=== PATIENT | female | born 1950 | race Caucasian/White ===

== ENCOUNTER → 2016-10-21 | Outpatient (CLI) | payer OTHER ==
[~2016-10-21] MED LIST: ACET-24 PO; ADAL1KIT SC; ALBUAER2 INH; ASPEC325 PO; CALC-20 PO; CETI10TA10 PO; CHOL100010 PO; FOLI1TAB7 PO; LISI10TA PO; MAGN400C2 PO; MONT1TAB3 PO; MORP-157 PO; MULT-506 PO; PROP60CA PO; RXC5 PO; SIMV20TA5 PO; VENL150T33 PO; [UNRECOGNIZED DRUG - CODE] PO
[2016-10-21 13:10] LABS: BASO % 1.9 %; BASO ABS # 0.12 K/uL (0-0.2); COMPLETE YES; EOS % 6.2 %; HEMATOCRIT 40.4 % (37-47); LYMPH % 23.3 %; LYMPH ABS # 1.47 K/uL (1.2-3.4); MEAN CELL VOLUME 86.3 fL (80-100); MEAN CORPUSCULAR HEMOGLOBIN 29.1 pg (25-34); MEAN CORPUSCULAR HGB CONC 33.7 g/dl (32-36); MEAN PLATELET VOLUME 11.1 fL (7.4-10.4); MONO % 14.9 %; NEUT % 53.7 %; PLATELET COUNT 203 K/uL (130-400); RED BLOOD COUNT 4.68 M/uL (4.2-5.4)
[2016-10-21 13:42] LABS: ALT/SGPT 36 U/L (12-78); AST/SGOT 22 U/L (15-37); BLOOD UREA NITROGEN 17 mg/dl (7-18); BUN/CREATININE RATIO 16.5 (10-20); CALCIUM 9.1 mg/dl (8.5-10.1); CARBON DIOXIDE 28 mmol/L (21-32); CHLORIDE 104 mmol/L (98-107); GLUCOSE 82 mg/dl (70-99); POTASSIUM 3.7 mmol/L (3.5-5.1); SODIUM 141 mmol/L (136-145)
[2016-10-21 13:44] LABS: ALB/GLOB RATIO 1.2 (0.9-2); ALKALINE PHOSPHATASE 85 U/L (45-117)
== END | disposition home or self-care (01) ==
LOC: C.LAB1850 11:48
PROVIDERS: ATTEND Internal Medicine
DX: K50.90 Crohn's disease, unspecified, without complications (principal)

== ENCOUNTER → 2017-03-07 | Outpatient (CLI) | payer OTHER ==
[~2017-03-07] MED LIST changes: -PROP60CA PO
--- NOTE | 2017-03-07 15:19 | MAMMOGRAPHY REPORT ---
BILATERAL DIGITAL SCREENING MAMMOGRAM WITH CAD: 03/07/2017 CLINICAL HISTORY: Routine screening. Patient has no complaints. TECHNIQUE: Bilateral CC and MLO views were obtained. Current study was also evaluated with a Compute r Aided Detection (CAD) system. COMPARISON: Comparison is made to exams dated: 03/04/2016 mammogram, 03/18/2014 mammogram, 02/27/2013 m ammogram, 02/22/2012 mammogram, 01/22/2011 ultrasound, and 01/22/2011 mammogram - [facility]. BREAST COMPOSITION: There are scattered areas of fibroglandular density in both breasts. FINDINGS: There is a stable intramammary lymph node in the right upper outer quadrant. The parenchy mal pattern is similar to prior mammograms. No new suspicious mass, architectural distortion or clus ter of microcalcifications is seen. IMPRESSION: ACR BI-RADS CATEGORY 1: NEGATIVE There is no mammographic evidence of malignancy. A 1 year screening mammogram is recommended. The pa tient will receive written notification of the results. Approximately 10% of breast cancers are not detected with mammography. A negative mammographic report should not delay biopsy if a clinically suggestive mass is present. Nayeli Steele M.D. ay/:03/07/2017 14:58:43 Authorization Manager: Jo Pappas RT(R)(M), [facility] letter sent: Normal 1/2 BI-RADS Code: ACR BI-RADS Category 1: Negative
== END | disposition home or self-care (01) ==
LOC: C.MAMM 13:39
PROVIDERS: ATTEND Nurse Practitioner
DX: Z12.31 Encounter for screening mammogram for malignant neoplasm of breast (principal)

== ENCOUNTER 2017-04-05 05:24 | Inpatient (IN) | payer OTHER ==
[2017-03-04 11:10] VITALS: BMI 31.0
--- NOTE | 2017-03-04 11:42 | PAT Medication Instructions ---
Service Date Mar 04, 2017. Current Home Medication List Adalimumab (Humira), 40 MG SC Q2WK Albuterol (Ventolin), 2 PUFFS INH QID PRN for PRN Calcium Carbonate-Vitamin D (Calcium 600 + D), 1 TAB PO QPM Cetirizine Hcl (Zyrtec), 10 MG PO QAM Cholecalciferol (Vitamin D), 1,000 INTER.UNIT PO QAM Digestive Enzymes (Betaine Hcl), 2 CAP PO TIDM Folic Acid (Folvite), 1 MG PO QAM Lisinopril (Prinivil), 10 MG PO QAM Magnesium Oxide (Magnesium Oxide), 400 MG PO BID Montelukast Sodium (Singulair), 10 MG PO QPM Multivitamin (Multivitamin), 1 TAB PO BID Simvastatin (Zocor), 20 MG PO HS Venlafaxine Hcl (Venlafaxine Hcl Er), 300 MG PO HS Medication Instructions For Your Scheduled Surgery Adalimumab (Humira), 40 MG SC Q2WK (hold 2 weeks prior to surgery per surgeon instructions) - Hold the following medications the morning of surgery: Multivitamin (Multivitamin), 1 TAB PO BID Magnesium Oxide (Magnesium Oxide), 400 MG PO BID Lisinopril (Prinivil), 10 MG PO QAM Folic Acid (Folvite), 1 MG PO QAM Cetirizine Hcl (Zyrtec), 10 MG PO QAM Cholecalciferol (Vitamin D), 1,000 INTER.UNIT PO QAM Digestive Enzymes (Betaine Hcl), 2 CAP PO TIDM - Take the following medications the morning of surgery with a sip of water: Albuterol (Ventolin), 2 PUFFS INH QID PRN for PRN (bring with you to hospital on day of surgery) - Take the following medications as scheduled the night before surgery: Simvastatin (Zocor), 20 MG PO HS Venlafaxine Hcl (Venlafaxine Hcl Er), 300 MG PO HS Multivitamin (Multivitamin), 1 TAB PO BID Montelukast Sodium (Singulair), 10 MG PO QPM Magnesium Oxide (Magnesium Oxide), 400 MG PO BID Digestive Enzymes (Betaine Hcl), 2 CAP PO TID Calcium Carbonate-Vitamin D (Calcium 600 + D), 1 TAB PO QPM Albuterol (Ventolin), 2 PUFFS INH QID PRN for PRN If you have any questions please call us at [phone] or [phone] ( Xin) or [phone]
[2017-03-04 12:22] LABS: BASO % 1.2 %; BASO ABS # 0.08 K/uL (0-0.2); COMPLETE YES; HEMATOCRIT 41.4 % (37-47); IG% 0.1 %; LYMPH ABS # 2.68 K/uL (1.2-3.4); MEAN CELL VOLUME 86.4 fL (80-100); MEAN CORPUSCULAR HEMOGLOBIN 28.6 pg (25-34); MEAN CORPUSCULAR HGB CONC 33.1 g/dl (32-36); MEAN PLATELET VOLUME 10.9 fL (7.4-10.4); MONO % 8.6 %; NEUT % 45.1 %; PLATELET COUNT 215 K/uL (130-400); RED BLOOD COUNT 4.79 M/uL (4.2-5.4); WHITE BLOOD COUNT 6.87 K/uL (4.8-10.8)
[2017-03-04 12:37] LABS: PROTHROMBIN TIME (PATIENT) 10.7 SECONDS (9.0-12.0)
[2017-03-04 12:41] LABS: BLOOD UREA NITROGEN 18 mg/dl (7-18); BUN/CREATININE RATIO 17.8 (10-20); C-REACTIVE PROTEIN < 0.29 mg/dl (0-0.29); CALCIUM 9.8 mg/dl (8.5-10.1); CARBON DIOXIDE 28 mmol/L (21-32); CHLORIDE 106 mmol/L (98-107); GLUCOSE 85 mg/dl (70-99); POTASSIUM 3.7 mmol/L (3.5-5.1); SODIUM 141 mmol/L (136-145)
--- NOTE | 2017-04-01 08:06 | HISTORY & PHYSICAL EXAMINATION ---
DATE OF ADMISSION: 04/05/2017 CHIEF COMPLAINT: Bilateral knee pain, right side greater than left. HISTORY OF PRESENT ILLNESS: A 66-year-old white female status post a right knee arthroscopy done just about 2 years ago who presents for definitive treatment for her right knee pain primarily. She has had very poor response to the knee arthroscopy, really did not help her much at all. Postop she had recurrent effusions treated with aspiration and injection which provided very temporary relief. Over time pain has become more disabling. She has tried anti-inflammatories with minimal relief. She has pain with every step. Pain is more on the medial side of the knee. She has a very limited walking tolerance. Having difficulty maintaining any degree of activity. X-rays show progressive knee arthritis and now she wants to proceed with knee replacement. PAST MEDICAL HISTORY: 1. Hypertension. 2. Elevated cholesterol. 3. Mild asthma. 4. Prediabetes. 5. Migraine headaches. 6. Hiatal hernia. 7. Moderate obesity with a BMI of 31.4. 8. Osteoarthritis. PAST SURGICAL HISTORY: Includes: 1. Appendectomy and T&A. 2. Right knee arthroscopy done 01/01/2015. ALLERGIES: ADVAIR, BACLOFEN, BIAXIN, FIORICET. CURRENT MEDICINES: Include: 1. Betaine hydrochloride 605 mg 2 tablets with each meal. 2. Calcium 2,000 mg. 3. Folic acid 1 mg. 4. Humira 40 mg every other week. 5. Lisinopril 10 mg a day. 6. Magnesium 500 mg a day. 7. Montelukast 10 mg a day. 8. Multivitamin. 9. Simvastatin 20 mg in the evening. 10. Venlafaxine 150 mg tablets 2 in the evening. 11. Vitamin D3 once a day. 12. Zyrtec. SOCIAL HISTORY: A 66-year-old white female. She is . FAMILY HISTORY: Noncontributory. REVIEW OF SYSTEMS: Negative for diabetes, neurologic problems, vascular problems, bleeding disorders. She is on Humira every other week. NECK: No history of DVT or PE. PHYSICAL EXAMINATION: GENERAL: Reveals a healthy pleasant, middle-aged female. She looks to be in good health. HEAD, EYES, EARS, NOSE, AND THROAT EXAMINATION: Benign. NECK: Supple. No lymphadenopathy. LUNGS: Clear to auscultation. HEART: Has a regular rate and rhythm. ABDOMEN: Soft, nontender, nondistended. EXTREMITY EXAMINATION: Grossly neurovascularly intact except as follows: Examination of the right knee reveals patient ambulates with a bit of a limp. She has got slight varus alignment to her knee. Walks with a bit of a stiff knee gait. Moderate-sized knee effusion. Range of motion is 10 degrees short of full extension and 120 degrees of flexion. X-RAYS: X-rays of the right knee reveal advanced right knee DJD. She has complete loss of medial joint space. This has progressed significantly over the past 2 years. She has got some patellofemoral disease as well. ASSESSMENT: A 66-year-old white female 2 years out from right knee arthroscopy, partial meniscectomy, chondroplasty with progressive knee arthritis unresponsive to conservative treatment. PLAN: We are going to take him to the operating room and do a right total knee replacement. The risks and benefits of this procedure were explained to the patient including but not limited to DVT, PE, , infection, neurological injury, vascular injury, bleeding problem, pain, limited range of motion, stiffness, failure to relief symptoms, incomplete relief of symptoms, need for further surgery in the future, fracture, leg length inequality, nerve palsy, need for blood transfusion, etc. The patient understands and desires to proceed. Informed consent was obtained. We did talk about holding her Humira 2 weeks preop and 2 weeks postop. She will hold the lisinopril the morning of surgery and hold the Aleve 10 days preop. As far as discharge plans, she is planning to be discharged home using [facility] home health program.
[~2017-04-05] VITALS: Ht 165.1 cm; Wt 85.5 kg
[2017-04-05] VITALS (9 sets, daily range): BP systolic 134–166; BP diastolic 71–99; PULSE 63–79; TEMP 36.4–37; O2SAT 96–100; Ht 165.1 cm; Wt 85.5 kg
[~2017-04-05 05:24] MED LIST changes: -ACET-24 PO; -ASPEC325 PO; -MORP-157 PO; -RXC5 PO
[2017-04-05] MEDS ORDERED: LACTATED RINGER'S 1000ML 1,000 ML IV SCH (06:00)
[2017-04-05] MEDS ORDERED: CEFAZOLIN 2000 MG/60 ML D5W 60 ML IV SCH (06:00)
[2017-04-05] MEDS ORDERED: LACTATED RINGER'S 1000ML IV SCH (06:00)
[2017-04-05] MEDS ORDERED: METOCLOPRAMIDE HCL 10 MG TAB PO SCH (06:00)
[2017-04-05] MEDS ORDERED: SCOPOLAMINE 1.5 MG TDSY TD SCH (06:00)
[2017-04-05] MEDS ORDERED: ACETAMINOPHEN 500 MG TAB PO SCH (06:00)
[2017-04-05] MEDS ORDERED: LACTATED RINGER'S 1000ML 500 ML IV ONE (06:00)
[2017-04-05] MEDS ORDERED: TRANEXAMIC ACID INJ 1,000 MG in SODIUM CHLORIDE 0.9% 100ML 100 ML IV SCH ×2 (06:00→15:00)
[2017-04-05] MEDS ORDERED: FAMOTIDINE 20 MG TAB PO SCH (06:00)
[2017-04-05] MEDS ORDERED: BUPIVACAINE LIPOSOME 266 MG, BUPIVACAINE/EPINEPHRINE INJ 50 ML, SODIUM CHLORIDE 0.9% PF... INFIL SCH ×3 (06:00)
[2017-04-05] MEDS ORDERED: GABAPENTIN 300 MG CAP PO SCH (06:00)
[2017-04-05] MEDS ORDERED: BUPIVACAINE/EPINEPHRINE 0.25% 10 ML VIAL ONE ×3 (06:17→06:34)
[2017-04-05] MEDS ORDERED: BUPIVACAINE 0.5 % 5 MG/1 ML PF 10ML VIAL ONE (06:17)
[2017-04-05] MEDS ORDERED: DEXAMETHASONE SOD INJ 4 MG/ML VIAL ONE (06:18)
[2017-04-05] MEDS ORDERED: SODIUM CHLORIDE 0.9% PF 50 ML VIAL ONE (06:29)
[2017-04-05] MEDS ORDERED: BUPIVACAINE LIPOSOME 1/3% 266 MG/20 ML VIAL INFIL ONE (06:29)
[2017-04-05] MEDS ORDERED: BACITRACIN 50000 UNIT VIAL ONE (06:29)
[2017-04-05] MEDS ORDERED: MIDAZOLAM HCL 1 MG/ML 2ML VIAL ONE (06:34)
[2017-04-05] MEDS ORDERED: FENTANYL CITRATE INJ 50 MCG/1 ML 2 ML VIAL ONE ×2 (06:34→07:55)
--- NOTE | 2017-04-05 06:46 | History & Physical Bridge Note ---
H&P Re-Evaluation Bridge Note: I have examined the patient, reviewed the History & Physical and in the interval since the performance of the History & Physical I have noted the following changes of clinical significance: No changes noted
[2017-04-05] MEDS ORDERED: ONDANSETRON INJ 2 MG/ML 2 ML VIAL IV PRN ×2 (07:15→09:00)
[2017-04-05] MEDS ORDERED: EpHEDrine SULFATE INJ 50 MG/ML AMP IV PRN (07:15)
[2017-04-05] MEDS ORDERED: FENTANYL CITRATE INJ 50 MCG/1 ML 2 ML VIAL IV PRN (07:15)
[2017-04-05] MEDS ORDERED: ATROPINE SULFATE 0.1 MG/ML 5ML SYR IV PRN (07:15)
[2017-04-05] MEDS ORDERED: PROMETHAZINE HCL INJ 6.25 MG in SODIUM CHLORIDE 0.9% 50ML 50 ML IV PRN (07:15)
[2017-04-05] MEDS ORDERED: VANCOMYCIN HCL 1000MG/20ML VIAL ONE (07:25)
[2017-04-05] MEDS ORDERED: PROPOFOL IV EMULSION 10 MG/ML 20 ML VIAL IV ONE ×2 (07:42)
[2017-04-05] MEDS ORDERED: LIDOCAINE HCL 2% 2 ML VIAL (20MG/ML) ONE (07:42)
--- NOTE | 2017-04-05 08:52 | [facility] Post Operative Brief Note ---
Immediate Operative Summary Operative Date Apr 05, 2017. Pre-Operative Diagnosis Right Knee Degenerative Joint Disease Post-Operative Diagnosis Same as preop Procedure(s) Performed Right Total Knee Arthroplasty Surgeon Dr. Avtar Nguyen Airplane Pilot Supervisor Surgeon(s) Carlos Elizondo PA-C Estimated Blood Loss 50 ml Findings Right Knee DJD Fluids (cc crystalloids) 1500 cc Specimens A. Right Knee Bone and Tissue Drains None Anesthesia Spinal Complication(s) None Disposition Recovery Room / PACU
[2017-04-05] MEDS ORDERED: ALUMINUM/MAGNESIUM/SIMETH (MAALOX MAX) 30 ML UDC PO PRN (09:00)
[2017-04-05] MEDS ORDERED: METOCLOPRAMIDE HCL INJ 5 MG/ML 2 ML VIAL IV PRN (09:00)
[2017-04-05] MEDS ORDERED: HYDROmorphone INJ 0.5 MG/0.5 ML SYR IV PRN (09:00)
[2017-04-05] MEDS ORDERED: SILVER SULFADIAZINE 1% CR 50 GM JAR EXT PRN (09:00)
[2017-04-05] MEDS ORDERED: OXYCODONE HCL IR 5 MG TAB (IMMEDIATE RELEASE) PO PRN (09:00)
[2017-04-05] MEDS ORDERED: BISACODYL 10 MG SUPP PR PRN (09:00)
[2017-04-05] MEDS ORDERED: MULTIVITAMIN TAB PO SCH (09:00)
[2017-04-05] MEDS ORDERED: ZOLPIDEM TARTRATE 5 MG TAB PO PRN (09:00)
[2017-04-05] MEDS ORDERED: ALBUTEROL HFA 8 GM INHALER INH PRN (09:00)
[2017-04-05] MEDS ORDERED: MAGNESIUM HYDROXIDE SUSP 30 ML UDC PO PRN (09:00)
--- NOTE | 2017-04-05 09:25 | DIAGNOSTIC IMAGING REPORT ---
RIGHT KNEE 2 VIEWS History: Right total knee arthroplasty. Degenerative arthritis. Postop. FINDINGS: The patient is status post a right total knee arthroplasty. The hardware is intact. No fracture or dislocation. Skin ankita are in place. IMPRESSION: Right total knee arthroplasty. No evidence for hardware complication. Electronically signed by: Cody Bravo M.D. 04/05/2017 9:23 AM Dictated Date/Time: 04/05/2017 9:23 AM
--- NOTE | 2017-04-05 09:40 | Anesthesiology Progress Note ---
Anesthesia Post Op Note Date & Time Apr 05, 2017 at 09:40 Vital Signs Pain Intensity: 0 Vital Signs Past 12 Hours Date Time Temp Pulse Resp B/P (MAP) Pulse Ox O2 Delivery O2 Flow Rate FiO2 04/05/17 09:25 36.9 76 18 128/65 99 Nasal Cannula 2 04/05/17 09:10 36.9 78 18 130/65 99 Nasal Cannula 2 04/05/17 09:02 79 18 123/69 99 Mask 5 04/05/17 08:53 36.5 79 16 119/62 94 Mask 5 04/05/17 05:43 36.9 75 16 146/99 96 Room Air Notes Mental Status: alert / awake / arousable, participated in evaluation Pt Amnestic to Procedure: Yes Nausea / Vomiting: adequately controlled Pain: adequately controlled Airway Patency, RR, SpO2: stable & adequate BP & HR: stable & adequate Hydration State: stable & adequate Neuraxial Anesthesia: was administered, sensory block is resolving Anesthetic Complications: no major complications apparent
--- NOTE | 2017-04-05 10:38 | OPERATIVE REPORT ---
DATE OF OPERATION: 04/05/2017 PREOPERATIVE DIAGNOSIS: Right knee degenerative joint disease. POSTOPERATIVE DIAGNOSIS: Same. PROCEDURE PERFORMED: Right cemented posterior stabilized total knee arthroplasty. SURGEON: Avtar Nguyen M.D. COFFEE ROASTER: Carlos Elizondo PA-C. COMPLICATIONS: None. ESTIMATED BLOOD LOSS: 50 mL. TOURNIQUET TIME: 61 minutes at 300 mmHg. FLUID REPLACEMENT: 1500 mL crystalloid fluid replacement. ANESTHETIC: Spinal with adductor canal block. DRAINS: None. SPECIMENS: Right knee sent for pathology. OPERATIVE INDICATIONS: The patient is a 66-year-old fairly active female who has had a several year history of right knee pain and discomfort. She underwent a right knee arthroscopy, partial meniscectomy 2 years ago with minimal relief. Over the past 2 years, she developed progressive increasing pain, discomfort and arthritic changes in her knee. X-rays show progressive loss of her medial joint space. The patient would like to proceed with operative treatment. OPERATIVE FINDINGS: Operative findings revealed advanced right knee DJD. She had pretty extensive grade 4 changes of the medial femoral condyle and medial tibial plateau as well as the patellofemoral joint. The lateral compartment was pretty well preserved. Moderate size joint effusion. She had a varus deformity to her knee. OPERATIVE IMPLANTS: Operative implants consisted of: 1. Biomet Vanguard size 62.5 right posterior stabilized femoral component. 2. Biomet size 71 tibial tray. 3. A 10 mm posterior stabilized polyethylene insert. 4. A 31 x 8 all poly patella. OPERATIVE PROCEDURE: The patient taken to the operating room, identified and placed on the operating table in supine position. All contact areas were appropriately padded. IV antibiotics were provided by the anesthesia team. A spinal anesthetic and adductor canal block had been provided in the holding area. Butts catheter was placed in sterile fashion. Right thigh tourniquet was then placed and the right lower extremity was then prepped and draped in the usual sterile fashion. The right leg was elevated and exsanguinated with Esmarch and tourniquet was placed at 300 mmHg. An anterior approach to the right knee was then performed through a longitudinal incision centered over the patella. Sharp dissection was carried out through the subcutaneous tissues down to the level of the extensor mechanism. Medial parapatellar arthrotomy incision was made. Some subperiosteal dissection was carried out medially. The fat pad was resected from beneath the patellar tendon. Lateral patellofemoral ligament was released. The patella was everted and knee was flexed. The osteophytes were taken off the distal femur. The ACL and PCL were then released from the distal femur and the tibia subluxated anteriorly. The external tibial alignment jig was then placed in the anterior face of the tibia and adjusted 14 mm medially. Proximal tibial cut was made to remove about 2 mm of bone from the most deficient aspect of the medial tibial plateau. Some osteophytes were taken off medial and posteromedially. Tibia was sized to a size 71. Attention was then drawn to the femur. The distal femur was entered with a sharp drill. Intramedullary canal was suctioned. A right 5 degree valgus cutting guide was placed. The distal femoral cutting block was pinned in place. Distal femoral cut was made to take an additional 3 mm of bone off the distal femur. The femur was then sized to a size 62.5. We did downsize this almost an entire size. The AP cutting block was pinned parallel to the epicondylar axis, which was 3 degrees of external rotation. The anterior cut, anterior chamfer, posterior cut, posterior chamfer cuts were made. Box cutting guide was placed and adjusted slightly lateral and the box cut was made. The knee was flexed. The remnants of the medial and lateral meniscus were excised. The osteophytes were taken off the posterior aspect of the femur. Trial femoral component was placed. Tibial tray was pinned in maximum external rotation and the drill and stem punch were used to create defect in proximal tibia for the tibial tray. The knee was then trialed and a 10 mm insert fit most appropriately. Attention was then drawn to the patella. The patella was cleaned of all soft tissues. Patella thickness measured 20 mm in thickness and was cut down to 13. It was sized to a size 31 patella. Lateral osteophyte was removed. Patella button was placed. Knee was taken through range of motion and patella tracked nicely with no thumbs test. Attention was then drawn towards placement of permanent components. All trial components were removed. A bone plug was placed in the distal femur to limit blood loss. A double batch of Palacos G cement was mixed. A right size 62.5 posterior stabilized femoral component, size 71 tibial tray, a 10 mm posterior stabilized polyethylene insert, and a 31 x 8 all poly patella were then cemented in place. Knee was brought out into full extension until cement hardened. A final cement check was then performed. Pericapsular tissues were injected with a total of 100 mL of a combination of 20 mL of Exparel, 30 mL of normal saline, 50 mL of 0.25% Marcaine with epinephrine. The patient did receive 1 gram of tranexamic acid. The tourniquet was then let down for final tourniquet time of 61 minutes. Hemostasis was assured with use of electrocautery. The wound was once again irrigated. The extensor mechanism was then closed with a combination of #1 PDS suture and #1 Vicryl suture in a [id number] fashion. Extensor mechanism was checked and found to be intact. The subcutaneous tissues then closed with 2-0 Dexon suture in a buried interrupted fashion. Skin was closed skin ankita. Leg was then cleaned and dried and a sterile dressing of Xeroform, 4 x 4, sterile cast padding and Chacorta bandage were applied. The patient then transferred to the recovery room in stable condition. The patient tolerated the procedure well with no complications. All needle and sponge counts were correct at the end of the operation. Upon first mixing the cement, the cement was mixed for about 30 seconds and then mixing machine broke. We had opened up an additional 2 bags of cement and we mixed the cement which added probably about 10 minutes to the surgical time. I attest to the content of the Intraoperative Record and any orders documented therein. Any exception s are noted below.
[2017-04-05] MEDS ORDERED: D5W AND 1/2NSS + 20MEQ KCL 1,000 ML IV SCH (11:30)
[2017-04-05] MEDS ORDERED: DIGESTIVE ENZYMES PO SCH (12:00)
[2017-04-05] MEDS: PANTOprazole SOD 40 MG TAB PO SCH (12:16)
[2017-04-05] MEDS: LISINOPRIL 10 MG TAB PO SCH (12:17)
[2017-04-05] MEDS: CHOLECALCIFEROL 1000 INTER.UNIT TAB PO SCH (12:17)
[2017-04-05] MEDS: CETIRIZINE HCL 10 MG TAB PO SCH (12:17)
[2017-04-05] MEDS: FERROUS GLUCONATE 324 MG TAB PO SCH ×2 (12:17→17:44)
[2017-04-05] MEDS ORDERED: VANCOMYCIN INJ 1,250 MG in SODIUM CHLORIDE 0.9% 250ML 250 ML IV SCH (14:00)
[2017-04-05] MEDS: ACETAMINOPHEN 500 MG TAB PO SCH ×2 (14:02→21:49)
[2017-04-05] MEDS: KETOROLAC TROMETHAMINE 15 MG/ML VIAL IV. SCH ×2 (14:03→19:30)
--- NOTE | 2017-04-05 14:31 | Progress Note ---
Orthopedic SOAP Note Subjective Date of Service: Apr 05, 2017. Post OP Day: Post-op RIght TKR Reports: feeling well, pain controlled w PO medications Additional Notes: No chest pain or SOB. Objective calves soft nontender, N/V intact, capillary refill less than 2 sec., dressing C /D/I, A&O x3, toes mobile, CMS intact Date Time Temp Pulse Resp B/P (MAP) Pulse Ox O2 Delivery O2 Flow Rate FiO2 04/05/17 13:13 37.0 79 17 134/71 (92) 98 Nasal Cannula 3.0 04/05/17 12:13 36.8 69 19 152/73 (99) 98 Nasal Cannula 2.0 04/05/17 11:05 36.5 63 18 135/81 (99) 100 Nasal Cannula 3.0 04/05/17 10:40 36.4 70 18 153/79 (103) 99 Nasal Cannula 2.0 04/05/17 10:10 99 Nasal Cannula 2.0 04/05/17 10:10 36.5 77 16 139/72 (94) 99 Nasal Cannula 2.5 04/05/17 10:10 99 Nasal Cannula 2.5 04/05/17 09:50 36.9 73 18 125/64 99 Nasal Cannula 2 04/05/17 09:40 36.9 75 18 125/62 99 Nasal Cannula 2 04/05/17 09:25 36.9 76 18 128/65 99 Nasal Cannula 2 04/05/17 09:10 36.9 78 18 130/65 99 Nasal Cannula 2 04/05/17 09:02 79 18 123/69 99 Mask 5 04/05/17 08:53 36.5 79 16 119/62 94 Mask 5 04/05/17 05:43 36.9 75 16 146/99 96 Room Air Additional Notes: X-rays from Recovery room show well-positioned TKR. No problems Assessment Post-op Right TKR doing well. Pain controlled. N/V intact. Plan DVT prophylaxis - TEDS + SCDS + ECASA IV antibiotics X 24 hours Pain Control - doing well on current regimine. PT/OT - Right TKR Protocol Disposition - Plan to go home with home health once recovered.
[2017-04-05] MEDS: CHECK SCOPOLAMINE PATCH PLACEMENT SCH ×2 (15:44→23:43)
[2017-04-05] MEDS: CEFAZOLIN IV 2,000 MG in DEXTROSE 5% 50ML 50 ML IV SCH (17:44)
[2017-04-05] MEDS ORDERED: NURSING VERBAL MED ORDER ONE (20:00)
[2017-04-05] MEDS: SODIUM CHLOR 0.45% + 20MEQ KCL 1,000 ML IV SCH (20:11)
[2017-04-05] MEDS: CALCIUM 600MG + VIT D 400 IU TAB PO SCH (20:56)
[2017-04-05] MEDS: MONTELUKAST SOD 10 MG TAB PO SCH (20:57)
[2017-04-05] MEDS: VENLAFAXINE HCL XR 150 MG CAPXR PO SCH (20:57)
[2017-04-05] MEDS: ASPIRIN 325 MG ECTAB PO SCH (20:57)
[2017-04-05] MEDS: SENNA 8.6 MG TAB PO SCH (20:57)
[2017-04-05] MEDS: MAGNESIUM OXIDE 400 MG TAB PO SCH (20:57)
[2017-04-05] MEDS: DOCUSATE SODIUM 100 MG CAP PO SCH (20:57)
[2017-04-05] MEDS: MULTIVITAMIN TAB PO SCH (20:57)
[2017-04-05] MEDS: SIMVASTATIN 20 MG TAB PO SCH (20:58)
[2017-04-05] MEDS ORDERED: TAPENTADOL ER 50 MG TABCR PO SCH (21:00)
[2017-04-06] MEDS: CEFAZOLIN IV 2,000 MG in DEXTROSE 5% 50ML 50 ML IV SCH (01:28)
[2017-04-06] MEDS: KETOROLAC TROMETHAMINE 15 MG/ML VIAL IV. SCH ×4 (01:30→20:23)
[2017-04-06 03:27] VITALS: BP 156/89; PULSE 75; TEMP 36.9; O2SAT 97
[2017-04-06] MEDS: ACETAMINOPHEN 500 MG TAB PO SCH ×3 (06:07→21:58)
[2017-04-06] MEDS: SODIUM CHLOR 0.45% + 20MEQ KCL 1,000 ML IV SCH (06:08)
[2017-04-06 06:21] LABS: HEMATOCRIT 33.6 % (37-47); MEAN CORPUSCULAR HGB CONC 33.3 g/dl (32-36); MEAN PLATELET VOLUME 10.7 fL (7.4-10.4); PLATELET COUNT 178 K/uL (130-400); RED BLOOD COUNT 3.86 M/uL (4.2-5.4); WHITE BLOOD COUNT 13.46 K/uL (4.8-10.8)
[2017-04-06 07:00] LABS: BUN/CREATININE RATIO 19.9 (10-20); CALCIUM 8.8 mg/dl (8.5-10.1); CREATININE 1.1 mg/dl (0.60-1.20)
[2017-04-06 07:45] VITALS: BP 158/84; PULSE 71; TEMP 37; O2SAT 96
[2017-04-06 07:47] VITALS: O2SAT 96
[2017-04-06] MEDS ORDERED: RXC5 PO (08:36)
[2017-04-06] MEDS ORDERED: ACET-24 PO (08:36)
[2017-04-06] MEDS ORDERED: MORP-157 PO (08:36)
[2017-04-06] MEDS ORDERED: ASPEC325 PO (08:36)
--- NOTE | 2017-04-06 08:38 | Discharge Instructions ---
Discharge Instructions Date of Service Apr 06, 2017. Admission Reason for Admission: Right Knee Degenerative Joint Disease Discharge Discharge Diagnosis / Problem: Right Knee Replacement Discharge Goals Goal(s): Decrease discomfort, Improve function, Increase independence, Improve disease control, Therapeutic intervention Activity Recommendations Activity Limitations: per Instructions/Follow-up section Weightbearing Status: Right weightbearing . Instructions / Follow-Up Instructions / Follow-Up ACTIVITY RECOMMENDATIONS: Physical Therapy: * You will go to physical therapy three times each week for four to six weeks after your surgery in order to regain your knee range of motion and to retrain your knee to work properly. * It is just as important to make sure you are getting your knee perfectly straight as it is to regain your knee bend. * Taking a pain pill an hour before therapy can help you have a more productive and comfortable therapy session. Home Exercise: * You were shown a series of exercises (heel props, heel slides, etc.) in the hospital. Do these exercises three to four times each day including the exercises you were shown in physical therapy. Walking: * Get up and walk several times each day. For the first four weeks, try not to stand or walk for more than one hour at a time. If you do stand or walk for more than one hour, you will not hurt anything, but your knee and leg will likely swell. * As you feel comfortable, you may change from the walker or crutches to a cane and then to independent walking. MEDICATIONS: New Medicine: * You will likely be taking one or more of these medications: 1. MS Contin - A long-acting pain medication. Take 1 tablet twice a day for the first ten days to decrease your baseline level of pain. 2. Oxycodone - A quick and shorter-acting pain medication. Take one to two tablets every four to six hours to lessen your pain. 3. Aspirin - Thins your blood to lessen the chance of forming a blood clot. * The most common side effects of pain medicine and iron are nausea and constipation. If nausea or constipation is too much of a problem or if you have any questions about your new medicines or doses, call [facility] at . We will try to help you manage these issues. VERY IMPORTANT TO READ AND REVIEW" Pain: * The immediate post-operative period after knee replacement surgery is often quite painful. * You are given a prescription for pain medicine. You should take it, as directed, when you need it, especially before physical therapy and before going to bed. Pain that interferes with sleep is very common and can last several months. * You will likely need pain medicine for the first four to six weeks. It will not stop all of the pain. The pain will lessen and as you feel better, you may change to milder pain medicine such as Tylenol. * The most common side effects of pain medicine are nausea and constipation, so don't take more than you need. SPECIAL CARE INSTRUCTIONS: TEDs/Elastic Stockings: * The white elastic stockings help limit swelling and prevent blood clots from forming in your legs. The more you wear them, the more they work. * Wear them for six weeks after knee replacement surgery and four weeks after partial knee replacement. Prevention of Infection: * Take antibiotics one hour before any dental cleaning, dental work, urological procedure, gastrointestinal procedure or any invasive surgery in order to prevent your new joint from getting infected. * You may get the antibiotics from the doctor performing the procedure or you may call our office at before and we will call in a prescription to the pharmacy of your choice. Things to Watch For: * Drainage from the incision site that occurs more than one week after your surgery. * Severely increased knee/leg pain or swelling. * Increased redness at the incision site. * Fever above 102 degrees Fahrenheit. * Unusual chest pain or shortness of breath. * Unusual pain or burning with urination. Call [facility] at with any of the above problems or if you have any questions about your medicines or recovery. FOLLOW UP VISIT: Make an appointment to see your doctor for approximately two weeks after surgery for a progress check and staple removal by calling the office at . Current Hospital Diet Patient's current hospital diet: Regular Diet, Diabetes Type 2 Diet Discharge Diet Recommended Diet: Diabetes Type 2 Diet Procedures Procedures Performed: Right Total Knee Arthroplasty Pending Studies Studies pending at discharge: no Medical Emergencies . Who to Call and When: Medical Emergencies: If at any time you feel your situation is an emergency, please call 211 immediately. . Non-Emergent Contact Non-Emergency issues call your: Surgeon . "Provider Documentation" section prepared by Avtar Nguyen. . VTE Core Measure Inpt VTE Proph given/why not?: Other Anticoagulation, T.E.D. Stockings, SCD's
--- NOTE | 2017-04-06 08:42 | PROGRESS NOTE ---
DATE: 04/06/2017 SUBJECTIVE: A 66-year-old female postop day 1 from a right knee replacement. She is doing well. Really not having any pain. Had a good night. No chest pain or shortness of breath. Not feeling dizzy or lightheaded. OBJECTIVE: VITAL SIGNS: Temperature 37.0. Vital signs stable. Some mild hypertension. PHYSICAL EXAMINATION: GENERAL: Reveals a pleasant middle-aged female. She is sitting up in bed, looks quite comfortable. LUNGS: Clear to auscultation. HEART: Regular rate and rhythm. ABDOMEN: Soft, nontender, nondistended. EXTREMITIES: Grossly neurovascularly intact except as follows: Examination of the right leg reveals the dressing to be clean, dry and intact. Leg is well aligned. She can dorsiflex and plantarflex her foot appropriately. NEUROLOGIC: She is neurologically intact. LABORATORY DATA: Hemoglobin 11.2, hematocrit 33.6, white cell count 13.46. Electrolytes are stable. ASSESSMENT: A 66-year-old female postop day 1 from right knee replacement, doing well. Pain is controlled. She is neurologically intact. Mild hypertension. PLAN: 1. DVT prophylaxis including thigh-high TEDs, SCDs, and aspirin twice a day. 2. PT/OT. Weightbearing as tolerated. Right total knee protocol. 3. Pain control, doing well with current pain regimen. 4. Anemia. Mildly anemic. Continue iron supplementation. 5. Disposition: Plan to discharge to home with some home health once adequately recovered.
[2017-04-06] MEDS: MAGNESIUM OXIDE 400 MG TAB PO SCH ×2 (08:47→20:27)
[2017-04-06] MEDS: MULTIVITAMIN TAB PO SCH ×2 (08:47→20:27)
[2017-04-06] MEDS: CHECK SCOPOLAMINE PATCH PLACEMENT SCH ×2 (08:48→16:23)
[2017-04-06] MEDS: DOCUSATE SODIUM 100 MG CAP PO SCH ×2 (08:48→20:28)
[2017-04-06] MEDS: CETIRIZINE HCL 10 MG TAB PO SCH (08:48)
[2017-04-06] MEDS: PANTOprazole SOD 40 MG TAB PO SCH (08:49)
[2017-04-06] MEDS: LISINOPRIL 10 MG TAB PO SCH (08:49)
[2017-04-06] MEDS: CHOLECALCIFEROL 1000 INTER.UNIT TAB PO SCH (08:49)
[2017-04-06] MEDS: FERROUS GLUCONATE 324 MG TAB PO SCH ×3 (08:49→17:52)
[2017-04-06] MEDS: ASPIRIN 325 MG ECTAB PO SCH ×2 (08:49→20:28)
[2017-04-06] MEDS ORDERED: NURSING VERBAL MED ORDER ONE (09:15)
--- NOTE | 2017-04-06 10:25 | Anesthesiology Progress Note ---
Anesthesia Post Op Note Date & Time Apr 06, 2017 at 10:24 Vital Signs Pain Intensity: 0.0 Vital Signs Past 12 Hours Date Time Temp Pulse Resp B/P (MAP) Pulse Ox O2 Delivery O2 Flow Rate FiO2 04/06/17 07:47 96 Room Air 04/06/17 07:45 37.0 71 14 158/84 (108) 96 Room Air 04/06/17 07:45 Room Air 04/06/17 03:27 36.9 75 16 156/89 (111) 97 Room Air 04/05/17 23:45 Room Air 04/05/17 23:04 36.8 78 16 154/74 (100) 98 Room Air Notes Mental Status: alert / awake / arousable, participated in evaluation Pt Amnestic to Procedure: Yes Nausea / Vomiting: adequately controlled Pain: adequately controlled Airway Patency, RR, SpO2: stable & adequate BP & HR: stable & adequate Hydration State: stable & adequate Neuraxial Anesthesia: sensory block resolved Anesthetic Complications: no major complications apparent
[2017-04-06 11:26] VITALS: BP 167/72; PULSE 65; TEMP 36.7; O2SAT 97
[2017-04-06 15:22] VITALS: BP 185/88; PULSE 81; TEMP 36.8; O2SAT 97
[2017-04-06] MEDS: SENNA 8.6 MG TAB PO SCH (20:27)
[2017-04-06] MEDS: SIMVASTATIN 20 MG TAB PO SCH (20:27)
[2017-04-06] MEDS: MONTELUKAST SOD 10 MG TAB PO SCH (20:27)
[2017-04-06] MEDS: VENLAFAXINE HCL XR 150 MG CAPXR PO SCH (20:27)
[2017-04-06] MEDS: CALCIUM 600MG + VIT D 400 IU TAB PO SCH (20:27)
[2017-04-06 23:25] VITALS: BP 172/75; PULSE 69; TEMP 37; O2SAT 96
[2017-04-07] VITALS (7 sets, daily range): BP systolic 160–181; BP diastolic 74–96; PULSE 64–68; TEMP 36.5–36.9; O2SAT 96–98
[2017-04-07] MEDS: CHECK SCOPOLAMINE PATCH PLACEMENT SCH
[2017-04-07] MEDS: KETOROLAC TROMETHAMINE 15 MG/ML VIAL IV. SCH ×2 (02:09→07:27)
[2017-04-07] MEDS: ACETAMINOPHEN 500 MG TAB PO SCH ×2 (05:53→13:36)
[2017-04-07] MEDS: LISINOPRIL 10 MG TAB PO SCH (07:27)
[2017-04-07] MEDS: CETIRIZINE HCL 10 MG TAB PO SCH (07:27)
[2017-04-07] MEDS: MAGNESIUM OXIDE 400 MG TAB PO SCH (07:27)
[2017-04-07] MEDS: MULTIVITAMIN TAB PO SCH (07:27)
[2017-04-07] MEDS: CHOLECALCIFEROL 1000 INTER.UNIT TAB PO SCH (07:27)
[2017-04-07] MEDS: PANTOprazole SOD 40 MG TAB PO SCH (07:28)
[2017-04-07] MEDS: ASPIRIN 325 MG ECTAB PO SCH (07:28)
[2017-04-07] MEDS: DOCUSATE SODIUM 100 MG CAP PO SCH (07:28)
[2017-04-07] MEDS: FERROUS GLUCONATE 324 MG TAB PO SCH ×2 (07:28→12:02)
--- NOTE | 2017-04-07 07:50 | Progress Note ---
Orthopedic SOAP Note Subjective Date of Service: Apr 07, 2017. Post OP Day: POD # 2 - Right TKR Reports: feeling well, pain controlled w PO medications Objective calves soft nontender, N/V intact, capillary refill less than 2 sec., dressing C /D/I, toes mobile, CMS intact Date Time Temp Pulse Resp B/P (MAP) Pulse Ox O2 Delivery O2 Flow Rate FiO2 04/07/17 06:30 65 171/90 (117) 04/07/17 06:14 36.5 64 18 175/89 (117) 98 Room Air 04/07/17 03:27 163/96 (118) 04/07/17 00:30 181/88 (119) 04/07/17 00:30 Room Air 04/06/17 23:25 37.0 69 18 172/75 (107) 96 Room Air 04/06/17 16:25 Room Air 04/06/17 15:22 36.8 81 18 185/88 (120) 97 Room Air 04/06/17 11:26 36.7 65 18 167/72 (103) 97 Room Air Assessment Post-op Day #2 - Right TKR doing well. Pain controlled. N/V intact. Plan DVT prophylaxis - TEDS + SCDS + ECASA Pain Control - doing well on current regimine. PT/OT - Right TKR Protocol Disposition - Plan to go home with home health once recovered.
--- NOTE | 2017-04-09 11:08 | EDITING REQUIRED CODING QUERY ---
CODING QUERY ANEMIA To promote full compliance with coding requirements relating to patient care, physician participation is requested in all cases of retort pre cooker uncertainty. Please assist us with the question(s) below: Coding Question(s): The record reflects the following clinical documentation: Anemia, not POA There are several coding choices for this diagnosis and more specificity is needed for code selection. Please indicate the type of anemia this patient had: (x ) Acute blood loss anemia ( ) Acute postoperative anemia due to dilutional fluids ( ) Chronic blood loss anemia ( ) Iron deficient anemia due to blood loss ( ) Iron deficiency anemia ( ) Anemia, unspecified or other ( ) Other: (please specify) ( ) Unable to determine Thank you for your time, FRANKLIN Yan, SCOURING TRAIN OPERATOR
--- NOTE | 2017-04-11 09:42 | Discharge Summary ---
Orthopedic Discharge Summary Admission Date/Reason Apr 05, 2017 at 06:35 Right Knee Degenerative Joint Disease. Discharge Date/Disposition Apr 07, 2017 Home with services Diagnosis Principal Diagnosis: ADVANCED DJD OF RIGHT KNEE Secondary Diagnoses/Problems: 1. Hypertension. 2. Elevated cholesterol. 3. Mild asthma. 4. Prediabetes. 5. Migraine headaches. 6. Hiatal hernia. 7. Moderate obesity with a BMI of 31.4. 8. Osteoarthritis. Procedure(s) Performed RIGHT TOTAL KNEE ARTHROPLASTY Admission Physical Exam As per Admitting History & Physical. Hospital Course The patient was admitted on 04/05/2017 and underwent a right total knee arthroplasty. The patient tolerated the procedure well and there were no complications. She was transferred to PACU post operatively and then later to the orthopedic floor for further care. She was given Acef for antibiotic prophylaxis SULEMA stockings and SCD as well as Aspirin for DVT prophylaxis. By post operative day #2 the patient was tolerating PT and pain was well controlled on medications. Printed discharge instructions were given . Prescriptions for pain were also given. She was to be discharged home with home health. Continue the SULEMA stocking as well as the Aspirin for DVT prophylaxis. She is to continue physical therapy. She is to follow up in the office in 10-14 days or sooner if there are any concerns. Discharge Instructions Please refer to the electronic Patient Visit Report (Discharge Instructions) for additional information.
== END 2017-04-07 15:22 | disposition home health service (06) | DRG 470 ==
LOC: C.ACU 05:24 → C.3E 06:35 → ENRESERV 09:40
PROVIDERS: ADMIT Orthopaedic Surgery Sports Medicine; ATTEND Orthopaedic Surgery Sports Medicine
PROC: 0SRC0J9 Replacement of Right Knee Joint with Synthetic Substitute, Cemented, Open Approach (ICD-10-PCS; principal; 2017-04-05 07:00)
DX: M17.11 Unilateral primary osteoarthritis, right knee (principal); K50.90 Crohn's disease, unspecified, without complications; D62 Acute posthemorrhagic anemia; M25.461 Effusion, right knee; M21.161 Varus deformity, not elsewhere classified, right knee; J45.909 Unspecified asthma, uncomplicated; I10 Essential (primary) hypertension; E78.00 Pure hypercholesterolemia, unspecified; K21.9 Gastro-esophageal reflux disease without esophagitis; R73.03 Prediabetes; F41.9 Anxiety disorder, unspecified; F32.9 Major depressive disorder, single episode, unspecified; E66.9 Obesity, unspecified; Z68.31 Body mass index [BMI] 31.0-31.9, adult; Z79.899 Other long term (current) drug therapy

== ENCOUNTER → 2017-04-21 | Outpatient (CLI) | payer OTHER ==
[~2017-04-21] MED LIST changes: +ACET-24 PO; +ASPEC325 PO; +RXC5 PO
[2017-04-21 17:51] LABS: BLOOD UREA NITROGEN 21 mg/dl (7-18); BUN/CREATININE RATIO 21.2 (10-20); CALCIUM 9.8 mg/dl (8.5-10.1); CARBON DIOXIDE 31 mmol/L (21-32); CHLORIDE 104 mmol/L (98-107); CHOLESTEROL 206 mg/dl (0-200); CREATININE 0.99 mg/dl (0.60-1.20); GLUCOSE 98 mg/dl (70-99); POTASSIUM 3.9 mmol/L (3.5-5.1); SODIUM 140 mmol/L (136-145); TRIGLYCERIDES 322 mg/dl (0-150); VERY LOW DENSITY LIPOPROT CALC 64 mg/dl
[2017-04-21 17:54] LABS: HDL CHOLESTEROL 41 mg/dl; LDL CHOLESTEROL CALCULATED 101 mg/dl
[2017-04-22 06:32] LABS: ESTIMATED AVERAGE GLUCOSE 137 mg/dl; HA1C FLAG Normal (Normal)
== END | disposition home or self-care (01) ==
LOC: C.LABPVFM 11:07
PROVIDERS: ATTEND Nurse Practitioner
DX: I10 Essential (primary) hypertension (principal); E55.9 Vitamin D deficiency, unspecified; R73.01 Impaired fasting glucose; E78.5 Hyperlipidemia, unspecified

== ENCOUNTER → 2017-11-07 | Outpatient (CLI) | payer OTHER ==
[~2017-11-07] MED LIST changes: -FOLI1TAB7 PO; +FOLI1TAB8 PO
== END | disposition home or self-care (01) ==
LOC: C.MAMM 15:44
PROVIDERS: ATTEND Registered Nurse
DX: M85.851 Other specified disorders of bone density and structure, right thigh (principal)

== ENCOUNTER → 2017-11-10 | Outpatient (CLI) | payer OTHER ==
--- NOTE | 2017-11-10 14:09 | DIAGNOSTIC IMAGING REPORT ---
CHEST 2 VIEWS ROUTINE CLINICAL HISTORY: ACUTE ASTHMATIC BRONCHITIS dyspnea COMPARISON STUDY: 07/02/2016 FINDINGS: The bones soft tissues and hemidiaphragms are normal. The cardiomediastinal silhouette is normal. The lungs are clear. The pulmonary vasculature is normal. IMPRESSION: Negative chest. The above report was generated using voice recognition software. It may contain grammatical, syntax or spelling errors. Electronically signed by: Santos St M.D. 11/10/2017 2:08 PM Dictated Date/Time: 11/10/2017 2:07 PM
== END | disposition home or self-care (01) ==
LOC: C.LABPVFM 13:54
PROVIDERS: ATTEND Internal Medicine
DX: J45.909 Unspecified asthma, uncomplicated (principal)

== ENCOUNTER → 2017-11-14 | Outpatient (CLI) | payer OTHER ==
--- NOTE | 2017-11-14 09:11 | DIAGNOSTIC IMAGING REPORT ---
CT SCAN OF THE PARANASAL SINUSES CLINICAL HISTORY: Acute sinusitis. COMPARISON STUDY: CT scan of the paranasal sinuses dated 05/23/2009. TECHNIQUE: High-resolution CT scan of the paranasal sinuses is performed. Images are reviewed in the axial, sagittal, and coronal planes. IV contrast was not administered for this examination. A dose lowering technique was utilized adhering to the principles of ALARA. CT DOSE: 698.71 mGy.cm FINDINGS: Postoperative change: There is evidence of bilateral maxillary antrectomy with antrostomy formation and ethmoid sinus resection. Maxillary antra: Trace dependent mucosal thickening is seen on the right. Clear on the left. Ethmoid resection cavity: Clear. Sphenoid sinuses: Clear. Frontal sinuses: Trace mucosal thickening is seen of the left. Clear on the right. Ostiomeatal complexes: The maxillary antrostomies are widely patent bilaterally. Frontoethmoidal and sphenoethmoidal recesses: Patent bilaterally. Carotid arteries: The carotid arteries are covered and without septal attachments. Ethmoid roofs: There is asymmetric elevation of the left ethmoid roof as compared to the right. Nasal turbinates: Normal in appearance. Nasal septum: There is minimal leftward deviation of the bony nasal septum. Optic nerves: Covered. Orbits: The bony orbits are intact. Orbital contents are normal in appearance. Calvarium: The imaged calvarium is normal in appearance Mastoid air cells: Well pneumatized. Brain parenchyma: Partially visualized brain parenchyma is within normal limits. IMPRESSION: Postoperative change as above with no significant paranasal sinus disease. See discussion. Electronically signed by: Néstor Olivo M.D. 11/14/2017 9:10 AM Dictated Date/Time: 11/14/2017 9:05 AM
== END | disposition home or self-care (01) ==
LOC: C.CTS 08:54
PROVIDERS: ATTEND Internal Medicine Pulmonary Disease
DX: J01.90 Acute sinusitis, unspecified (principal)

== ENCOUNTER 2019-03-08 21:33 | Inpatient (IN) ==
[2019-03-08] MEDS ORDERED: SODIUM CHLORIDE 0.9% 1000ML 1,000 ML IV SCH (22:00)
[2019-03-08] MEDS ORDERED: ACETAMINOPHEN 1,000 MG/100 ML VIAL IV STA (22:35)
[2019-03-08 22:47] LABS: Basophils # (auto) 0.01 K/uL (0-0.2); Basophils % (auto) 0.1 %; Hematocrit (blood only) 44.3 % (37-47); Hemoglobin 15.4 g/dL (12.0-16.0); Immature Granulocytes # (auto) 0.04 K/uL (0.00-0.02); Immature Granulocytes % (auto) 0.3 %; Lymphocytes % (auto) 4.8 %; Mean Corpuscular Hgb Conc 34.8 g/dL (32-36); Mean Corpuscular Volume 88.2 fL (80-100); Mean Platelet Volume 11.6 fL (7.4-10.4); Monocytes # (auto) 1.55 K/uL (0.11-0.59); Monocytes % (auto) 10.7 %; Neutrophils # (auto) 12.24 K/uL (1.4-6.5); Neutrophils % (auto) 84.1 %; Platelet Count 160 K/uL (130-400); RDW Coefficient of Variation 14.6 % (11.5-14.5); RDW Standard Deviation 47.3 fL (36.4-46.3); Red Blood Count 5.02 M/uL (4.2-5.4); White Blood Count 14.54 K/uL (4.8-10.8)
--- NOTE | 2019-03-08 22:47 | XRay Report ---
XR chest 1V portable HISTORY: 68 years-old Female Sepsis acute sepsis COMPARISON: Chest radiographs 02/28/2019 TECHNIQUE: Portable AP view of the chest FINDINGS: Cardiomediastinal and hilar silhouettes are within normal limits. Interval development of alveolar op acities of the left upper lobe. No pneumothorax, pleural effusion or overt pulmonary edema. Degenerat esme changes of the shoulders and spine. IMPRESSION: Interval development of left upper lobe pneumonia. Follow-up after treatment course recom mended to document resolution. The above report was generated using voice recognition software. It may contain grammatical, syntax o r spelling errors. Electronically signed by: Dagoberto Lechuga M.D. 03/08/2019 10:46 PM
[2019-03-08] MEDS ORDERED: SODIUM CHLORIDE 0.9% 1000ML 1,000 ML IV ONE (22:54)
[2019-03-08] MEDS ORDERED: VANCOMYCIN CONSULT ACTIVE ONE (22:55)
[2019-03-08] MEDS ORDERED: VANCOMYCIN HCL 1,750 MG in SODIUM CHLORIDE 0.9% 500 ML IV ONE (22:55)
[2019-03-08] MEDS ORDERED: VANCOMYCIN CONSULT ACTIVE PRN (22:55)
[2019-03-08] MEDS ORDERED: LEVOFLOXACIN/D5W 750 MG/150 ML BAG IV STA (22:55)
[2019-03-08 22:56] LABS: Prothrombin Time 10.5 Seconds (9.0-12.0)
[2019-03-08 23:03] LABS: Alanine Aminotransferase 34 U/L (12-78); Albumin Level 3.6 gm/dl (3.4-5.0); Aspartate Aminotransferase 30 U/L (15-37); BUN Creatinine Ratio 15.8 (10-20); Blood Urea Nitrogen 35 mg/dl (7-18); Calcium 9.8 mg/dl (8.5-10.1); Carbon Dioxide 28 mmol/L (21-32); Chloride 94 mmol/L (98-107); Creatinine Clr Calc Pharmacy 26.1 ml/min; Est GFR (African American) 25.9; Est GFR (Non-African American) 22.3; Glucose 117 mg/dl (70-99); Magnesium 2.7 mg/dl (1.8-2.4); Potassium 3.6 mmol/L (3.5-5.1); Sodium 133 mmol/L (136-145)
[2019-03-08] MEDS ORDERED: AZITHROMYCIN 250 MG TAB PO ONE (23:05)
[2019-03-08 23:08] LABS: Albumin Globulin Ratio 0.7 (0.9-2); Alkaline Phosphatase 68 U/L (45-117); Bilirubin,Total 0.7 mg/dl (0.2-1); Globulin 5.2 gm/dl (2.5-4.0); NT Pro B Type Natriuretic Pept 256 pg/ml (0-900); Total Protein 8.8 gm/dl (6.4-8.2); Troponin I < 0.015 ng/ml (0-0.045)
[2019-03-08 23:57] LABS: Appearance Urine Cloudy (Clear); Bacteria Urine Automated Negative (Negative); Bilirubin Urine Negative (Negative); Blood Urine 3+ (Negative); Color Urine Yellow; Epithelial Cell Urine Auto >30 /lpf (0-5); Glucose Urine UA Negative (Negative); Ketones Urine Negative (Negative); Leukocyte Esterase Urine Negative (Negative); Nitrite Urine Negative (Negative); Protein Urine 2+ (Negative); Specific Gravity Urine 1.023 (1.000-1.030); Urobilinogen Urine Negative (Negative)
[2019-03-09] MEDS ORDERED: PROCHLORPERAZINE 5 MG in SYRINGE 4 ML IV PRN (00:08)
[2019-03-09] MEDS ORDERED: SODIUM CHLORIDE 0.9% 1000ML 1,000 ML IV ONE (00:10)
[2019-03-09] MEDS ORDERED: PROCHLORPERAZINE 5 MG/ML 2 ML VIAL ONE (00:13)
--- NOTE | 2019-03-09 01:07 | Emergency Department Note ---
Entered by Brittany Agrawal acting as a scribe for rAianaImanitaisha Trujillo DO History of Present Illness General Chief complaint: Fever Stated complaint: 103 TEMP - COUGH - VOMITING - DIARRHEA Time Seen by Provider: 03/08/19 21:45 Source: patient History of Present Illness Onset (ago): day(s) 1 Pain Consistency: + other (persistent) Maximum Pain Intensity: 6 Quality: + other (fever) Associated symptoms: + confusion, + diaphoresis, + fever/chills, + headaches, + nausea/vomiting and + other (positive body aches; negative blood in vomit; positive loose stools; negative blood in stool) Treatments prior to arrival: other (Tylenol; Ibuprofen) The patient is a 68 year old female who presents to the Emergency Room with complaints of a persistent fever that began yesterday. The patient's sister states that the patient's fever was 103 today. The patient states that she has had chills and sweating during this time. She reports nausea and vomiting during this time, and denies blood in her vomit. The patient states that she has had body aches and a headache during this time. Per the patient's sister, the patient appeared confused today. The patient reports loose stools during this time, and denies blood in her stool. The patient states that she has had intermittent bronchitis for the past 15 years, and states that an episode began several days ago. The patient states that she was put on Tylenol with codeine, a prednisone taper, and 500 mg of cefuroxime. She reports that she is regularly taking Humira for Crohn's disease. The patient denies being around anyone sick and new foods. The patient states that she took Tylenol and Ibuprofen for her symptoms today. Home Medications Home Medications Medication Instructions Recorded Confirmed Type Humira Pen 40 mg SUBCUT DIRECTED 06/14/18 03/08/19 History cetirizine [Zyrtec] 10 mg PO QPM 06/14/18 03/08/19 History cholecalciferol (vitamin D3) 2,000 unit PO QPM 06/14/18 03/08/19 History [Vitamin D3] folic acid 1 mg PO QPM 06/14/18 03/08/19 History lisinopril 20 mg PO QPM 06/14/18 03/08/19 History magnesium oxide 250 mg PO BID 06/14/18 03/08/19 History multivitamin 1 tab PO QPM 06/14/18 03/08/19 History venlafaxine 300 mg PO QPM 06/14/18 03/08/19 History triamterene 37.5 1 cap PO QPM #30 cap 02/14/19 03/08/19 History mg-hydrochlorothiazide 25 mg capsule atorvastatin 20 mg PO QPM 03/08/19 03/08/19 History calcium carbonate [Tums Ultra] 1,000 mg PO BID 03/08/19 03/08/19 History cefuroxime axetil 500 mg PO BID 03/08/19 03/08/19 History montelukast 10 mg PO QPM 03/08/19 03/08/19 History potassium 99 mg PO QPM 03/08/19 03/08/19 History prednisone See Rx Instructions .ROUTE .COMPLEX 03/08/19 03/08/19 History promethazine-codeine 5 - 10 ml PO .Q4-6HRS PRN 03/08/19 03/08/19 History Allergies Allergy/AdvReac Type Severity Reaction Status Date / Time cat dander Allergy Unknown HAY FEVER Verified 03/08/19 22:16 fluticasone Allergy Unknown INFLAMED Verified 03/08/19 22:16 AIRWAYS ragweed pollen Allergy Unknown HAY FEVER Verified 03/08/19 22:16 salmeterol Allergy Unknown INFLAMED Verified 03/08/19 22:16 AIRWAYS baclofen AdvReac Unknown DIZZY, Verified 03/08/19 22:16 NAUSEA, SWEATS AND NIGHTMARES butalbital AdvReac Unknown SWEATS AND Verified 03/08/19 22:16 NIGHTMARES clarithromycin AdvReac Unknown Nausea, Verified 03/08/19 22:16 diarrhea Past Med/Surg History Medical History Vitamin D deficiency (Acute) Right knee DJD (Acute) Migraine headache (Acute) Impaired fasting glucose (Acute) Hypertension (Acute) Hyperlipidemia (Acute) GERD without esophagitis (Acute) Elevated triglycerides with high cholesterol (Acute) Depression (Acute) Acute asthmatic bronchitis (Acute) Asthma inhaler prn Crohns disease GERD (gastroesophageal reflux disease) Hyperlipidemia Hypertension Insomnia Migraine Osteoarthritis Reactive airway disease Surgical History History of appendectomy History of colonoscopy History of endoscopic sinus surgery nasal polyp removed History of esophagogastroduodenoscopy (EGD) History of tonsillectomy and adenoidectomy History of tooth extraction wisdom teeth History of total right knee replacement (TKR) Family History Father Family history of diabetes mellitus Grandmother Family hx of colon cancer maternal Social History Preferred Language: Estonian Communication Ability: Effective Beliefs That Will Affect Care: None Current Living Situation: Spouse Feels Safe at Home: Yes Smoking Status: Never smoker Second Hand Exposure: No Hx Alcohol Use: No Hx Substance Use: No Review of Systems See HPI for pertinent positives & negatives. and A total of 10 systems reviewed and were otherwise negative Physical Exam Vital Signs Vital Signs - 24 hr 03/08/19 21:35 03/08/19 22:20 03/08/19 22:28 Temperature 39.5 C H Temperature Source Oral Sepsis Recent Fever Within 48 Hours No Sepsis New/Unexplained Change in Mental Status No Sepsis Action Taken by Nursing No Action Required Pulse Rate 114 H 100 H 103 H Pulse Rate from SpO2 Sensor Respiratory Rate 18 Blood Pressure 111/70 Blood Pressure Mean 83 Pulse Oximetry 96 97 Oxygen Delivery Method Room Air 03/08/19 22:30 03/08/19 22:34 03/08/19 22:45 Temperature Temperature Source Sepsis Recent Fever Within 48 Hours Sepsis New/Unexplained Change in Mental Status Sepsis Action Taken by Nursing Pulse Rate 104 H 95 H 86 Pulse Rate from SpO2 Sensor 95 H 86 Respiratory Rate 18 Blood Pressure 116/77 127/69 Blood Pressure Mean 90 88 Pulse Oximetry 93 91 Oxygen Delivery Method 03/08/19 23:00 03/08/19 23:01 03/08/19 23:15 Temperature Temperature Source Sepsis Recent Fever Within 48 Hours Sepsis New/Unexplained Change in Mental Status Sepsis Action Taken by Nursing Pulse Rate 87 78 67 Pulse Rate from SpO2 Sensor 87 86 84 Respiratory Rate 18 Blood Pressure 129/71 Blood Pressure Mean 90 Pulse Oximetry 95 96 93 Oxygen Delivery Method 03/08/19 23:16 03/08/19 23:30 03/08/19 23:31 Temperature Temperature Source Sepsis Recent Fever Within 48 Hours Sepsis New/Unexplained Change in Mental Status Sepsis Action Taken by Nursing Pulse Rate 76 81 82 Pulse Rate from SpO2 Sensor 83 81 82 Respiratory Rate 20 19 19 Blood Pressure 131/70 132/71 Blood Pressure Mean 90 91 Pulse Oximetry 93 94 93 Oxygen Delivery Method 03/08/19 23:32 03/08/19 23:45 03/09/19 00:00 Temperature 37.2 C Temperature Source Oral Sepsis Recent Fever Within 48 Hours Sepsis New/Unexplained Change in Mental Status Sepsis Action Taken by Nursing Pulse Rate 83 83 80 Pulse Rate from SpO2 Sensor 83 Respiratory Rate Blood Pressure 129/76 Blood Pressure Mean 93 Pulse Oximetry 93 Oxygen Delivery Method 03/09/19 00:01 03/09/19 00:02 03/09/19 00:15 Temperature Temperature Source Sepsis Recent Fever Within 48 Hours Sepsis New/Unexplained Change in Mental Status Sepsis Action Taken by Nursing Pulse Rate 79 80 79 Pulse Rate from SpO2 Sensor Respiratory Rate 21 21 Blood Pressure 132/76 124/81 Blood Pressure Mean 94 95 Pulse Oximetry Oxygen Delivery Method 03/09/19 00:30 03/09/19 00:45 03/09/19 00:46 Temperature Temperature Source Sepsis Recent Fever Within 48 Hours Sepsis New/Unexplained Change in Mental Status Sepsis Action Taken by Nursing Pulse Rate 82 81 73 Pulse Rate from SpO2 Sensor Respiratory Rate 19 16 17 Blood Pressure 128/77 128/79 Blood Pressure Mean 94 95 Pulse Oximetry Oxygen Delivery Method GENERAL: alert, ill-appearing, well nourished, no distress, non-toxic. Frequent cough during exam. EYE EXAM: normal conjunctiva, PERRL and EOM's grossly intact OROPHARYNX: no exudate, no erythema, lips, buccal mucosa, and tongue normal and mucous membranes are dry NECK: supple, no nuchal rigidity, no adenopathy, non-tender LUNGS: No wheezes, rhonchi, rales. Normal chest wall mechanics HEART: no murmurs, S1 normal and S2 normal ABDOMEN: abdomen soft, non-tender, normo-active bowel sounds, no masses, no rebound or guarding. BACK: Back is symmetrical on inspection and there is no deformity, no midline tenderness, no CVA tenderness. SKIN: no rashes and no bruising, no petechiae, no erythema nodosum UPPER EXTREMITIES: upper extremities are grossly normal. FROM, nml pulses b/l. LOWER EXTREMITIES: No pitting edema. FROM, nml pulses b/l. NEURO EXAM: Normal sensorium, cranial nerves II-XII grossly intact, normal speech, no gross weakness of arms, no gross weakness of legs. Course 2149: Past medical records reviewed. The patient was evaluated in room A12B. A complete history and physical exam was performed. 2256: I updated the patient on all results. 5: [facility] further evaluation. Consultations Consultation #1: I [facility] for further evaluation. Administered Medications Albuterol (Ventolin Hfa) 2 puffs INH Q6H KULDIP Stop: 04/08/19 11:59 Last Admin: 03/09/19 23:32 Dose: 2 puffs Documented by: [id number] Admin: 03/09/19 22:43 Dose: Not Given Documented by: [id number] Admin: 03/09/19 13:13 Dose: 2 puffs Documented by: [id number] Atorvastatin Calcium (Lipitor) 20 mg PO QPM KULDIP Stop: 04/08/19 20:59 Last Admin: 03/09/19 21:14 Dose: 20 mg Documented by: [id number] Benzonatate (Tessalon Perle) 100 mg PO TID KULDIP Stop: 04/08/19 13:59 Last Admin: 03/09/19 21:12 Dose: 100 mg Documented by: [id number] Admin: 03/09/19 13:12 Dose: 100 mg Documented by: [id number] Cetirizine HCl (Zyrtec) 10 mg PO QPM KULDIP Stop: 04/08/19 20:59 Last Admin: 03/09/19 21:13 Dose: 10 mg Documented by: [id number] Enoxaparin Sodium (Lovenox) 30 mg SQ QAM KULDIP Stop: 04/08/19 19:44 Last Admin: 03/09/19 21:10 Dose: 30 mg Documented by: [id number] Folic Acid (Folvite) 1 mg PO QPM KULDIP Stop: 04/08/19 20:59 Last Admin: 03/09/19 21:12 Dose: 1 mg Documented by: [id number] Guaifenesin (Mucinex) 1,200 mg PO Q12 KULDIP Stop: 04/08/19 11:19 Last Admin: 03/09/19 21:12 Dose: 1,200 mg Documented by: [id number] Admin: 03/09/19 13:12 Dose: 1,200 mg Documented by: [id number] Piperacillin Sod/Tazobactam (Sod 3.375 gm/ Dextrose) 115 mls @ 28.75 mls/hr IV Q8H [facility]; Protocol Stop: 03/16/19 07:59 Last Admin: 03/09/19 23:32 Dose: 28.8 mls/hr Documented by: [id number] Infusion: 03/09/19 19:43 Dose: 0 mls/hr Documented by: [id number] Admin: 03/09/19 15:17 Dose: 28.8 mls/hr Documented by: [id number] Infusion: 03/09/19 12:45 Dose: 0 mls/hr Documented by: [id number] Admin: 03/09/19 08:36 Dose: 28.8 mls/hr Documented by: [id number] Azithromycin 250 mg/ Dextrose 252.5 mls @ 125 mls/hr IV Q24H [facility] Stop: 03/15/19 01:02 Last Infusion: 03/10/19 00:50 Dose: 0 mls/hr Documented by: [id number] Admin: 03/09/19 22:46 Dose: 125 mls/hr Documented by: [id number] Lactobacillus Acidophilus (Floranex) 4 tab PO TIDM [facility] Stop: 04/08/19 11:59 Last Admin: 03/09/19 17:15 Dose: 4 tab Documented by: [id number] Admin: 03/09/19 13:12 Dose: 4 tab Documented by: [id number] Magnesium Oxide (Mag-Ox) 400 mg PO BID [facility] Stop: 04/08/19 08:59 Last Admin: 03/09/19 21:14 Dose: 400 mg Documented by: [id number] Admin: 03/09/19 08:37 Dose: 400 mg Documented by: [id number] Montelukast Sodium (Singulair) 10 mg PO QPM [facility] Stop: 04/08/19 20:59 Last Admin: 03/09/19 21:14 Dose: 10 mg Documented by: [id number] Nystatin (Mycostatin) 5 ml PO QID [facility] Stop: 03/19/19 12:59 Last Admin: 03/09/19 21:14 Dose: 5 ml Documented by: [id number] Admin: 03/09/19 17:16 Dose: 5 ml Documented by: [id number] Admin: 03/09/19 13:12 Dose: 5 ml Documented by: [id number] Prednisone (Prednisone) 20 mg PO DAILY KULDIP; Taper Stop: 03/17/19 01:59 Last Admin: 03/09/19 08:37 Dose: 20 mg Documented by: [id number] Venlafaxine HCl (Effexor Extended Release) 300 mg PO QPM KULDIP Stop: 04/08/19 20:59 Last Admin: 03/09/19 21:13 Dose: 300 mg Documented by: [id number] Discontinued Medications Azithromycin (Zithromax) 500 mg PO NOW ONE Stop: 03/08/19 23:06 Last Admin: 03/08/19 23:12 Dose: 500 mg Documented by: [id number] Sodium Chloride (Nss 1000ml) 1,000 mls @ 999 mls/hr IV .Q1H1M KULDIP Stop: 03/08/19 23:00 Last Infusion: 03/08/19 23:48 Dose: 0 mls/hr Documented by: [id number] Admin: 03/08/19 22:41 Dose: 999 mls/hr Documented by: [id number] Acetaminophen (Ofirmev) 1,000 mg in 100 mls @ 400 mls/hr IV NOW STA Stop: 03/08/19 22:49 Last Infusion: 03/08/19 23:01 Dose: 0 mls/hr Documented by: [id number] Admin: 03/08/19 22:41 Dose: 400 mls/hr Documented by: [id number] Sodium Chloride (Nss 1000ml) 1,000 mls @ 999 mls/hr IV .Q1H1M ONE Stop: 03/08/19 23:54 Last Infusion: 03/09/19 00:08 Dose: 0 mls/hr Documented by: [id number] Admin: 03/08/19 23:08 Dose: 999 mls/hr Documented by: [id number] Vancomycin HCl 1,750 mg/ (Sodium Chloride) 535 mls @ 200 mls/hr IV NOW ONE; Protocol Stop: 03/09/19 01:35 Last Infusion: 03/09/19 02:23 Dose: 0 mls/hr Documented by: [id number] Admin: 03/08/19 23:42 Dose: 200 mls/hr Documented by: [id number] Levofloxacin/Dextrose (Levaquin/D5w) 750 mg in 150 mls @ 100 mls/hr IV NOW STA Stop: 03/09/19 00:24 Last Infusion: 03/09/19 00:43 Dose: 0 mls/hr Documented by: [id number] Admin: 03/08/19 23:08 Dose: 100 mls/hr Documented by: [id number] Prochlorperazine 5 mg/ Syringe 5 mls @ 5 mls/min IV UD PRN PRN Reason: Nausea And Vomiting Stop: 04/08/19 00:07 Last Admin: 03/09/19 00:16 Dose: 5 mls/min Documented by: [id number] Sodium Chloride (Nss 1000ml) 1,000 mls @ 999 mls/hr IV .Q1H1M ONE Stop: 03/09/19 01:10 Last Infusion: 03/09/19 01:24 Dose: 0 mls/hr Documented by: [id number] Admin: 03/09/19 00:16 Dose: 999 mls/hr Documented by: [id number] Sodium Chloride (Nss 1000ml) 1,000 mls @ 80 mls/hr IV .[id number] KULDIP Stop: 03/09/19 14:52 Last Infusion: 03/09/19 15:19 Dose: 0 mls/hr Documented by: [id number] Admin: 03/09/19 02:45 Dose: 80 mls/hr Documented by: [id number] Piperacillin Sod/Tazobactam (Sod 3.375 gm/ Dextrose) 115 mls @ 230 mls/hr IV ONE ONE; Protocol Stop: 03/09/19 03:14 Last Infusion: 03/09/19 03:24 Dose: 0 mls/hr Documented by: [id number] Admin: 03/09/19 02:54 Dose: 230 mls/hr Documented by: [id number] Prochlorperazine (Compazine) Confirm Administered Dose 10 mg .ROUTE .STK-MED ONE Stop: 03/09/19 00:14 Last Admin: 03/09/19 00:16 Dose: Not Given Documented by: [id number] Medical Decision Making Differential Diagnosis Differential diagnosis: Etiologies such as gastroenteritis, food borne illness, infections, appendicitis, diverticulitis, inflammatory bowel disease, obstruction, GI bleed, biliary pathology, as well as others were entertained. Medical Records Attestation: I reviewed the patient's medical records. Home Medications Current Medication List: was personally reviewed by me Laboratory Data Attestation: I reviewed the patient's lab results. Result diagrams: 03/08/19 22:27 03/09/19 05:43 Lab Results 03/08/19 03/08/19 03/08/19 Range/Units 22:27 22:27 22:27 WBC 14.54 H (4.8-10.8) K/uL RBC 5.02 (4.2-5.4) M/uL Hgb 15.4 (12.0-16.0) g/dL Hct 44.3 (37-47) % MCV 88.2 (80-100) fL MCH 30.7 (25-34) pg MCHC 34.8 (32-36) g/dL RDW Std Deviation 47.3 H (36.4-46.3) fL RDW Coeff of Sherwin 14.6 H (11.5-14.5) % Plt Count 160 (130-400) K/uL MPV 11.6 H (7.4-10.4) fL Immature Gran % (Auto) 0.3 % Neut % (Auto) 84.1 % Lymph % (Auto) 4.8 % Sioux % (Auto) 10.7 % Eos % (Auto) 0.0 % Baso % (Auto) 0.1 % Immature Gran # (Auto) 0.04 H (0.00-0.02) K/uL Neut # (Auto) 12.24 H (1.4-6.5) K/uL Lymph # (Auto) 0.70 L (1.2-3.4) K/uL Sioux # (Auto) 1.55 H (0.11-0.59) K/uL Eos # (Auto) 0.00 (0-0.5) K/uL Baso # (Auto) 0.01 (0-0.2) K/uL PT 10.5 (9.0-12.0) Seconds INR 1.0 (0.9-1.1) Sodium 133 L (136-145) mmol/L Potassium 3.6 (3.5-5.1) mmol/L Chloride 94 L (98-107) mmol/L Carbon Dioxide 28 (21-32) mmol/L Anion Gap 11.0 (3-11) BUN 35 H (7-18) mg/dl Creatinine 2.21 H (0.6-1.2) mg/dl Est Cr Clr Drug Dosing 26.1 ml/min Est GFR ( Amer) 25.9 Est GFR (Non-Af Amer) 22.3 BUN/Creatinine Ratio 15.8 (10-20) Glucose 117 H (70-99) mg/dl POC Lactic Acid Arnoldo (0.90-1.70) mmol/L Calcium 9.8 (8.5-10.1) mg/dl Magnesium 2.7 H (1.8-2.4) mg/dl Total Bilirubin 0.7 (0.2-1) mg/dl AST 30 (15-37) U/L ALT 34 (12-78) U/L Alkaline Phosphatase 68 (45-117) U/L Troponin I < 0.015 (0-0.045) ng/ml NT-Pro-B Natriuret Pep 256 (0-900) pg/ml Total Protein 8.8 H (6.4-8.2) gm/dl Albumin 3.6 (3.4-5.0) gm/dl Globulin 5.2 H (2.5-4.0) gm/dl Albumin/Globulin Ratio 0.7 L (0.9-2) Procalcitonin (0-0.5) ng/ml Urine Color Urine Appearance (Clear) Urine pH (4.5-7.5) Ur Specific [place] (1.000-1.030) Urine Protein (Negative) Urine Glucose (UA) (Negative) Urine Ketones (Negative) Urine Blood (Negative) Urine Nitrite (Negative) Urine Bilirubin (Negative) Urine Urobilinogen (Negative) Ur Leukocyte Esterase (Negative) Urine WBC (Auto) (0-5) /hpf Urine RBC (Auto) (0-4) /hpf U Hyaline Cast (Auto) (0-5) /lpf U Epithel Cells (Auto) (0-5) /lpf Urine Bacteria (Auto) (Negative) Granular Casts (0) /lpf Urine Yeast 03/08/19 03/08/19 03/08/19 Range/Units 22:27 22:40 23:39 WBC (4.8-10.8) K/uL RBC (4.2-5.4) M/uL Hgb (12.0-16.0) g/dL Hct (37-47) % MCV (80-100) fL MCH (25-34) pg MCHC (32-36) g/dL RDW Std Deviation (36.4-46.3) fL RDW Coeff of Sherwin (11.5-14.5) % Plt Count (130-400) K/uL MPV (7.4-10.4) fL Immature Gran % (Auto) % Neut % (Auto) % Lymph % (Auto) % [place]oux % (Auto) % Eos % (Auto) % Baso % (Auto) % Immature Gran # (Auto) (0.00-0.02) K/uL Neut # (Auto) (1.4-6.5) K/uL Lymph # (Auto) (1.2-3.4) K/uL Sioux # (Auto) (0.11-0.59) K/uL Eos # (Auto) (0-0.5) K/uL Baso # (Auto) (0-0.2) K/uL PT (9.0-12.0) Seconds INR (0.9-1.1) Sodium (136-145) mmol/L Potassium (3.5-5.1) mmol/L Chloride (98-107) mmol/L Carbon Dioxide (21-32) mmol/L Anion Gap (3-11) BUN (7-18) mg/dl Creatinine (0.6-1.2) mg/dl Est Cr Clr Drug Dosing ml/min Est GFR ( Amer) Est GFR (Non-Af Amer) BUN/Creatinine Ratio (10-20) Glucose (70-99) mg/dl POC Lactic Acid Arnoldo 2.35 H (0.90-1.70) mmol/L Calcium (8.5-10.1) mg/dl Magnesium (1.8-2.4) mg/dl Total Bilirubin (0.2-1) mg/dl AST (15-37) U/L ALT (12-78) U/L Alkaline Phosphatase (45-117) U/L Troponin I (0-0.045) ng/ml NT-Pro-B Natriuret Pep (0-900) pg/ml Total Protein (6.4-8.2) gm/dl Albumin (3.4-5.0) gm/dl Globulin (2.5-4.0) gm/dl Albumin/Globulin Ratio (0.9-2) Procalcitonin 0.60 H (0-0.5) ng/ml Urine Color Yellow Urine Appearance Cloudy A (Clear) Urine pH 5.0 (4.5-7.5) Ur Specific [place] 1.023 (1.000-1.030) Urine Protein 2+ H (Negative) Urine Glucose (UA) Negative (Negative) Urine Ketones Negative (Negative) Urine Blood 3+ H (Negative) Urine Nitrite Negative (Negative) Urine Bilirubin Negative (Negative) Urine Urobilinogen Negative (Negative) Ur Leukocyte Esterase Negative (Negative) Urine WBC (Auto) 5-10 H (0-5) /hpf Urine RBC (Auto) 10-30 H (0-4) /hpf U Hyaline Cast (Auto) 1-5 (0-5) /lpf U Epithel Cells (Auto) >30 H (0-5) /lpf Urine Bacteria (Auto) Negative (Negative) Granular Casts 1-5 H (0) /lpf Urine Yeast Not Reportable Imaging Data Radiologist's Impression: Radiology results as stated below per my review and the radiologist's interpretation: XR chest 1V portable HISTORY: 68 years-old Female Sepsis acute sepsis COMPARISON: Chest radiographs 02/28/2019 TECHNIQUE: Portable AP view of the chest FINDINGS: Cardiomediastinal and hilar silhouettes are within normal limits. Interval development of alveolar opacities of the left upper lobe. No pneumothorax, pleural effusion or overt pulmonary edema. Degenerative changes of the shoulders and spine. IMPRESSION: Interval development of left upper lobe pneumonia. Follow-up after treatment course recommended to document resolution. The above report was generated using voice recognition software. It may contain grammatical, syntax or spelling errors. Electronically signed by: Dagoberto Lechuga M.D. 03/08/2019 10:46 PM ECG Data Attestation: I personally reviewed and interpreted this ECG as follows: Indication: vomiting Rate (beats per minute): 97 Rhythm: sinus rhythm Findings: + other (normal axis; normal intervals ); no acute ischemic change and no ectopy Blood Pressure Blood Pressure Findings: Normal blood pressure MDM Narrative Patient with concerning story for possible evolving sepsis were failed outpatient treatment of her recent bronchitis with antibiotics and steroids. Increased concern due to patient's mild immunocompromise status due to use of Humira for her Crohn's disease as well as recent steroids. No recent travel or sick contacts. Patient with a long-standing history of recurrent episodes of bronchitis that she does follow with pulmonology for. Patient not overtly hypoxic here, however has been febrile with poor p.o. intake, and does appear dehydrated. IV started, labs drawn and sent including cultures. Patient's [id number] lactic and procalcitonin were very slightly elevated. No evidence of septic shock. Patient hemodynamically stable throughout. Patient's chest x- ray revealed what now looks like a new pneumonia. Given recent outpatient treatment and possible immune compromise status, patient started on IV antibiotics. Patient made aware of all results. Despite nausea vomiting and looser stools, I do not suspect occult GI infection. Likely her GI symptoms were secondary to use of the antibiotics to treat her respiratory infection. All results were discussed with the patient at bedside. She did appear markedly improved with IV fluids. Case discussed with hospitalist for additional management and evaluation. Impression & Plan Pneumonia, Failure of outpatient treatment, Dehydration, Vomiting, Acute kidney injury Discharge Plan Visit Data *Final* Discharge Date/Time: 03/09/19 02:00 Chief Complaint: Fever Stated Complaint: 103 TEMP - COUGH - VOMITING - DIARRHEA ED Provider: Imani Lane Discharge Problem: Pneumonia, Failure of outpatient treatment, Dehydration, Vomiting, Acute kidney injury Patient Disposition: Admitted As Inpatient Condition: Good Discharge Instructions Interventions: ED Discharge Assessment Last Done: 03/09/19 02:00 The scribe's documentation has been prepared under my direction and personally reviewed by me in its entirety. I confirm that the note above accurately reflects all work, treatment, procedures, and medical decision making performed by me.
--- NOTE | 2019-03-09 01:42 | History & Physical Report ---
Date of Service March 09, 2019 Assessment & Plan (1) Pneumonia: SOUMYA PNA in immunocompromised host. Failed outpatient treatment for bronchitis. Patient febrile and tachycardic on arrival, elevated WBC in setting of steroid use as well. New SOUMYA infiltrate identified on CXR. Patient appears much improved since arrival to the ER. No respiratory distress, adequate saturation on room air, hemodynamically stable -Admit to medical floor -Follow blood culture results -Sputum culture -Will cover broadly with Vancomycin/Zosyn and Azithromycin for now -Albuterol PRN -Continue codeine cough suppressant Will continue patient's steroid taper to completion. Started on 02/28. Taper written as Prednisone 10mg - start 4 pills daily x 2 days and decrease by 1/2 pill every 2 days until finished. She should be on day one of 2 tablets. Present on Admission?: Yes (2) Failure of outpatient treatment: As above. Broaden coverage. Follow cultures. Present on Admission?: Yes (3) Dehydration: Patient appears clinically dry on physical exam, received 3L NSS in ER. Hemodynamically stable, adequate UOP -Encourage PO intake -NSS at 80mL/hr x 1 liter -Repeat chemistry in AM Present on Admission?: Yes (4) Vomiting: No vomiting since arrival. Nausea well controlled at present -Zofran PRN Present on Admission?: Yes (5) Acute kidney injury: Patient with elevated BUN and Cr, 35 and 2.21 respectively. Increased from 17 and 1.09 in September 2018. Adequate UOP, low Na and Cl on chemistry otherwise within normal limits. Administered 3L NSS in ER. MARKOS most likely secondary to prerenal azotemia in setting of acute illness, GI losses -Continue IVF -Renal dosing where needed -Avoid nephrotoxic agents -Hold Lisinopril and Triamterene/HCTZ for now -Monitor BUN, Cr, electroltyes and UOP Present on Admission?: Yes (6) Hypertension: Blood pressure stable at present -Holding Lisinopril and Triamterene/HCTZ in setting of MARKOS -Monitor BP Present on Admission?: Yes (7) Hyperlipidemia: Chronic. Stable -Continue Atorvastatin Present on Admission?: Yes (8) GERD without esophagitis: Chronic. Stable and asymptomatic -Continue Tums Present on Admission?: Yes (9) Depression: Chronic. Stable -Continue Venlafaxine Present on Admission?: Yes (10) Crohn's disease: Chronic. Stable -Continue Humira as directed -Continue Folic Acid (11) Asthma: Chronic. No wheezing at present. No respiratory distress. -Albuterol PRN -Continue Zyrtec and Singulair History of Present Illness Chief Complaint: PNA Primary Care Provider: MATTY Bowen Amanda Stanley is a pleasant 68yo C female with history of Crohn's disease on Humira, Asthma, frequent bronchitis. She follows with Dr. Luis and was seen recently on 28 February with complaint of persistent cough, headache and ear pain. She was prescribed prednisone taper x 16 days and Cefuroxime 500mg po BID x 10 days. She was taking her medications as prescribed. Overall not improving. Yesterday she developed worsening headache, fever to 102.7, chills, nausea with 5-6 episodes of NB/NB vomiting as well as 5-6 episodes of loose stool. She feels that her cough has been improving. Patient denies chest pain, palpitaitons, abdominal pain, dysuria, rash. She denies sick contacts or recent travel. Patient states she feels much improved. No additional complaints at this time On arrival to the ER she was found to be febrile at 39.3, tachycardic at 114bpm, blood pressure stable, RR of 21 saturating 93% on room air. CXR with new SOUMYA infiltrate suggestive of PNA. ER course: NSS x 3 ltiers, Vancomycin 1750mg IV, Phenergan, Levofloxacin 750mg, Azithromycin, Acetaminophen Allergies Allergy/AdvReac Type Severity Reaction Status Date / Time cat dander Allergy Unknown HAY FEVER Verified 03/08/19 22:16 fluticasone Allergy Unknown INFLAMED Verified 03/08/19 22:16 AIRWAYS ragweed pollen Allergy Unknown HAY FEVER Verified 03/08/19 22:16 salmeterol Allergy Unknown INFLAMED Verified 03/08/19 22:16 AIRWAYS baclofen AdvReac Unknown DIZZY, Verified 03/08/19 22:16 NAUSEA, SWEATS AND NIGHTMARES butalbital AdvReac Unknown SWEATS AND Verified 03/08/19 22:16 NIGHTMARES clarithromycin AdvReac Unknown Nausea, Verified 03/08/19 22:16 diarrhea Home Medications Home Medications Medication Instructions Recorded Confirmed Type Humira Pen 40 mg SUBCUT DIRECTED 06/14/18 03/08/19 History cetirizine [Zyrtec] 10 mg PO QPM 06/14/18 03/08/19 History cholecalciferol (vitamin D3) 2,000 unit PO QPM 06/14/18 03/08/19 History [Vitamin D3] folic acid 1 mg PO QPM 06/14/18 03/08/19 History lisinopril 20 mg PO QPM 06/14/18 03/08/19 History magnesium oxide 250 mg PO BID 06/14/18 03/08/19 History multivitamin 1 tab PO QPM 06/14/18 03/08/19 History venlafaxine 300 mg PO QPM 06/14/18 03/08/19 History triamterene 37.5 1 cap PO QPM #30 cap 02/14/19 03/08/19 History mg-hydrochlorothiazide 25 mg capsule atorvastatin 20 mg PO QPM 03/08/19 03/08/19 History calcium carbonate [Tums Ultra] 1,000 mg PO BID 03/08/19 03/08/19 History cefuroxime axetil 500 mg PO BID 03/08/19 03/08/19 History montelukast 10 mg PO QPM 03/08/19 03/08/19 History potassium 99 mg PO QPM 03/08/19 03/08/19 History prednisone See Rx Instructions .ROUTE .COMPLEX 03/08/19 03/08/19 History promethazine-codeine 5 - 10 ml PO .Q4-6HRS PRN 03/08/19 03/08/19 History Past Med/Surg History Medical History Vitamin D deficiency (Acute) Right knee DJD (Acute) Migraine headache (Acute) Impaired fasting glucose (Acute) Hypertension (Acute) Hyperlipidemia (Acute) GERD without esophagitis (Acute) Elevated triglycerides with high cholesterol (Acute) Depression (Acute) Acute asthmatic bronchitis (Acute) Asthma inhaler prn Crohns disease GERD (gastroesophageal reflux disease) Hyperlipidemia Hypertension Insomnia Migraine Osteoarthritis Reactive airway disease Surgical History History of appendectomy History of colonoscopy History of endoscopic sinus surgery nasal polyp removed History of esophagogastroduodenoscopy (EGD) History of tonsillectomy and adenoidectomy History of tooth extraction wisdom teeth History of total right knee replacement (TKR) Family History Father Family history of diabetes mellitus Grandmother Family hx of colon cancer maternal Social History Preferred Language: Cambodian Communication Ability: Effective Beliefs That Will Affect Care: None Current Living Situation: Spouse Feels Safe at Home: Yes Smoking Status: Never smoker Second Hand Exposure: Yes (parents smoked) Hx Alcohol Use: No Hx Substance Use: No Review of Systems Review of Systems: All systems reviewed & are unremarkable except as noted in HPI & below Physical Exam Physical Exam: General: patient resting comfortably, NAD, non-toxic in appearance, AA&O x 4 Skin: warm, dry, intact, no rashes or lesions HEENT: NC/AT, PERRL, EOMI, anicteric sclera, conjunctiva without injection, external ear normal to inspection and nontender, nares patent, Dry mucus membranes, dentition intact, no oropharyngeal lesions, neck supple, trachea midline, no LAD, no thyromegaly, no JVD Heart: +S1/S2, regular, no m/r/g Lungs: equal air entry bilaterally, no rales/rhonchi/wheezes, +dry cough Abd: +BS, soft, NT/ND, no masses/organomegaly/ascites Ext: warm, 2+ pulses in UE/LE bilaterally, no clubbing/cyanosis or edema Neuro: nonfocal, patient AA&O x 4, speech intact, no facial droop, moving all extremities on command with equal strength 5/5 Results & Data Vital Signs (Past 12 Hours) Vital Signs Temp Pulse Resp BP Pulse Ox 03/09/19 00:46 73 17 128/79 03/09/19 00:45 81 16 03/09/19 00:30 82 19 128/77 03/09/19 00:15 79 21 124/81 03/09/19 00:02 80 21 03/09/19 00:01 79 132/76 03/09/19 00:00 80 03/08/19 23:45 37.2 C 83 129/76 03/08/19 23:32 83 93 03/08/19 23:31 82 19 132/71 93 03/08/19 23:30 81 19 94 03/08/19 23:16 76 20 131/70 93 03/08/19 23:15 67 18 93 03/08/19 23:01 78 129/71 96 03/08/19 23:00 87 95 03/08/19 22:45 86 18 127/69 91 03/08/19 22:34 95 H 116/77 93 03/08/19 22:30 104 H 03/08/19 22:28 103 H 97 03/08/19 22:20 100 H 03/08/19 21:35 39.5 C H 114 H 18 111/70 96 Laboratory Results Lab Results 03/08/19 03/08/19 03/08/19 Range/Units 22:27 22:27 22:27 WBC 14.54 H (4.8-10.8) K/uL RBC 5.02 (4.2-5.4) M/uL Hgb 15.4 (12.0-16.0) g/dL Hct 44.3 (37-47) % MCV 88.2 (80-100) fL MCH 30.7 (25-34) pg MCHC 34.8 (32-36) g/dL RDW Std Deviation 47.3 H (36.4-46.3) fL RDW Coeff of Sherwin 14.6 H (11.5-14.5) % Plt Count 160 (130-400) K/uL MPV 11.6 H (7.4-10.4) fL Immature Gran % (Auto) 0.3 % Neut % (Auto) 84.1 % Lymph % (Auto) 4.8 % [place] % (Auto) 10.7 % Eos % (Auto) 0.0 % Baso % (Auto) 0.1 % Immature Gran # (Auto) 0.04 H (0.00-0.02) K/uL Neut # (Auto) 12.24 H (1.4-6.5) K/uL Lymph # (Auto) 0.70 L (1.2-3.4) K/uL [place] # (Auto) 1.55 H (0.11-0.59) K/uL Eos # (Auto) 0.00 (0-0.5) K/uL Baso # (Auto) 0.01 (0-0.2) K/uL PT 10.5 (9.0-12.0) Seconds INR 1.0 (0.9-1.1) Sodium 133 L (136-145) mmol/L Potassium 3.6 (3.5-5.1) mmol/L Chloride 94 L (98-107) mmol/L Carbon Dioxide 28 (21-32) mmol/L Anion Gap 11.0 (3-11) BUN 35 H (7-18) mg/dl Creatinine 2.21 H (0.6-1.2) mg/dl Est Cr Clr Drug Dosing 26.1 ml/min Est GFR ( Amer) 25.9 Est GFR (Non-Af Amer) 22.3 BUN/Creatinine Ratio 15.8 (10-20) Glucose 117 H (70-99) mg/dl POC Lactic Acid Arnoldo (0.90-1.70) mmol/L Calcium 9.8 (8.5-10.1) mg/dl Magnesium 2.7 H (1.8-2.4) mg/dl Total Bilirubin 0.7 (0.2-1) mg/dl AST 30 (15-37) U/L ALT 34 (12-78) U/L Alkaline Phosphatase 68 (45-117) U/L Troponin I < 0.015 (0-0.045) ng/ml NT-Pro-B Natriuret Pep 256 (0-900) pg/ml Total Protein 8.8 H (6.4-8.2) gm/dl Albumin 3.6 (3.4-5.0) gm/dl Globulin 5.2 H (2.5-4.0) gm/dl Albumin/Globulin Ratio 0.7 L (0.9-2) Procalcitonin (0-0.5) ng/ml Urine Color Urine Appearance (Clear) Urine pH (4.5-7.5) Ur Specific [place] (1.000-1.030) Urine Protein (Negative) Urine Glucose (UA) (Negative) Urine Ketones (Negative) Urine Blood (Negative) Urine Nitrite (Negative) Urine Bilirubin (Negative) Urine Urobilinogen (Negative) Ur Leukocyte Esterase (Negative) Urine WBC (Auto) (0-5) /hpf Urine RBC (Auto) (0-4) /hpf U Hyaline Cast (Auto) (0-5) /lpf U Epithel Cells (Auto) (0-5) /lpf Urine Bacteria (Auto) (Negative) Granular Casts (0) /lpf Urine Yeast 03/08/19 03/08/19 03/08/19 Range/Units 22:27 22:40 23:39 WBC (4.8-10.8) K/uL RBC (4.2-5.4) M/uL Hgb (12.0-16.0) g/dL Hct (37-47) % MCV (80-100) fL MCH (25-34) pg MCHC (32-36) g/dL RDW Std Deviation (36.4-46.3) fL RDW Coeff of Sherwin (11.5-14.5) % Plt Count (130-400) K/uL MPV (7.4-10.4) fL Immature Gran % (Auto) % Neut % (Auto) % Lymph % (Auto) % [place] % (Auto) % Eos % (Auto) % Baso % (Auto) % Immature Gran # (Auto) (0.00-0.02) K/uL Neut # (Auto) (1.4-6.5) K/uL Lymph # (Auto) (1.2-3.4) K/uL [place] # (Auto) (0.11-0.59) K/uL Eos # (Auto) (0-0.5) K/uL Baso # (Auto) (0-0.2) K/uL PT (9.0-12.0) Seconds INR (0.9-1.1) Sodium (136-145) mmol/L Potassium (3.5-5.1) mmol/L Chloride (98-107) mmol/L Carbon Dioxide (21-32) mmol/L Anion Gap (3-11) BUN (7-18) mg/dl Creatinine (0.6-1.2) mg/dl Est Cr Clr Drug Dosing ml/min Est GFR ( Amer) Est GFR (Non-Af Amer) BUN/Creatinine Ratio (10-20) Glucose (70-99) mg/dl POC Lactic Acid Arnoldo 2.35 H (0.90-1.70) mmol/L Calcium (8.5-10.1) mg/dl Magnesium (1.8-2.4) mg/dl Total Bilirubin (0.2-1) mg/dl AST (15-37) U/L ALT (12-78) U/L Alkaline Phosphatase (45-117) U/L Troponin I (0-0.045) ng/ml NT-Pro-B Natriuret Pep (0-900) pg/ml Total Protein (6.4-8.2) gm/dl Albumin (3.4-5.0) gm/dl Globulin (2.5-4.0) gm/dl Albumin/Globulin Ratio (0.9-2) Procalcitonin 0.60 H (0-0.5) ng/ml Urine Color Yellow Urine Appearance Cloudy A (Clear) Urine pH 5.0 (4.5-7.5) Ur Specific [place] 1.023 (1.000-1.030) Urine Protein 2+ H (Negative) Urine Glucose (UA) Negative (Negative) Urine Ketones Negative (Negative) Urine Blood 3+ H (Negative) Urine Nitrite Negative (Negative) Urine Bilirubin Negative (Negative) Urine Urobilinogen Negative (Negative) Ur Leukocyte Esterase Negative (Negative) Urine WBC (Auto) 5-10 H (0-5) /hpf Urine RBC (Auto) 10-30 H (0-4) /hpf U Hyaline Cast (Auto) 1-5 (0-5) /lpf U Epithel Cells (Auto) >30 H (0-5) /lpf Urine Bacteria (Auto) Negative (Negative) Granular Casts 1-5 H (0) /lpf Urine Yeast Not Reportable Diagnostic Findings XR chest 1V portable HISTORY: 68 years-old Female Sepsis acute sepsis COMPARISON: Chest radiographs 02/28/2019 TECHNIQUE: Portable AP view of the chest FINDINGS: Cardiomediastinal and hilar silhouettes are within normal limits. Interval development of alveolar opacities of the left upper lobe. No pneumothorax, pleural effusion or overt pulmonary edema. Degenerative changes of the shoulders and spine. IMPRESSION: Interval development of left upper lobe pneumonia. Follow-up after treatment course recommended to document resolution. The above report was generated using voice recognition software. It may contain grammatical, syntax or spelling errors. Electronically signed by: Dagoberto Lechuga M.D. 03/08/2019 10:46 PM Dictated: 03/08/192244 Transcribed: 03/08/192244 ECG Additional Comments: Study with NSR at 97, normal axis and intervals, poor R wave progression Code Status & VTE Plan Code Status FULL VTE Prophylaxis Plan VTE Prophylaxis will be ordered: Yes PG Care Time/CCT Total # of Minutes Spent Total Time Spent with Patient: Total time spent is greater than 50% in behavioral therapy coordinator rdination of care (as documented) at patient's floor/unit and/or counseling patient: (1) Pneumonia Laterality: left Lung location: upper lobe of lung Pneumonia type: due to unspecified organism Qualified Code(s): J18.1 - Lobar pneumonia, unspecified organism (2) Vomiting Nausea presence: with nausea Vomiting Intractability: non-intractable Vomiting type: unspecified Qualified Code(s): R11.2 - Nausea with vomiting, unspecified (3) Hypertension Hypertension type: essential hypertension Qualified Code(s): I10 - Essential (primary) hypertension (4) Hyperlipidemia Hyperlipidemia type: unspecified Qualified Code(s): E78.5 - Hyperlipidemia, unspecified (5) Depression Depression Type: unspecified Qualified Code(s): F32.9 - Major depressive disorder, single episode, unspecified
[2019-03-09] MEDS ORDERED: ONDANSETRON INJ 2 MG/ML 2 ML VIAL IV PRN (02:23)
[2019-03-09] MEDS ORDERED: ACETAMINOPHEN 325 MG TAB PO PRN (02:23)
[2019-03-09] MEDS ORDERED: SODIUM CHLORIDE 0.9% 1000ML 1,000 ML IV SCH (02:23)
[2019-03-09] MEDS ORDERED: CODEINE PO PRN (02:23)
[2019-03-09] MEDS ORDERED: ALBUTEROL 0.5% NEB SOLN 2.5 MG/0.5 ML VIAL NEB PRN (02:23)
[2019-03-09] MEDS ORDERED: PIPERACILL/TAZOBAC CONSULT ACTIVE PRN (02:23)
[2019-03-09] MEDS ORDERED: VANCOMYCIN CONSULT ACTIVE PRN (02:23)
[2019-03-09] MEDS ORDERED: PROMETHAZINE PO PRN (02:23)
[2019-03-09] MEDS ORDERED: VANCOMYCIN HCL 1,000 MG in SODIUM CHLORIDE 0.9% 250 ML IV SCH (02:23)
[2019-03-09] MEDS ORDERED: PIPERACILLIN/TAZOBACTAM 3.375 GM in DEXTROSE 5% 100 ML IV ONE (02:45)
[2019-03-09] MEDS ORDERED: HYDROCODONE/HOMATROPINE SYRUP 5MG/1.5MG 5ML UDP PO PRN (02:48)
[2019-03-09 06:21] LABS: Creatinine Clr Calc Pharmacy 37.3 ml/min; Est GFR (African American) 38.8; Est GFR (Non-African American) 33.5
[2019-03-09] MEDS: PIPERACILLIN/TAZOBACTAM 3.375 GM in DEXTROSE 5% 100 ML IV SCH ×3 (08:36→23:32)
[2019-03-09] MEDS: MAGNESIUM OXIDE 400 MG TAB PO SCH ×2 (08:37→21:14)
[2019-03-09] MEDS: predniSONE 5 MG TAB PO SCH (08:37)
[2019-03-09 12:27] LABS: Influenza A virus by PCR Neg for Influ A (Neg); Influenza B virus by PCR Neg for Influ B (Neg)
[2019-03-09] MEDS: BENZONATATE 100 MG CAPSULE PO SCH ×2 (13:12→21:12)
[2019-03-09] MEDS: LACTOBACILLUS ACIDOPHILUS (FLORANEX) TAB PO SCH ×2 (13:12→17:15)
[2019-03-09] MEDS: NYSTATIN SUSP 500,000 U/5 ML UDC PO SCH ×3 (13:12→21:14)
[2019-03-09] MEDS: guaiFENesin 600 MG TABCR PO SCH ×2 (13:12→21:12)
[2019-03-09] MEDS: ALBUTEROL HFA 8 GM INHALER INH SCH ×3 (13:13→23:32)
--- NOTE | 2019-03-09 19:25 | Hospitalist Progress Note ---
Date of Service March 09, 2019 Assessment & Plan (1) Pneumonia: SOUMYA. This is despite recent 10-day course of 3rd generation cephalosporin. MRSA NITROGLYCERIN DISTRIBUTOR swab negative. Suspect gram negative etiology. Cannot rule out atypical infection but less likely. Cont zosyn. Cont zithromax. Supportive care. Follow blood cx's. Check rapid flu PCR to be complete. Present on Admission?: Yes (2) Asthma: Exacerbation improving. Is on prednisone taper - continue such. Schedule ventolin inhaler 2 puffs qid. Schedule mucinex, tessalon. Incentive spirometry. Present on Admission?: Yes (3) Acute kidney injury: Improving. Cont fluids, repeat BMP am. Present on Admission?: Yes (4) Crohn's disease: Controlled on humira. (5) DVT prophylaxis: add lovenox 30mg daily Subjective patient feels a little better since yesterday. still with cough; largely nonproductive. no dyspnea or orthopnea at rest. has had myalgias, headache, chills. Physical Exam Constitutional: no acute distress, not ill appearing and no altered mental status ENMT: external ear and nose normal, oropharynx normal Respiratory: no respiratory distress Auscultation: + diminished lung sounds (left anterior chest (SOUMYA)); no rales and no wheezes Cardiovascular: Rate/Rhythm: regular rate and regular rhythm Heart Sounds: normal S1 and normal S2; no murmur Vessels: posterior tibial pulses present and dorsalis pedis pulses present; no JVD Gastrointestinal (Abdomen): normal bowel sounds, soft, nontender, no hepatosplenomegaly Psychiatric: A+Ox3, euthymic affect Results & Data Vital Signs (Past 12 Hours) Vital Signs Temp Pulse Resp BP Pulse Ox 03/09/19 15:09 36.9 C 83 18 145/76 H 98 Laboratory Results Laboratory Results - last 24 hr 03/08/19 03/08/19 03/08/19 22:27 22:27 22:27 WBC 14.54 H RBC 5.02 Hgb 15.4 Hct 44.3 MCV 88.2 MCH 30.7 MCHC 34.8 RDW Std Deviation 47.3 H RDW Coeff of Sherwin 14.6 H Plt Count 160 MPV 11.6 H Immature Gran % (Auto) 0.3 Neut % (Auto) 84.1 Lymph % (Auto) 4.8 [place] % (Auto) 10.7 Eos % (Auto) 0.0 Baso % (Auto) 0.1 Immature Gran # (Auto) 0.04 H Neut # (Auto) 12.24 H Lymph # (Auto) 0.[address] [place] # (Auto) 1.55 H Eos # (Auto) 0.00 Baso # (Auto) 0.01 PT 10.5 INR 1.0 Sodium 133 L Potassium 3.6 Chloride 94 L Carbon Dioxide 28 Anion Gap 11.0 BUN 35 H Creatinine 2.21 H Est Cr Clr Drug Dosing 26.1 Est GFR ( Amer) 25.9 Est GFR (Non-Af Amer) 22.3 BUN/Creatinine Ratio 15.8 Glucose 117 H POC Lactic Acid Arnoldo Lactate Calcium 9.8 Magnesium 2.7 H Total Bilirubin 0.7 AST 30 ALT 34 Alkaline Phosphatase 68 Troponin I < 0.015 NT-Pro-B Natriuret Pep 256 Total Protein 8.8 H Albumin 3.6 Globulin 5.2 H Albumin/Globulin Ratio 0.7 L Procalcitonin Urine Color Urine Appearance Urine pH Ur Specific [place] Urine Protein Urine Glucose (UA) Urine Ketones Urine Blood Urine Nitrite Urine Bilirubin Urine Urobilinogen Ur Leukocyte Esterase Urine WBC (Auto) Urine RBC (Auto) U Hyaline Cast (Auto) U Epithel Cells (Auto) Urine Bacteria (Auto) Granular Casts Urine Yeast Nasal Screen MRSA (PCR) Random Vancomycin Hepatitis C Ab Screen Influenza Type A (PCR) Influenza Type B (PCR) 03/08/19 03/08/19 03/08/19 22:27 22:40 23:39 WBC RBC Hgb Hct MCV MCH MCHC RDW Std Deviation RDW Coeff of Sherwin Plt Count MPV Immature Gran % (Auto) Neut % (Auto) Lymph % (Auto) [place] % (Auto) Eos % (Auto) Baso % (Auto) Immature Gran # (Auto) Neut # (Auto) Lymph # (Auto) [place] # (Auto) Eos # (Auto) Baso # (Auto) PT INR Sodium Potassium Chloride Carbon Dioxide Anion Gap BUN Creatinine Est Cr Clr Drug Dosing Est GFR ( Amer) Est GFR (Non-Af Amer) BUN/Creatinine Ratio Glucose POC Lactic Acid Arnoldo 2.35 H Lactate Calcium Magnesium Total Bilirubin AST ALT Alkaline Phosphatase Troponin I NT-Pro-B Natriuret Pep Total Protein Albumin Globulin Albumin/Globulin Ratio Procalcitonin 0.60 H Urine Color Yellow Urine Appearance Cloudy A Urine pH 5.0 Ur Specific [place] 1.023 Urine Protein 2+ H Urine Glucose (UA) Negative Urine Ketones Negative Urine Blood 3+ H Urine Nitrite Negative Urine Bilirubin Negative Urine Urobilinogen Negative Ur Leukocyte Esterase Negative Urine WBC (Auto) 5-10 H Urine RBC (Auto) 10-30 H U Hyaline Cast (Auto) 1-5 U Epithel Cells (Auto) >30 H Urine Bacteria (Auto) Negative Granular Casts 1-5 H Urine Yeast Not Reportable Nasal Screen MRSA (PCR) Random Vancomycin Hepatitis C Ab Screen Influenza Type A (PCR) Influenza Type B (PCR) 03/09/19 03/09/19 03/09/19 03:30 05:43 05:43 WBC RBC Hgb Hct MCV MCH MCHC RDW Std Deviation RDW Coeff of Sherwin Plt Count MPV Immature Gran % (Auto) Neut % (Auto) Lymph % (Auto) [place] % (Auto) Eos % (Auto) Baso % (Auto) Immature Gran # (Auto) Neut # (Auto) Lymph # (Auto) [place] # (Auto) Eos # (Auto) Baso # (Auto) PT INR Sodium Potassium Chloride Carbon Dioxide Anion Gap BUN Creatinine 1.58 H D Est Cr Clr Drug Dosing 37.3 Est GFR ( Amer) 38.8 Est GFR (Non-Af Amer) 33.5 BUN/Creatinine Ratio Glucose POC Lactic Acid Arnoldo Lactate 1.2 Calcium Magnesium Total Bilirubin AST ALT Alkaline Phosphatase Troponin I NT-Pro-B Natriuret Pep Total Protein Albumin Globulin Albumin/Globulin Ratio Procalcitonin Urine Color Urine Appearance Urine pH Ur Specific [place] Urine Protein Urine Glucose (UA) Urine Ketones Urine Blood Urine Nitrite Urine Bilirubin Urine Urobilinogen Ur Leukocyte Esterase Urine WBC (Auto) Urine RBC (Auto) U Hyaline Cast (Auto) U Epithel Cells (Auto) Urine Bacteria (Auto) Granular Casts Urine Yeast Nasal Screen MRSA (PCR) Negative Random Vancomycin Hepatitis C Ab Screen Influenza Type A (PCR) Influenza Type B (PCR) 03/09/19 03/09/19 03/09/19 05:43 05:44 11:35 WBC RBC Hgb Hct MCV MCH MCHC RDW Std Deviation RDW Coeff of Sherwin Plt Count MPV Immature Gran % (Auto) Neut % (Auto) Lymph % (Auto) [place] % (Auto) Eos % (Auto) Baso % (Auto) Immature Gran # (Auto) Neut # (Auto) Lymph # (Auto) [place] # (Auto) Eos # (Auto) Baso # (Auto) PT INR Sodium Potassium Chloride Carbon Dioxide Anion Gap BUN Creatinine Est Cr Clr Drug Dosing Est GFR ( Amer) Est GFR (Non-Af Amer) BUN/Creatinine Ratio Glucose POC Lactic Acid Arnoldo Lactate Calcium Magnesium Total Bilirubin AST ALT Alkaline Phosphatase Troponin I NT-Pro-B Natriuret Pep Total Protein Albumin Globulin Albumin/Globulin Ratio Procalcitonin Urine Color Urine Appearance Urine pH Ur Specific [place] Urine Protein Urine Glucose (UA) Urine Ketones Urine Blood Urine Nitrite Urine Bilirubin Urine Urobilinogen Ur Leukocyte Esterase Urine WBC (Auto) Urine RBC (Auto) U Hyaline Cast (Auto) U Epithel Cells (Auto) Urine Bacteria (Auto) Granular Casts Urine Yeast Nasal Screen MRSA (PCR) Random Vancomycin 19.8 Hepatitis C Ab Screen Neg Influenza Type A (PCR) Neg for Influ A Influenza Type B (PCR) Neg for Influ B PG Care Time/CCT Total # of Minutes Spent Total Time Spent with Patient: Total time spent is greater than 50% in coordination of care (as documented) at patient's floor/unit and/or counseling patient: (1) Pneumonia Laterality: left Lung location: upper lobe of lung Pneumonia type: due to unspecified organism Qualified Code(s): J18.1 - Lobar pneumonia, unspecified organism (2) Asthma Asthma severity: mild Asthma persistence: intermittent Asthma complication type: with acute exacerbation Qualified Code(s): J45.21 - Mild intermittent asthma with (acute) exacerbation (3) Crohn's disease Gastrointestinal tract location: unspecified location Digestive disease complication type: without complication Qualified Code(s): K50.90 - Crohn's disease, unspecified, without complications
[2019-03-09] MEDS: ENOXAPARIN INJ 30 MG/0.3 ML SYR SQ SCH (21:10)
[2019-03-09] MEDS: FOLIC ACID 1 MG TAB PO SCH (21:12)
[2019-03-09] MEDS: VENLAFAXINE HCL XR 150 MG CAPXR PO SCH (21:13)
[2019-03-09] MEDS: CETIRIZINE HCL 10 MG TABLET PO SCH (21:13)
[2019-03-09] MEDS: MONTELUKAST SODIUM 10 MG TABLET PO SCH (21:14)
[2019-03-09] MEDS: ATORVASTATIN 20 MG TAB PO SCH (21:14)
[2019-03-09] MEDS: AZITHROMYCIN 250 MG in DEXTROSE 5% 250 ML IV SCH (22:46)
[2019-03-10] MEDS: ALBUTEROL HFA 8 GM INHALER INH SCH ×4 (05:47→23:35)
[2019-03-10 06:22] LABS: Basophils # (auto) 0.02 K/uL (0-0.2); Basophils % (auto) 0.3 %; Eosinophils # (auto) 0.01 K/uL (0-0.5); Eosinophils % (auto) 0.1 %; Hematocrit (blood only) 35.4 % (37-47); Hemoglobin 11.7 g/dL (12.0-16.0); Immature Granulocytes # (auto) 0.01 K/uL (0.00-0.02); Immature Granulocytes % (auto) 0.1 %; Lymphocytes # (auto) 2.35 K/uL (1.2-3.4); Lymphocytes % (auto) 30.1 %; Mean Corpuscular Hgb Conc 33.1 g/dL (32-36); Mean Corpuscular Volume 89.8 fL (80-100); Mean Platelet Volume 11.3 fL (7.4-10.4); Monocytes # (auto) 1.36 K/uL (0.11-0.59); Monocytes % (auto) 17.4 %; Neutrophils # (auto) 4.07 K/uL (1.4-6.5); Platelet Count 141 K/uL (130-400); RDW Coefficient of Variation 14.9 % (11.5-14.5); RDW Standard Deviation 48.9 fL (36.4-46.3); Red Blood Count 3.94 M/uL (4.2-5.4); White Blood Count 7.82 K/uL (4.8-10.8)
[2019-03-10 06:34] LABS: BUN Creatinine Ratio 19.7 (10-20); Calcium 8.5 mg/dl (8.5-10.1); Creatinine Clr Calc Pharmacy 53.1 ml/min; Est GFR (African American) 59.5; Est GFR (Non-African American) 51.3; Potassium 3.9 mmol/L (3.5-5.1)
[2019-03-10] MEDS: LACTOBACILLUS ACIDOPHILUS (FLORANEX) TAB PO SCH ×3 (07:55→16:11)
[2019-03-10] MEDS: PIPERACILLIN/TAZOBACTAM 3.375 GM in DEXTROSE 5% 100 ML IV SCH ×3 (07:55→23:27)
[2019-03-10] MEDS: ENOXAPARIN INJ 30 MG/0.3 ML SYR SQ SCH (08:37)
[2019-03-10] MEDS: guaiFENesin 600 MG TABCR PO SCH ×2 (08:38→20:38)
[2019-03-10] MEDS: BENZONATATE 100 MG CAPSULE PO SCH ×3 (08:38→20:38)
[2019-03-10] MEDS: predniSONE 5 MG TAB PO SCH (08:38)
[2019-03-10] MEDS: NYSTATIN SUSP 500,000 U/5 ML UDC PO SCH ×4 (08:39→20:38)
[2019-03-10] MEDS: MAGNESIUM OXIDE 400 MG TAB PO SCH ×2 (09:47→20:38)
--- NOTE | 2019-03-10 18:44 | Hospitalist Progress Note ---
Date of Service March 10, 2019 Assessment & Plan (1) Pneumonia: SOUMYA IMPROVING NICELY This occurred despite recent 10-day course of 3rd generation cephalosporin. 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 Suspect gram negative etiology. Cannot rule out atypical infection but less likely. Cont zosyn. Cont zithromax. d/c both in AM and change to PO levaquin. Finish levaquin course at home. Supportive care. Blood cx's cont to be negative. Flu PCR was negative. (2) Asthma: Exacerbation resolved.. Is on prednisone taper - continue such. cont ventolin inhaler 2 puffs qid. cont mucinex, tessalon. Incentive spirometry. (3) Acute kidney injury: resolved fluids stopped 2nd to pneumonia/dehydration (4) Crohn's disease: Controlled on humira. (5) Hypertension: Now that MARKOS and dehydration are resolved- resume lisinopril in am; resume HCTZ in am (6) Hyponatremia: 2nd to dehydration - resolved BMP wnl today (7) DVT prophylaxis: lovenox 30mg daily anticipate d/c in am tomorrow on Tuesday Subjective Feels very good today. Energy is back. Appetite is excellent. Cough resolving; no sputum. No dyspnea. Review of Systems Constitutional: no fever, no chills, no body aches, no fatigue and no anorexia Respiratory: no dyspnea on exertion, no hemoptysis and no wheezing Cardiovascular: no chest pain Gastrointestinal: no abdominal pain, no nausea, no vomiting and no diarrhea/loose stools Physical Exam Constitutional: no acute distress, not ill appearing and no altered mental status ENMT: external ear and nose normal, oropharynx normal Respiratory: no respiratory distress Auscultation: + diminished lung sounds (left anterior chest (SOUMYA)) and + wheezes (focal, SOUMYA, very scant -- posterior chest); no rales Cardiovascular: Rate/Rhythm: regular rate and regular rhythm Heart Sounds: normal S1 and normal S2; no murmur Vessels: posterior tibial pulses present and dorsalis pedis pulses present; no JVD Gastrointestinal (Abdomen): normal bowel sounds, soft, nontender, no hepatosplenomegaly Psychiatric: A+Ox3, euthymic affect Results & Data Vital Signs (Past 12 Hours) Vital Signs Temp Pulse Resp BP Pulse Ox 03/10/19 15:00 37.2 C 72 16 165/84 H 98 03/10/19 09:56 166/92 H 03/10/19 07:42 36.9 C 97 H 16 185/68 H 97 Laboratory Results Laboratory Results - last 24 hr 03/10/19 03/10/19 05:42 05:42 WBC 7.82 RBC 3.94 L Hgb 11.7 L D Hct 35.4 L MCV 89.8 MCH 29.7 MCHC 33.1 RDW Std Deviation 48.9 H RDW Coeff of Sherwin 14.9 H Plt Count 141 MPV 11.3 H Immature Gran % (Auto) 0.1 Neut % (Auto) 52.0 Lymph % (Auto) 30.1 Cuming % (Auto) 17.4 Eos % (Auto) 0.1 Baso % (Auto) 0.3 Immature Gran # (Auto) 0.01 Neut # (Auto) 4.07 Lymph # (Auto) 2.35 Cuming # (Auto) 1.36 H Eos # (Auto) 0.01 Baso # (Auto) 0.02 Sodium 143 D Potassium 3.9 Chloride 107 Carbon Dioxide 29 Anion Gap 7.0 BUN 22 H Creatinine 1.11 D Est Cr Clr Drug Dosing 53.1 Est GFR ( Amer) 59.5 Est GFR (Non-Af Amer) 51.3 BUN/Creatinine Ratio 19.7 Glucose 101 H Calcium 8.5 PG Care Time/CCT Total # of Minutes Spent Total Time Spent with Patient: Total time spent is greater than 50% in coordination of care (as documented) at patient's floor/unit and/or counseling patient: (1) Crohn's disease Digestive disease complication type: without complication Gastrointestinal tract location: unspecified location Qualified Code(s): K50.90 - Crohn's disease, unspecified, without complications (2) Pneumonia Laterality: left Lung location: upper lobe of lung Pneumonia type: due to unspecified organism Qualified Code(s): J18.1 - Lobar pneumonia, unspecified organism (3) Asthma Asthma complication type: with acute exacerbation Asthma persistence: intermittent Asthma severity: mild Qualified Code(s): J45.21 - Mild intermittent asthma with (acute) exacerbation (4) Hypertension Hypertension type: essential hypertension Qualified Code(s): I10 - Essential (primary) hypertension
[2019-03-10] MEDS: VENLAFAXINE HCL XR 150 MG CAPXR PO SCH (20:37)
[2019-03-10] MEDS: ATORVASTATIN 20 MG TAB PO SCH (20:38)
[2019-03-10] MEDS: MONTELUKAST SODIUM 10 MG TABLET PO SCH (20:38)
[2019-03-10] MEDS: FOLIC ACID 1 MG TAB PO SCH (20:38)
[2019-03-10] MEDS: CETIRIZINE HCL 10 MG TABLET PO SCH (20:39)
[2019-03-10] MEDS: AZITHROMYCIN 250 MG in DEXTROSE 5% 250 ML IV SCH (23:27)
[2019-03-11] MEDS: ALBUTEROL HFA 8 GM INHALER INH SCH ×2 (05:20→11:52)
[2019-03-11] MEDS ORDERED: LISINOPRIL 20 MG TAB PO STA (06:07)
[2019-03-11] MEDS: predniSONE 5 MG TAB PO SCH (08:00)
[2019-03-11] MEDS: LACTOBACILLUS ACIDOPHILUS (FLORANEX) TAB PO SCH ×2 (08:00→11:52)
[2019-03-11] MEDS: MAGNESIUM OXIDE 400 MG TAB PO SCH (08:01)
[2019-03-11] MEDS: guaiFENesin 600 MG TABCR PO SCH (08:01)
[2019-03-11] MEDS: ENOXAPARIN INJ 30 MG/0.3 ML SYR SQ SCH (08:01)
[2019-03-11] MEDS: BENZONATATE 100 MG CAPSULE PO SCH (08:01)
[2019-03-11] MEDS: NYSTATIN SUSP 500,000 U/5 ML UDC PO SCH ×2 (08:02→11:53)
[2019-03-11] MEDS ORDERED: TRIAMTERENE/HCTZ 37.5/25MG CAP PO SCH (09:00)
[2019-03-11] MEDS ORDERED: levoFLOXacin 750 MG TAB PO SCH (11:00)
--- NOTE | 2019-03-12 07:49 | Discharge Summary ---
Date of Service date of admission - March 09, 2019 date of discharge - March 11, 2019 Admission HPI Per Admitting Provider Amanda Stanley is a pleasant 68yo female with history of Crohn's disease on Humira, Asthma, frequent bronchitis. She follows with Dr. Luis and was seen recently on 28 February with complaint of persistent cough, headache and ear pain. She was prescribed prednisone taper x 16 days and Cefuroxime 500mg po BID x 10 days. She was taking her medications as prescribed. Overall not improving. Yesterday she developed worsening headache, fever to 102.7, chills, nausea with 5-6 episodes of NB/NB vomiting as well as 5-6 episodes of loose stool. She feels that her cough has been improving. Patient denies chest pain, palpitaitons, abdominal pain, dysuria, rash. She denies sick contacts or recent travel. Patient states she feels much improved. No additional complaints at this time On arrival to the ER she was found to be febrile at 39.3, tachycardic at 114bpm, blood pressure stable, RR of 21 saturating 93% on room air. CXR with new SOUMYA infiltrate suggestive of PNA. ER course: NSS x 3 ltiers, Vancomycin 1750mg IV, Phenergan, Levofloxacin 750mg, Azithromycin, Acetaminophen Principal Diagnosis SOUMYA pneumonia Discharge Exam Constitutional no acute distress, not ill appearing and no altered mental status ENMT external ear and nose normal, oropharynx normal Respiratory normal respiratory effort, lungs clear to auscultation no respiratory distress Cardiovascular Rate/Rhythm: regular rate and regular rhythm Heart Sounds: normal S1 and normal S2; no murmur Vessels: posterior tibial pulses present and dorsalis pedis pulses present; no JVD Gastrointestinal (Abdomen) normal bowel sounds, soft, nontender, no hepatosplenomegaly chaperoned by staff - external rectal exam only -- no external hemorrhoids seen Psychiatric A+Ox3, euthymic affect Discharge Data Allergies Allergy/AdvReac Type Severity Reaction Status Date / Time cat dander Allergy Unknown HAY FEVER Verified 03/08/19 22:16 fluticasone Allergy Unknown INFLAMED Verified 03/08/19 22:16 AIRWAYS ragweed pollen Allergy Unknown HAY FEVER Verified 03/08/19 22:16 salmeterol Allergy Unknown INFLAMED Verified 03/08/19 22:16 AIRWAYS baclofen AdvReac Unknown DIZZY, Verified 03/08/19 22:16 NAUSEA, SWEATS AND NIGHTMARES butalbital AdvReac Unknown SWEATS AND Verified 03/08/19 22:16 NIGHTMARES clarithromycin AdvReac Unknown Nausea, Verified 03/08/19 22:16 diarrhea Hospital Course (1) Pneumonia: SOUMYA. IMPROVED NICELY during the stay with broad-spectrum IV antibiotics. She also received atypical coverage. This pneumonia developed despite recent 10-day course of 3rd generation cephalosporin. Suspect gram negative etiology. Cannot rule out atypical infection but less likely. On day of discharge she was transitioned from IV zosyn/zithromax to PO levaquin. She will complete 4 more doses of levaquin at home. Blood cultures were negative. Flu PCR was negative. 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 Recommended repeat cxr in 1 month to ensure radiographic resolution. She never had an O2 requirement while hospitalized. (2) Asthma: Exacerbation resolved. Was on prednisone taper at time of admission. She was continued on ventolin inhaler 2 puffs qid. She needs just a few more days of prednisone post-discharge. (3) Acute kidney injury: resolved fluids stopped 2nd to pneumonia/dehydration Peak Cr was 2.2, improving to 1.1 (4) Crohn's disease: Controlled on humira. (5) Hypertension: After resolution of MARKOS and dehydration her lisinopril and HCTZ were resumed. (6) Hyponatremia: 2nd to dehydration - resolved. BMP normal prior to discharge home. (7) Candidiasis of mouth and esophagus: Thrush resolving prior to discharge. Complete several more days of nystatin swish. (8) BRBPR (bright red blood per rectum): Developed this on AM of discharge. Mainly with wiping. Last colonoscopy in 2018 showed internal hemorrhoids. Statistically the blood was likely from the hemorrhoids. She did not have symptoms of active Crohn's or c diff infection while here. Anusol suppository prescription given to patient. If symptoms worsen or persist she would need to see her primary GI physician [facility]. Total Time Total Time Spent Total Time Spent (In Minutes): 35 Total Time Includes: Examination of the Patient, Discharge Planning and Medication Reconciliation Discharge Plan Discharge Items Patient Disposition: Home - Self-Care Reason For Visit: pneumonia Discharge Diagnosis: Left Upper Lobe Pneumonia - improved Recent asthma exacerbation - resolved Condition: Good Discharge Goals: Diagnostic testing Activity: As commented below Activity Comment: light activities for 3-4 days then gradually increase activity as tolerated Exercise/Sports: Gradually increase as tolerated Driving/Machine Use: No limitations Non-emergency contact: Primary Care Provider and Linen Aide Call non-emergency contact if: you have any medication questions, your symptoms worsen and your temperature is above 100.5 Follow-up/Referrals: Leeann Azul CRNP [Primary Care Provider] - (see Ms Latha within 1 week) Nilson Luis DO [Family Provider] - (see Dr Luis or his physician training assistant within 5 days for recheck of lungs) Diet: Heart Healthy Addtl Provider Instructions: From Alejandro Page, hospitalist - You were treated for left upper lobe pneumonia with IV antibiotics. We continued your prednisone taper for your asthma flare-up. You improved with the above measures. You had evidence of dehydration - this resolved with IV fluids. All of your labs normalized during the stay. You also mentioned seeing some blood with wiping your bottom. Your 2018 colonoscopy indeed showed internal hemorrhoids. The blood is likely from the hemorrhoids but if it persists you would need to see Dr Price to ensure the blood is not from your Crohn's. Recommendations - 1. levofloxacin 750mg once daily for 4 more days starting 03/12/19. This is for your pneumonia. Stop any prior antibiotic given to you by your lung doctor or family doctor. 2. nystatin solution - this is for yeast (thrush) in the mouth - 5ml by mouth swish and swallow 4 times a day for 5 more days. 3. probiotics once daily for 1 additional week. Plenty of yogurt, too, while on the levofloxacin with the hopes of preventing diarrhea. 4. hydrocodone-homatropine -- 5ml by mouth every 4 hours as needed for cough. DO NOT DRIVE OR DRINK ALCOHOL IF TAKING THIS MEDICATION IT CONTAINS NARCOTIC. NARCOTICS CAN IMPAIR YOUR THINKING AND DRIVING. 5. for possible hemorrhoids -- if you continue to see blood with wiping may use an anusol suppository every 6 hours, per rectum. You can do these for 5-7 days. If the blood persists or worsens please see Dr Price right away to ensure this is NOT your Crohn's. 6. finish your prednisone taper as follows -- * 15mg x 1 on Tuesday, 03/12 * 10mg x 2 days (03/13 and 03/14) * 5mg x 2 days (03/15 and 03/16) * take with food 7. follow-up -- see separate section. 8. ask Dr Luis for a repeat chest x-ray in about 1 month to ensure all the pneumonia has cleared from your lungs. Return to [facility] if -- * you have fevers over 100.5 degrees * you have worsening cough or shortness of breath despite taking all of your prescribed medications * you develop severe diarrhea -- this can be a sign of c.diff infection which causes the colon to be sick * any other concerns Prescriptions: New nystatin 100,000 unit/mL Suspension 5 ml PO QID 5 Days Qty: 100 RF: 0 hydrocodone-homatropine [Hydromet] 5-1.5 mg/5 mL Syrup 5 ml PO Q4H PRN (Reason: cough) Qty: 100 RF: 0 levofloxacin 750 mg Tablet 750 mg PO DAILY 4 Days Qty: 4 RF: 0 Saccharomyces boulardii 250 mg capsule 250 mg PO DAILY 7 Days Qty: 7 RF: 0 hydrocortisone acetate [Anusol-HC] 25 mg suppository 25 mg MT Q6H PRN (Reason: hemorrhoid) Qty: 24 RF: 0 Continued triamterene-hydrochlorothiazid 37.5-25 mg capsule 1 cap PO QPM Qty: 30 RF: 0 multivitamin Tablet 1 tab PO QPM RF: 0 cetirizine [Zyrtec] 10 mg Tablet 10 mg PO QPM RF: 0 lisinopril 20 mg Tablet 20 mg PO QPM RF: 0 venlafaxine 150 mg Capsule,Extended Release 24hr 300 mg PO QPM RF: 0 folic acid 1 mg Tablet 1 mg PO QPM RF: 0 magnesium oxide 250 mg Tablet 250 mg PO BID RF: 0 Humira Pen 40 mg/0.8 mL Pen Injector Kit 40 mg SUBCUT DIRECTED RF: 0 cholecalciferol (vitamin D3) [Vitamin D3] 2,000 unit Tablet 2,000 unit PO QPM RF: 0 atorvastatin 20 mg tablet 20 mg PO QPM RF: 0 prednisone 5 mg tablet See Rx Instructions .ROUTE .COMPLEX RF: 0 promethazine-codeine 6.25-10 mg/5 mL syrup 5 - 10 ml PO .Q4-6HRS PRN (Reason: Cough/Sore Throat) RF: 0 calcium carbonate [Tums Ultra] 400 mg calcium (1,000 mg) Tablet,Chewable 1,000 mg PO BID RF: 0 potassium 99 mg Tablet 99 mg PO QPM RF: 0 montelukast 10 mg Tablet 10 mg PO QPM RF: 0 Discontinued cefuroxime axetil 500 mg tablet 500 mg PO BID RF: 0 Stand-Alone Forms: Pending Sale To [facility] Discharge Orders: Discharge Order (Routine); Ordered 03/11/19 Ordered By: Alejandro Page Admission Data Admit Date/Time: 03/09/19 01:11 Attending Provider: Alejandro Pgae Admit Provider: Malina Nguyen Primary Care Provider: Leeann Azul. Other Providers: Malina Nguyen Service: Medical Other Interventions: Discharge Summary Assessment (RN) Last Done: 03/11/19 11:11 DC Date/Time DO NOT enter until pt leaves facility: 03/11/19 12:45
== END 2019-03-11 12:45 | disposition home or self-care (01) | DRG 194 ==
LOC: ED 21:33 → 4E 03-09 01:11 → SUATTDRO 03-09 01:11 → 4E 03-09 02:00

== ENCOUNTER 2024-02-28 15:16 | Observation (INO) ==
--- NOTE | 2024-02-28 15:32 | ED Triage Note ---
Date of Service February 28, 2024 Provider in Triage Author: Cosme Engel History of Present Illness This patient was briefly evaluated while in triage. An abbreviated physical exam was performed. This patient is a 73-year-old Female who presents to the ED for evaluation of At PCP today in [facility]. Notes labs were performed and told "severely dehdrated". Notes diarrhea for the past 3 months. Hx crohns disease. Lost 11lbs in past month. Had CBC and CMP performed just earlier today. Physical Exam GENERAL: 73 year old female. In no acute distress. SKIN: No lesions or rashes. HEART: Regular rate and rhythm. LUNGS: Clear to auscultation. ABDOMEN: Bowel sounds normoactive. NEURO: Alert and oriented. No deficits. MUSCULOSKELETAL: No deformities to inspection of the extremities. PSYCH: Patient is pleasant and answers all questions appropriately. Initial orders for labs and / or imaging were placed and patient was placed in the waiting area until a bed is available. Please see further documentation for the full ED course.
[2024-02-28 16:23] LABS: Appearance Urine Clear (Clear); Bacteria Urine Automated None Seen (None Seen); Bilirubin Urine Negative (Negative); Blood Urine Negative (Negative); Color Urine Dark Yellow; Epithelial Cell Urine Auto 0-2 /hpf (0-2); Glucose Urine UA Negative (Negative); Ketones Urine Trace (Negative); Leukocyte Esterase Urine Trace (Negative); Nitrite Urine Negative (Negative); Protein Urine Trace (Negative); RBC Urine Automated 0-2 /hpf (0-2); Specific Gravity Urine 1.026 (1.000-1.030); Urobilinogen Urine Negative (Negative); WBC Urine Automated 0-5 /hpf (0-5); pH Urine 5.5 (4.5-7.5)
[2024-02-28] MEDS: SODIUM CHLORIDE 0.9% 1,000 ML IV ONE (16:59)
--- NOTE | 2024-02-28 17:13 | CT Scan Report ---
CT abd pelvis wo con CLINICAL HISTORY: olegario nvd TECHNIQUE: Helical axial images of the abdomen and pelvis were obtained. Automated dose lowering tech niques and/or adjustment according to patient size were utilized for this exam. This exam was perfor med without intravenous contrast. CT DOSE: 1092.05 mGy.cm COMPARISON: Comparison is made to CT abdomen pelvis 04/21/2019 FINDINGS: Lower chest: No acute abnormality. Liver: Unremarkable. No focal lesions are seen. Gallbladder and biliary tree: No calcified gallstones. Normal caliber wall. No intra- or extrahepatic biliary ductal dilation. Pancreas: Unremarkable, no focal lesions. Spleen: Unremarkable. Adrenals: Unremarkable. Kidneys and ureters: Nonobstructive nephrolithiasis is seen. Bladder: Limited evaluation due to underdistention. Reproductive organs: Incidental note is made of calcified fibroid. Bowel: A hiatal hernia is seen. Diverticulosis is seen without diverticulitis. Lymph nodes Retroperitoneal: Unremarkable. Pelvic: Unremarkable. Mesenteric: Unremarkable. Peritoneum: Normal. Vessels: Atherosclerotic calcifications are seen. Abdominal wall: Unremarkable. Bones: Degenerative changes in the visualized spine. 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 IMPRESSION: No acute abnormalities and in particular no evidence of bowel obstruction. ACT 112: Negative or not required by law. Electronically signed by: Reji Vicente M.D. 02/28/2024 5:11 PM
[2024-02-28 17:50] LABS: Basophils # (auto) 0.09 K/uL (0.00-0.20); Basophils % (auto) 1.2 %; Eosinophils # (auto) 0.23 K/uL (0.00-0.50); Eosinophils % (auto) 3.2 %; Hematocrit (blood only) 40.4 % (37.0-47.0); Hemoglobin 13.6 g/dl (12.0-16.0); Lymphocytes # (auto) 2.86 K/uL (1.20-3.40); Lymphocytes % (auto) 39.4 %; Mean Corpuscular Hemoglobin 28.7 pg (25.0-34.0); Mean Corpuscular Hgb Conc 33.7 g/dL (32.0-36.0); Mean Corpuscular Volume 85.2 fL (80.0-100.0); Mean Platelet Volume 11.2 fL (9.4-12.4); Monocytes # (auto) 0.88 K/uL (0.11-0.59); Monocytes % (auto) 12.1 %; Neutrophils # (auto) 3.19 K/uL (1.40-6.50); Neutrophils % (auto) 44.1 %; Platelet Count 243 K/uL (130-400); RDW Coefficient of Variation 13.4 % (11.5-14.5); RDW Standard Deviation 41.9 fL (36.4-46.3); Red Blood Count 4.74 M/uL (4.20-5.40); White Blood Count 7.25 K/ul (4.8-10.8)
[2024-02-28 17:55] LABS: Albumin Level 4.9 gm/dl (3.4-5.0); BUN Creatinine Ratio 22.4 (10-20); Bilirubin Direct 0.1 mg/dl (0-0.2); Bilirubin,Total 0.4 mg/dl (0.2-1.0); Calcium 10.3 mg/dl (8.6-10.3); Creatinine Clr Calc Pharmacy 23.5 ml/min; Est GFR (African American) 25.3 ml/min; Est GFR (Non-African American) 21.8 ml/min; Potassium 3.3 mmol/L (3.5-5.1)
[2024-02-28] MEDS: SODIUM CHLORIDE 0.9% 1,000 ML IV SCH (18:14)
--- NOTE | 2024-02-28 20:06 | History & Physical Report ---
Date of Service February 28, 2024 Assessment & Plan (1) MARKOS (acute kidney injury): (2) Hypokalemia: (3) Fatigue: (4) Toe pain, right: (5) Anxiety: (6) Depression: (7) Hypertension: (8) Diabetes mellitus: Plan Acute kidney injury/hypokalemia- Creatinine 2.19 on admission, with base around 1.3 Potassium 3.3, with magnesium pending Hold lisinopril and triamterene/HCTZ Status post 1 L normal saline in the ED Continue NSS at 125 MLS per hour Recheck laboratories in a.m. Diarrhea/history of Crohn's ileitis- She reports that she has not had a flareup of Crohn's disease for several years She does follow with Dr. Price, and has a colonoscopy scheduled for end may, which got rescheduled from earlier this summer Patient did have some improvement with cessation of metformin on 01/22, and worsening with this addition of Jardiance on 02/07 She will continue with Adalimumab per GI in the outpatient setting CT scan of abdomen pelvis without acute findings Consult gastroenterology Diabetes mellitus- Hold glipizide Placed on Accu-Cheks with NovoLog SSI History of Present Illness Chief Complaint: The patient was referred to the emergency department PCP office, after having laboratories that showed significant dehydration thought secondary to diarrhea over the past few months Primary Care Provider: MATTY Bowen The patient is a 73-year-old female with a past medical history including bilateral carpal tunnel syndrome, chronic diarrhea, anxiety, depression, hyperlipidemia, hypertension, Crohn's ileitis, migraine, and diabetes mellitus. She has had on and off diarrhea over the past 3 months, and was seen on 01/22, at which time metformin was discontinued. She reports that her diarrhea did proved somewhat, but was still persistent. On 02/07 she was started on Jardiance, and notes that her diarrhea had worsened. She has been working in the yard recently, and thinks that she may have been dehydrated due to yard work in the summer heat, developed significant fatigue, and presented to the outpatient office today for evaluation and laboratories. She was told that her outpatient laboratories showed significant dehydration, and she was told to come into the emergency department for assessment. Allergies Allergy/AdvReac Type Severity Reaction Status Date / Time cat dander Allergy Unknown HAY FEVER Verified 02/28/24 09:53 fluticasone Allergy Unknown INFLAMED Verified 02/28/24 09:53 AIRWAYS ragweed pollen Allergy Unknown HAY FEVER Verified 02/28/24 09:53 salmeterol Allergy Unknown INFLAMED Verified 02/28/24 09:53 AIRWAYS metformin AdvReac Mild Diarrhea Verified 02/28/24 09:53 baclofen AdvReac Unknown DIZZY, Verified 02/28/24 09:53 NAUSEA, SWEATS AND NIGHTMARES butalbital AdvReac Unknown SWEATS AND Verified 02/28/24 09:53 NIGHTMARES clarithromycin AdvReac Unknown Nausea, Verified 02/28/24 09:53 diarrhea Home Medications Medication Instructions Recorded Confirmed Type cholecalciferol (vitamin D3) 50 2,000 unit PO QAM 06/14/18 02/28/24 History mcg (2,000 unit) tablet (Vitamin D3) folic acid 1 mg tablet 1 mg PO QAM 06/14/18 02/28/24 History magnesium oxide 250 mg PO BID 06/14/18 02/28/24 History multivitamin 1 tab PO QPM 06/14/18 02/28/24 History potassium 99 mg tablet 99 mg PO QPM 04/19/19 02/28/24 History Bifidobacterium infantis 4 mg 12 mg PO QAM 05/04/19 02/28/24 History capsule (Align) albuterol sulfate 90 mcg/actuation 2 puffs inhalation Q4H PRN 11/27/19 02/28/24 Rx aerosol inhaler (Ventolin HFA) shortness of breath or wheezing #18 grams ascorbic acid (vitamin C) 500 mg 500 mg PO QAM 04/20/21 02/28/24 History tablet (Vitamin C) calcium lactate 84 mg (648 mg) 84 mg PO BID 04/20/21 02/28/24 History tablet cetirizine 10 mg tablet 10 mg PO QAM 04/20/21 02/28/24 History omeprazole 20 mg tablet,delayed 20 mg PO QAM 04/20/21 02/28/24 History release triamterene 37.5 1 cap PO QAM #90 caps 04/05/23 02/28/24 Rx mg-hydrochlorothiazide 25 mg capsule venlafaxine 150 mg 300 mg (2 x 150 mg) PO QAM #180 05/16/23 02/28/24 Rx capsule,extended release 24 hr caps adalimumab 40 mg/0.4 mL 40 mg (0.4 mL) subcut Q14D 90 days 09/29/23 02/28/24 Rx subcutaneous pen kit (Humalexys(CF) #6 ea Pen) atogepant 60 mg tablet (Qulipta) 60 mg PO DAILY #30 tabs 10/31/23 02/28/24 Rx buspirone 10 mg tablet 10 mg PO BID PRN anxiety #180 tabs 11/16/23 02/28/24 Rx atorvastatin 80 mg tablet 80 mg PO DAILY #90 tabs 01/20/24 02/28/24 Rx glipizide 5 mg tablet, extended 5 mg PO DAILY #30 tabs 02/10/24 02/28/24 Rx release 24 hr lisinopril 20 mg tablet 20 mg PO QPM #90 tabs 02/14/24 02/28/24 Rx Past Med/Surg History Problem List (Updated 02/29/24 @ 01:38 by Jayden Gordon MD) Hypokalemia MARKOS (acute kidney injury) (Acute) Carpal tunnel syndrome on both sides Fatigue Weight loss Toe pain, right Diarrhea Anxiety RSV (respiratory syncytial virus infection) Paroxysmal cough Depression (Chronic) Hyperlipidemia (Chronic) Hypertension (Chronic) Right knee DJD (Chronic) Mild renal insufficiency (Chronic) Crohn's ileitis (Chronic) Pain in metatarsus Migraine Diabetes mellitus Arthritis of knee, left Medical History History of colon polyps History of COVID-19 08/2020; sob, cough, fever, body aches, chills, loss of taste/smell; resolved Osteopenia Crohn's disease Depression Prediabetes HLD (hyperlipidemia) HTN (hypertension) Osteoarthritis GERD (gastroesophageal reflux disease) Migraine Asthma rare use of PRN inh Surgical History History of total right knee replacement History of total right knee replacement (TKR) History of colonoscopy History of esophagogastroduodenoscopy (EGD) History of appendectomy History of tooth extraction wisdom teeth History of tonsillectomy and adenoidectomy History of endoscopic sinus surgery nasal polyp removed Family History Father , age 92 Family history of diabetes mellitus COPD (chronic obstructive pulmonary disease) Grandmother Family hx of colon cancer maternal Colorectal cancer Aunt Breast cancer Mother , age 92 Ovarian cancer Lung cancer COPD (chronic obstructive pulmonary disease) Other No family history of adverse response to anesthesia Denies family history of Prostate cancer Myocardial infarction Social History Smoking Status: Never smoker Second Hand Exposure: No; Do You Dip or Chew Tobacco: No; Hx Alcohol Use: No Hx Substance Use: No Preferred Language: Faroese Communication Ability: Effective Visual Impairment: Limited Hearing Ability: Use of Hearing Aid Senior Program Analyst Required: No Beliefs That Will Affect Care: None marital status: Current Living Situation: Spouse current occupational status: retired 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 How many Children do You have: 1 Other Information That Helps Us Care for You: No Feels Safe at Home: Yes Safety Concerns: Feels Safe At This Time Childhood Exposure to Second-Hand Smoke: Yes Diet: regular caffeine: Yes (soda) during the past year weight has: remained stable Dental Care, Regularly: Yes Physical Activity Frequency: Daily Seatbelt Use: always Sunscreen Use: Yes Assistive Devices: None Assistive Devices Comment: pt will use readers Review of Systems Review of Systems: The patient denies chest pain, palpitations, shortness of breath, dyspnea on exertion, cough,sore throat, fevers, chills, sweats, nausea, vomiting, diarrhea , constipation, abdominal pain, pelvic pain, blood in urine or stool, dysuria, urinary frequency or urgency, lightheadedness, dizziness, headache, memory loss, loss of consciousness, rash, abnormal bruising or bleeding, imbalance, focal weakness, numbness or tingling in arms or legs, generalized arthralgias or myalgias, back or neck pain, or night sweats. The review of systems is otherwise negative other than for that already noted above, and at least 10 systems have been reviewed. Physical Exam Physical Exam: The patient is awake, alert and oriented 3, well developed and well nourished, normocephalic and atraumatic, lying in bed and in no acute distress. HEENT--PERRL, EOMI, mucous membranes and oropharynx mildly dry. Neck--supple. No JVD. No bruits. Thyroid normal, trachea midline, no adenopathy. Heart--normal S1 and S2. No murmurs, rubs or gallops. Lungs--clear bilaterally, no respiratory distress, no accessory muscle use. Abdomen--normal bowel sounds and soft. Nontender. Nondistended, no hernias or masses, no organomegaly. Extremities--No edema. Dermatologic--normal skin turgor, normal color, no abnormal lymph nodes, no rash. Neurologic--cranial nerves II through XII grossly intact. Rheumatologic--normal range of motion. Mild reproducible pain over dorsum of right foot around second, third and fourth MTPs Psychiatric--normal affect. Results & Data Results & Data Vital Signs (Past 12 Hours) Vital Signs Temp Pulse Pulse Resp BP BP Pulse Ox 02/28/24 18:10 81 18 133/89 97 02/28/24 17:23 77 02/28/24 15:32 36.7 C 100 H 18 121/75 98 O2 Del Method 02/28/24 18:10 Room Air 02/28/24 17:23 02/28/24 15:32 Room Air Laboratory Results Laboratory Results WBC 7.25 K/ul (4.8-10.8) 02/28/24 15:47 RBC 4.74 M/uL (4.20-5.40) 02/28/24 15:47 Hgb 13.6 g/dl (12.0-16.0) 02/28/24 15:47 Hct 40.4 % (37.0-47.0) 02/28/24 15:47 MCV 85.2 fL (80.0-100.0) 02/28/24 15:47 MCH 28.7 pg (25.0-34.0) 02/28/24 15:47 MCHC 33.7 g/dL (32.0-36.0) 02/28/24 15:47 RDW Std Deviation 41.9 fL (36.4-46.3) 02/28/24 15:47 RDW Coeff of Sherwin 13.4 % (11.5-14.5) 02/28/24 15:47 Plt Count 243 K/uL (130-400) 02/28/24 15:47 MPV 11.2 fL (9.4-12.4) 02/28/24 15:47 Immature Gran % (Auto) 0.0 % 02/28/24 15:47 Neut % (Auto) 44.1 % 02/28/24 15:47 Lymph % (Auto) 39.4 % 02/28/24 15:47 [place] % (Auto) 12.1 % 02/28/24 15:47 Eos % (Auto) 3.2 % 02/28/24 15:47 Baso % (Auto) 1.2 % 02/28/24 15:47 Neut # (Auto) 3.19 K/uL (1.40-6.50) 02/28/24 15:47 Lymph # (Auto) 2.86 K/uL (1.20-3.40) 02/28/24 15:47 [place] # (Auto) 0.88 K/uL (0.11-0.59) H 02/28/24 15:47 Eos # (Auto) 0.23 K/uL (0.00-0.50) 02/28/24 15:47 Baso # (Auto) 0.09 K/uL (0.00-0.20) 02/28/24 15:47 Immature Gran # (Auto) 0.00 K/uL (0.01-0.20) L 02/28/24 15:47 Sodium 139 mmol/L (136-145) 02/28/24 15:47 Potassium 3.3 mmol/L (3.5-5.1) L 02/28/24 15:47 Chloride 101 mmol/L (98-107) 02/28/24 15:47 Carbon Dioxide 28 mmol/L (21-32) 02/28/24 15:47 Anion Gap 10 (3-11) 02/28/24 15:47 BUN 49 mg/dl (6-23) H 02/28/24 15:47 Creatinine 2.19 mg/dl (0.6-1.2) H 02/28/24 15:47 Est Cr Clr Drug Dosing 23.5 ml/min 02/28/24 15:47 Est GFR ( Amer) 25.3 ml/min 02/28/24 15:47 Est GFR (Non-Af Amer) 21.8 ml/min 02/28/24 15:47 BUN/Creatinine Ratio 22.4 (10-20) H 02/28/24 15:47 Glucose 105 mg/dl (70-99(Fasting)) H 02/28/24 15:47 POC Glucose 104 mg/dl (70-99) H 02/28/24 22:32 Calcium 10.3 mg/dl (8.6-10.3) 02/28/24 15:47 Total Bilirubin 0.4 mg/dl (0.2-1.0) 02/28/24 15:47 Direct Bilirubin 0.1 mg/dl (0-0.2) 02/28/24 15:47 AST 21 U/L (13-39) 02/28/24 15:47 ALT 18 U/L (7-52) 02/28/24 15:47 Alkaline Phosphatase 112 U/L (34-104) H 02/28/24 15:47 Total Protein 8.0 gm/dl (6.0-8.3) 02/28/24 15:47 Albumin 4.9 gm/dl (3.4-5.0) 02/28/24 15:47 Lipase 138 U/L (11-82) H 02/28/24 15:47 Urine Color Dark Yellow 02/28/24 15:50 Urine Appearance Clear (Clear) 02/28/24 15:50 Urine pH 5.5 (4.5-7.5) 02/28/24 15:50 Ur Specific [place] 1.026 (1.000-1.030) 02/28/24 15:50 Urine Protein Trace (Negative) H 02/28/24 15:50 Urine Glucose (UA) Negative (Negative) 02/28/24 15:50 Urine Ketones Trace (Negative) H 02/28/24 15:50 Urine Blood Negative (Negative) 02/28/24 15:50 Urine Nitrite Negative (Negative) 02/28/24 15:50 Urine Bilirubin Negative (Negative) 02/28/24 15:50 Urine Urobilinogen Negative (Negative) 02/28/24 15:50 Ur Leukocyte Esterase Trace (Negative) H 02/28/24 15:50 Urine WBC (Auto) 0-5 /hpf (0-5) 02/28/24 15:50 Urine RBC (Auto) 0-2 /hpf (0-2) 02/28/24 15:50 U Hyaline Cast (Auto) 11-20 /lpf (0-2) H 02/28/24 15:50 U Epithel Cells (Auto) 0-2 /hpf (0-2) 02/28/24 15:50 Urine Bacteria (Auto) None Seen (None Seen) 02/28/24 15:50 Impressions Abdomen/Pelvis CT 02/28/24 16:30 CT abd pelvis wo con CLINICAL HISTORY: markos nvd TECHNIQUE: Helical axial images of the abdomen and pelvis were obtained. Automated dose lowering techniques and/or adjustment according to patient size were utilized for this exam. This exam was performed without intravenous contrast. CT DOSE: 1092.05 mGy.cm COMPARISON: Comparison is made to CT abdomen pelvis 04/21/2019 FINDINGS: Lower chest: No acute abnormality. Liver: Unremarkable. No focal lesions are seen. Gallbladder and biliary tree: No calcified gallstones. Normal caliber wall. No intra- or extrahepatic biliary ductal dilation. Pancreas: Unremarkable, no focal lesions. Spleen: Unremarkable. Adrenals: Unremarkable. Kidneys and ureters: Nonobstructive nephrolithiasis is seen. Bladder: Limited evaluation due to underdistention. Reproductive organs: Incidental note is made of calcified fibroid. Bowel: A hiatal hernia is seen. Diverticulosis is seen without diverticulitis. Lymph nodes Retroperitoneal: Unremarkable. Pelvic: Unremarkable. Mesenteric: Unremarkable. Peritoneum: Normal. Vessels: Atherosclerotic calcifications are seen. Abdominal wall: Unremarkable. Bones: Degenerative changes in the visualized spine. 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 IMPRESSION: No acute abnormalities and in particular no evidence of bowel obstruction. ACT 112: Negative or not required by law. Electronically signed by: Reji Vicente M.D. 02/28/2024 5:11 PM Code Status & VTE Plan Code Status Full code VTE Prophylaxis Plan VTE Prophylaxis will be ordered: Yes PG Care Time/CCT Total # of Minutes Spent Total Time Spent with Patient: Total time spent is greater than 50% in coordination of care (as documented) at patient's floor/unit and/or counseling patient: Coding Level of Care Code 16722 INT INP/OBS CARE 3/75MIN Diagnoses MARKOS (acute kidney injury) N17.9 Hypokalemia E87.6 Fatigue, unspecified type R53.83 Fatigue type: unspecified Toe pain, right M79.674 Anxiety F41.9 Depression, unspecified depression type F32.9 Depression Type: unspecified Essential hypertension I10 Hypertension type: essential hypertension Type 2 diabetes mellitus without complication, without long-term current use of insulin E11.9 Diabetes mellitus type: type 2 Diabetes mellitus jail insulin use: without rat exterminator use Diabetes mellitus complication status: without complication (3) Fatigue Fatigue type: unspecified Qualified Code(s): R53.83 - Other fatigue (6) Depression Depression Type: unspecified Qualified Code(s): F32.9 - Major depressive disorder, single episode, unspecified (7) Hypertension Hypertension type: essential hypertension Qualified Code(s): I10 - Essential (primary) hypertension (8) Diabetes mellitus Diabetes mellitus type: type 2 Diabetes mellitus rat exterminator insulin use: without jail use Diabetes mellitus complication status: without complicat ion Qualified Code(s): E11.9 - Type 2 diabetes mellitus without complications
[2024-02-28] MEDS ORDERED: ONDANSETRON INJ 2 MG/ML 2 ML VIAL IV PRN (22:24)
[2024-02-28] MEDS ORDERED: DEXTROSE 50% 50 ML SYRINGE IV PRN (22:24)
[2024-02-28] MEDS ORDERED: GLUCOSE 40% GEL 15 GM TUBE PO PRN (22:24)
[2024-02-28] MEDS ORDERED: GLUCAGON FOR INJ 1 MG VIAL SQ PRN (22:24)
[2024-02-28] MEDS ORDERED: CALCIUM LACTATE PO SCH (22:24)
[2024-02-28] MEDS ORDERED: ALBUTEROL HFA 8 GM INHALER INH PRN (22:24)
[2024-02-28] MEDS ORDERED: CARBOHYDRATES FOR HYPOGLYCEMIA PO PRN (22:24)
[2024-02-28] MEDS ORDERED: ACETAMINOPHEN 325 MG TAB PO PRN (22:24)
[2024-02-28] MEDS ORDERED: GLUCOSE 10 TAB/TUBE PO PRN (22:24)
--- NOTE | 2024-02-28 23:31 | Emergency Department Note ---
History of Present Illness General Chief Complaint: Abnormal Labs/Diagnostic Testing Stated Complaint: ABNORMAL LABS Time Seen by Provider: 02/28/24 16:31 History of Present Illness Provider Complaint: + abnormal lab Returns today for: + called because of abnormal lab/test Description of abnormal result: Elevated creatinine Associated symptoms: + nausea, + abdominal pain and + other (Diarrhea); no fever, no chills, no chest pain or no shortness of breath Home Medications Medication Instructions Recorded Confirmed Type cholecalciferol (vitamin D3) 50 2,000 unit PO QAM 06/14/18 02/28/24 History mcg (2,000 unit) tablet (Vitamin D3) folic acid 1 mg tablet 1 mg PO QAM 06/14/18 02/28/24 History magnesium oxide 250 mg PO BID 06/14/18 02/28/24 History multivitamin 1 tab PO QPM 06/14/18 02/28/24 History potassium 99 mg tablet 99 mg PO QPM 04/19/19 02/28/24 History Bifidobacterium infantis 4 mg 12 mg PO QAM 05/04/19 02/28/24 History capsule (Align) albuterol sulfate 90 mcg/actuation 2 puffs inhalation Q4H PRN 11/27/19 02/28/24 Rx aerosol inhaler (Ventolin HFA) shortness of breath or wheezing #18 grams ascorbic acid (vitamin C) 500 mg 500 mg PO QAM 04/20/21 02/28/24 History tablet (Vitamin C) calcium lactate 84 mg (648 mg) 84 mg PO BID 04/20/21 02/28/24 History tablet cetirizine 10 mg tablet 10 mg PO QAM 04/20/21 02/28/24 History omeprazole 20 mg tablet,delayed 20 mg PO QAM 04/20/21 02/28/24 History release triamterene 37.5 1 cap PO QAM #90 caps 04/05/23 02/28/24 Rx mg-hydrochlorothiazide 25 mg capsule venlafaxine 150 mg 300 mg (2 x 150 mg) PO QAM #180 05/16/23 02/28/24 Rx capsule,extended release 24 hr caps adalimumab 40 mg/0.4 mL 40 mg (0.4 mL) subcut Q14D 90 days 09/29/23 02/28/24 Rx subcutaneous pen kit (Aylin(CF) #6 ea Pen) atogepant 60 mg tablet (Qulipta) 60 mg PO DAILY #30 tabs 10/31/23 02/28/24 Rx buspirone 10 mg tablet 10 mg PO BID PRN anxiety #180 tabs 11/16/23 02/28/24 Rx atorvastatin 80 mg tablet 80 mg PO DAILY #90 tabs 01/20/24 02/28/24 Rx glipizide 5 mg tablet, extended 5 mg PO DAILY #30 tabs 02/10/24 02/28/24 Rx release 24 hr lisinopril 20 mg tablet 20 mg PO QPM #90 tabs 02/14/24 02/28/24 Rx Allergies Allergy/AdvReac Type Severity Reaction Status Date / Time cat dander Allergy Unknown HAY FEVER Verified 02/28/24 09:53 fluticasone Allergy Unknown INFLAMED Verified 02/28/24 09:53 AIRWAYS ragweed pollen Allergy Unknown HAY FEVER Verified 02/28/24 09:53 salmeterol Allergy Unknown INFLAMED Verified 02/28/24 09:53 AIRWAYS metformin AdvReac Mild Diarrhea Verified 02/28/24 09:53 baclofen AdvReac Unknown DIZZY, Verified 02/28/24 09:53 NAUSEA, SWEATS AND NIGHTMARES butalbital AdvReac Unknown SWEATS AND Verified 02/28/24 09:53 NIGHTMARES clarithromycin AdvReac Unknown Nausea, Verified 02/28/24 09:53 diarrhea Past Med/Surg History Problem List (Updated 02/28/24 @ 23:[address] MD) MARKOS (acute kidney injury) (Acute) Carpal tunnel syndrome on both sides Fatigue Weight loss Toe pain, right Diarrhea Anxiety RSV (respiratory syncytial virus infection) Paroxysmal cough Depression (Chronic) Hyperlipidemia (Chronic) Hypertension (Chronic) Right knee DJD (Chronic) Mild renal insufficiency (Chronic) Crohn's ileitis (Chronic) Pain in metatarsus Migraine Diabetes mellitus Arthritis of knee, left Medical History History of colon polyps History of COVID-19 08/2020; sob, cough, fever, body aches, chills, loss of taste/smell; resolved Osteopenia Crohn's disease Depression Prediabetes HLD (hyperlipidemia) HTN (hypertension) Osteoarthritis GERD (gastroesophageal reflux disease) Migraine Asthma rare use of PRN inh Surgical History History of total right knee replacement History of total right knee replacement (TKR) History of colonoscopy History of esophagogastroduodenoscopy (EGD) History of appendectomy History of tooth extraction wisdom teeth History of tonsillectomy and adenoidectomy History of endoscopic sinus surgery nasal polyp removed Family History Father , age 92 Family history of diabetes mellitus COPD (chronic obstructive pulmonary disease) Grandmother Family hx of colon cancer maternal Colorectal cancer Aunt Breast cancer Mother , age 92 Ovarian cancer Lung cancer COPD (chronic obstructive pulmonary disease) Other No family history of adverse response to anesthesia Denies family history of Prostate cancer Myocardial infarction Social History Smoking Status: Never smoker Second Hand Exposure: No; Do You Dip or Chew Tobacco: No; Hx Alcohol Use: No Hx Substance Use: No Preferred Language: Salvadorean Communication Ability: Effective Visual Impairment: Limited Hearing Ability: Use of Hearing Aid Paper Inspector Required: No Beliefs That Will Affect Care: None marital status: Current Living Situation: Spouse current occupational status: retired 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 How many Children do You have: 1 Feels Safe at Home: Yes Childhood Exposure to Second-Hand Smoke: Yes Diet: regular caffeine: Yes (soda) during the past year weight has: remained stable Dental Care, Regularly: Yes Physical Activity Frequency: Daily Seatbelt Use: always Sunscreen Use: Yes Assistive Devices: Glasses and Hearing Aid - Bilateral Physical Exam 2 Vital Signs: Vital Signs - 24 hr 02/28/24 15:32 02/28/24 17:23 02/28/24 18:10 Temperature 36.7 C Temperature Source Skin Pulse Rate 100 H 77 Pulse Rate [Apical ] 81 Respiratory Rate 18 18 Respiratory Effort / Characteristics Non-Labored Sponta neous Respiratory Depth Normal Blood Pressure 121/75 Blood Pressure [Ri ght Arm] 133/89 Blood Pressure Jamila n 90 Blood Pressure Jamila n [Right Arm] 103 Blood Pressure Pos ition [Right Arm] Lying Pulse Oximetry 98 97 Oxygen Delivery Me thod Room Air Room Air Sepsis Recent Feve r Within 48 Hours No Sepsis New/Unexpla ined Change in Men kobe Status No Sepsis Action Take n by Nursing No Action Required Physical Exam: Physical Exam GENERAL: She is oriented to person, place, and time. She appears well-developed and well-nourished. She does not appear distressed. HENT: Exam performed. -Head: Normocephalic and atraumatic. -Right Ear: External ear normal. No mastoid erythema -Left Ear: External ear normal. No mastoid erythema -Mouth/Throat: The oropharynx is clear and moist. No trismus in the jaw. No dental abscesses or uvula swelling. No oropharyngeal exudate or tonsillar abscesses. EYES: Conjunctivae and EOM are normal.Right eye exhibits no discharge. Left eye exhibits no discharge. No scleral icterus. NECK: Normal range of motion. Neck supple. No JVD present. No tracheal deviation and normal range of motion present. CV: Normal rate, regular rhythm, normal heart sounds and intact distal pulses. There is no peripheral edema. Palpable radial pulses bue. PULM/CHEST: Effort normal and breath sounds normal. No respiratory distress. No stridor. She has no wheezes. She has no rales. -Chest Wall: She exhibits no tenderness. ABD: The abdomen is soft. Bowel sounds are normal. She has no distension. No mass is present. There is no tenderness. There is no rebound, no guarding, no Thompson's sign and no tenderness at McBurney's point. Rovsig negative MUSC/SKEL: Normal range of motion. There is no peripheral edema, tenderness or deformity. NEURO: Motor and sensation grossly intact. SKIN: Skin is warm and dry. She is not diaphoretic. PSYCH: She has a normal mood and affect. Behavior is normal. Judgment and thought content normal. Course Course 1631: The patient was evaluated in room D1A. A complete history and physical exam was performed Cardiac monitoring: An order was placed for continuous cardiac monitoring. The monitor shows a rate of 80 with sinus rhythm interpreted by me 1800: Vital signs stable. Labs are unremarkable with exception of BUN of 49 and creatinine of 2.19. Last month the patient's creatinine was 1.33. CT of the abdomen pelvis without contrast unremarkable. Patient will be admitted for her MARKOS. Administered Medications Sodium Chloride (Nss) 1,000 mls @ 125 mls/hr IV .Q8H KULDIP Stop: 03/29/24 18:14 Last Admin: 02/28/24 18:14 Dose: 125 mls/hr Documented By: BRIDGETTE Discontinued Medications Sodium Chloride (Nss) 1,000 mls @ 999 mls/hr IV .Q1H1M ONE Stop: 02/28/24 17:29 Last Infusion: 02/28/24 18:14 Dose: Infused Documented By: Admin: 02/28/24 16:59 Dose: 999 mls/hr Documented By: ROSALIE Medical Decision Making Medical Records Attestation: I reviewed the patient's medical records. External medical records reviewed. Patient was seen by her PCP today for diarrhea and had labs to rule out dehydration. They wanted the patient to have a CT scan of her abdomen and be evaluated by GI. Outpatient labs showed a white blood cell count 6.83 hemoglobin of 13.2 creatinine of 2.31 with a BUN of 49. Laboratory Data Attestation: I reviewed the patient's lab results. 02/28/24 15:47 02/28/24 15:47 Lab Results 02/28/24 02/28/24 Range/Units 15:47 15:50 WBC 7.25 (4.8-10.8) K/ul RBC 4.74 (4.20-5.40) M/uL Hgb 13.6 (12.0-16.0) g/dl Hct 40.4 (37.0-47.0) % MCV 85.2 (80.0-100.0) fL MCH 28.7 (25.0-34.0) pg MCHC 33.7 (32.0-36.0) g/dL RDW Std Deviation 41.9 (36.4-46.3) fL RDW Coeff of Sherwin 13.4 (11.5-14.5) % Plt Count 243 (130-400) K/uL MPV 11.2 (9.4-12.4) fL Immature Gran % (Auto) 0.0 % Neut % (Auto) 44.1 % Lymph % (Auto) 39.4 % [place] % (Auto) 12.1 % Eos % (Auto) 3.2 % Baso % (Auto) 1.2 % Neut # (Auto) 3.19 (1.40-6.50) K/uL Lymph # (Auto) 2.86 (1.20-3.40) K/uL Republic # (Auto) 0.88 H (0.11-0.59) K/uL Eos # (Auto) 0.23 (0.00-0.50) K/uL Baso # (Auto) 0.09 (0.00-0.20) K/uL Immature Gran # (Auto) 0.00 L (0.01-0.20) K/uL Sodium 139 (136-145) mmol/L Potassium 3.3 L (3.5-5.1) mmol/L Chloride 101 (98-107) mmol/L Carbon Dioxide 28 (21-32) mmol/L Anion Gap 10 (3-11) BUN 49 H (6-23) mg/dl Creatinine 2.19 H (0.6-1.2) mg/dl Est Cr Clr Drug Dosing 23.5 ml/min Est GFR ( Amer) 25.3 ml/min Est GFR (Non-Af Amer) 21.8 ml/min BUN/Creatinine Ratio 22.4 H (10-20) Glucose 105 H (70-99(Fasting)) mg/dl Calcium 10.3 (8.6-10.3) mg/dl Total Bilirubin 0.4 (0.2-1.0) mg/dl Direct Bilirubin 0.1 (0-0.2) mg/dl AST 21 (13-39) U/L ALT 18 (7-52) U/L Alkaline Phosphatase 112 H (34-104) U/L Total Protein 8.0 (6.0-8.3) gm/dl Albumin 4.9 (3.4-5.0) gm/dl Lipase 138 H (11-82) U/L Urine Color Dark Yellow Urine Appearance Clear (Clear) Urine pH 5.5 (4.5-7.5) Ur Specific [place] 1.026 (1.000-1.030) Urine Protein Trace H (Negative) Urine Glucose (UA) Negative (Negative) Urine Ketones Trace H (Negative) Urine Blood Negative (Negative) Urine Nitrite Negative (Negative) Urine Bilirubin Negative (Negative) Urine Urobilinogen Negative (Negative) Ur Leukocyte Esterase Trace H (Negative) Urine WBC (Auto) 0-5 (0-5) /hpf Urine RBC (Auto) 0-2 (0-2) /hpf U Hyaline Cast (Auto) 11-20 H (0-2) /lpf U Epithel Cells (Auto) 0-2 (0-2) /hpf Urine Bacteria (Auto) None Seen (None Seen) Imaging Data Radiologist's Impression: Abdomen/Pelvis CT 02/28/24 16:30 CT abd pelvis wo con CLINICAL HISTORY: markos nvd TECHNIQUE: Helical axial images of the abdomen and pelvis were obtained. Automated dose lowering techniques and/or adjustment according to patient size were utilized for this exam. This exam was performed without intravenous contrast. CT DOSE: 1092.05 mGy.cm COMPARISON: Comparison is made to CT abdomen pelvis 04/21/2019 FINDINGS: Lower chest: No acute abnormality. Liver: Unremarkable. No focal lesions are seen. Gallbladder and biliary tree: No calcified gallstones. Normal caliber wall. No intra- or extrahepatic biliary ductal dilation. Pancreas: Unremarkable, no focal lesions. Spleen: Unremarkable. Adrenals: Unremarkable. Kidneys and ureters: Nonobstructive nephrolithiasis is seen. Bladder: Limited evaluation due to underdistention. Reproductive organs: Incidental note is made of calcified fibroid. Bowel: A hiatal hernia is seen. Diverticulosis is seen without diverticulitis. Lymph nodes Retroperitoneal: Unremarkable. Pelvic: Unremarkable. Mesenteric: Unremarkable. Peritoneum: Normal. Vessels: Atherosclerotic calcifications are seen. Abdominal wall: Unremarkable. Bones: Degenerative changes in the visualized spine. 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 IMPRESSION: No acute abnormalities and in particular no evidence of bowel obstruction. ACT 112: Negative or not required by law. Electronically signed by: Reji Vicente M.D. 02/28/2024 5:11 PM [facility] Narrative 1631: The patient was evaluated in room D1A. A complete history and physical exam was performed Cardiac monitoring: An order was placed for continuous cardiac monitoring. The monitor shows a rate of 80 with sinus rhythm interpreted by vt 1800: Vital signs stable. Labs are unremarkable with exception of BUN of 49 and creatinine of 2.19. Last month the patient's creatinine was 1.33. CT of the abdomen pelvis without contrast unremarkable. Patient will be admitted for her MARKOS. Impression & Plan MARKOS (acute kidney injury) Discharge Plan Visit Data Chief Complaint: Abnormal Labs/Diagnostic Testing Stated Complaint: ABNORMAL LABS ED Provider: Baldo Street Discharge Problem: MARKOS (acute kidney injury) Patient Disposition: Admitted As Inpatient Discharge Instructions Interventions: ED Discharge Assessment Last Done: 02/28/24 21:53
[2024-02-28] MEDS: MAGNESIUM OXIDE 400 MG TAB PO SCH (23:34)
[2024-02-28] MEDS: INSULIN ASPART PER UNIT CHARGE SC SCH (23:34)
[2024-02-28] MEDS: MULTIVITAMIN TAB PO SCH (23:34)
[2024-02-29 02:06] LABS: Magnesium 2.5 mg/dl (1.7-2.4)
[2024-02-29 06:32] LABS: Basophils # (auto) 0.06 K/uL (0.00-0.20); Basophils % (auto) 0.9 %; Eosinophils # (auto) 0.31 K/uL (0.00-0.50); Eosinophils % (auto) 4.5 %; Hematocrit (blood only) 33.3 % (37.0-47.0); Hemoglobin 11.4 g/dl (12.0-16.0); Lymphocytes # (auto) 2.71 K/uL (1.20-3.40); Lymphocytes % (auto) 39.5 %; Mean Corpuscular Hgb Conc 34.2 g/dL (32.0-36.0); Mean Corpuscular Volume 84.7 fL (80.0-100.0); Mean Platelet Volume 10.6 fL (9.4-12.4); Monocytes # (auto) 0.87 K/uL (0.11-0.59); Monocytes % (auto) 12.7 %; Neutrophils # (auto) 2.91 K/uL (1.40-6.50); Neutrophils % (auto) 42.4 %; Platelet Count 172 K/uL (130-400); RDW Coefficient of Variation 13.2 % (11.5-14.5); Red Blood Count 3.93 M/uL (4.20-5.40); White Blood Count 6.86 K/ul (4.8-10.8)
[2024-02-29 06:47] LABS: Anion Gap 7 (3-11); BUN Creatinine Ratio 25.2 (10-20); Blood Urea Nitrogen 37 mg/dl (6-23); Calcium 9.2 mg/dl (8.6-10.3); Carbon Dioxide 27 mmol/L (21-32); Chloride 108 mmol/L (98-107); Creatinine Clr Calc Pharmacy 35.6 ml/min; Est GFR (African American) 40.9 ml/min; Est GFR (Non-African American) 35.3 ml/min; Glucose 124 mg/dl (70-99(Fasting)); Magnesium 2.1 mg/dl (1.7-2.4); Phosphorus 3.4 mg/dl (2.5-4.9); Potassium 3.6 mmol/L (3.5-5.1); Sodium 142 mmol/L (136-145)
[2024-02-29 07:29] LABS: Estimated Average Glucose 146 mg/dl; Hemoglobin A1C 6.7 % (4.5-5.6)
--- NOTE | 2024-02-29 07:44 | Hospitalist Progress Note ---
Date of Service February 29, 2024 Assessment & Plan (1) MARKOS (acute kidney injury): Plan: Acute kidney injury/hypokalemia- also worsened diarrhea w/ increase in PO magnesium recently, multiple medications changes to DM meds as well Creatinine 2.19 on admission, with base around 1.3 Potassium 3.3, with magnesium pending Hold lisinopril and triamterene/HCTZ Status post 1 L normal saline in the ED Continue NSS at 125 MLS per hour Recheck laboratories in a.m. 02/28 On NSS @ 125cc/hr for now, can decrease to 75cc/hr and monitor diarrhea (2BM this morning) Cr improved, 2.19--> 1.47 . K stable 3.6, mag 2.1 Home lisinopril, triamterene/HCTZ remains on hold for now Monitor BMP/electrolyte replacement as needed See below regarding diarrhea (2) Diarrhea: Plan: Diarrhea/history of Crohn's ileitis- She reports that she has not had a flareup of Crohn's disease for several years She does follow with Dr. Price, and has a colonoscopy scheduled for end may, which got rescheduled from earlier this summer Patient did have some improvement with cessation of metformin on 01/22, and worsening with this addition of Jardiance on 02/07 She will continue with Adalimumab per GI in the outpatient setting CT scan of abdomen pelvis without acute findings STOPPING MAG OXIDE, can order once daily SLOW MAG. Did report increased diarrhea w/ increasing mag supplementation (tolerating 500gm dose but 1000 causing diarrhea) -->Discussed w/ patient if needing ongoing mag at dc should utilize SLOW MAG, further mag oxide DISCONTINUED (also takes for hx migraines) GI consulted for below Stool PCR ordered, giardia +ESR/CRP to AM labs (GI changed to today) Follow up stool studies Questran added by GI, monitor for improvement (3) Hypertension: Plan: Lisinopril, HCTZ-triamterene on HOLD given MARKOS as above, improving on IVF Per patient, no hx CHF but takes for BP management- discussed likely not best to continue HCTZ/triameterne if needing for BP to prevent dehydration (4) Diabetes mellitus: Plan: Diabetes mellitus- Hold glipizide Placed on Accu-Cheks with NovoLog SSI Monitor (5) Hypokalemia: Plan: improved on repeat, continue to monitor w/ diarrheal losses. (6) Fatigue: Plan: improving w/ above. continue to monitor (7) Phalanx fracture, foot: Plan: denied any trauma but having some pain to RIGHT foot, 3rd toe. does do a lot of work outside Xray on admission noting "age-indeterminate fracture at the base of the third digit proximal phalanx. Correlation with point tenderness is recommended." Reports improvement since not putting weight on, WBAT/pain control/elevation. Can consider jose antonio taping if needed but appearing stable at this time (8) Anxiety: Plan: stable continue home venlafaxine, buspar (9) Depression: Plan: stable, continue home meds Plan continued inpatient stay Admission and Anticipated Discharge Date Admission Date: February 28, 2024 Supervising Physician Co-Signing Physician Notes The patient was not seen by me. The chart was reviewed. Case discussed with DENIZ Del Rosario. Agree with assessment and plan Subjective Evaluated this morning, sitting up in bed, no acute distress, reports feeling much better than admission. Two bowel movements this morning, diarrhea, prior to stool studies ordered but discussed to collect w/ next movement. GI added ESR/CRP, continues on IVF for dehydration and reports not having taken much antidiarrheals except occassional imodium but then reports causes her constipation. Will monitor stool studies, supportive care. Has been stable w/ regards to her Crohn's for quite a while, no blood in stool reported or heavy NSAID use, on Humira at baseline. Does have some tenderness to dorsum of her right foot, minimal swelling noted however but denied trauma. Xray obtained and appears with age-indeterminate fr acture at the base of the third digit proximal phalax, right in region of tenderness. Pain control available, does report improvement in discomfort since not walking on this. Physical Exam Physical Exam: General: 73yo female sitting up in the bed, NAD Head atraumatic, normocephalic, mm slightly dry, trachea midline Resp: even/unlabored, no w/c/r, on room air CV: RRR, no significant m/r/g, no pitting edema/calf tenderness GI: +BS, slight distension but soft/nontender no rivera MSK/Neuro: nonfocal, answering questions appropriately slight tenderness/edema to dorsum RIGHT foot around 3rd digit at the base of phalanx, no significant ecchymosis/bruising, no lesions/openings/redness Psych: AOx3, cooperative with exam Results & Data Results & Data Vital Signs (Past 12 Hours) Vital Signs Temp Pulse Pulse Resp BP BP Pulse Ox 02/29/24 02:11 36.6 C 81 16 151/72 H 98 02/28/24 22:47 73 02/28/24 22:30 36.5 C 80 17 155/88 H 99 02/28/24 22:10 36.5 C 80 16 151/88 H 99 02/28/24 21:03 81 O2 Del Method 02/29/24 02:11 Room Air 02/28/24 22:47 02/28/24 22:30 Room Air 02/28/24 22:10 Room Air 02/28/24 21:03 Laboratory Results 02/29/24 02/29/24 02/29/24 Range/Units 12:30 11:23 07:15 WBC (4.8-10.8) K/ul RBC (4.20-5.40) M/uL Hgb (12.0-16.0) g/dl Hct (37.0-47.0) % MCV (80.0-100.0) fL MCH (25.0-34.0) pg MCHC (32.0-36.0) g/dL RDW Std Deviation (36.4-46.3) fL RDW Coeff of Sherwin (11.5-14.5) % Plt Count (130-400) K/uL MPV (9.4-12.4) fL Immature Gran % (Auto) % Neut % (Auto) % Lymph % (Auto) % Edmonson % (Auto) % Eos % (Auto) % Baso % (Auto) % Neut # (Auto) (1.40-6.50) K/uL Lymph # (Auto) (1.20-3.40) K/uL Edmonson # (Auto) (0.11-0.59) K/uL Eos # (Auto) (0.00-0.50) K/uL Baso # (Auto) (0.00-0.20) K/uL Immature Gran # (Auto) (0.01-0.20) K/uL ESR (0-30) mm/hr Sodium (136-145) mmol/L Potassium (3.5-5.1) mmol/L Chloride (98-107) mmol/L Carbon Dioxide (21-32) mmol/L Anion Gap (3-11) BUN (6-23) mg/dl Creatinine (0.6-1.2) mg/dl Est Cr Clr Drug Dosing ml/min Est GFR ( Amer) ml/min Est GFR (Non-Af Amer) ml/min BUN/Creatinine Ratio (10-20) Glucose (70-99(Fasting)) mg/dl POC Glucose 119 H 126 H (70-99) mg/dl Estimat Average Glucose mg/dl Hemoglobin A1c (4.5-5.6) % Calcium (8.6-10.3) mg/dl Phosphorus (2.5-4.9) mg/dl Magnesium (1.7-2.4) mg/dl Iron (35-150) mcg/dl TIBC (250-450) mcg/dl Unsaturated IBC (155-355) mcg/dl Transferrin % Sat (15-50) % Ferritin (8-388) ng/ml Total Bilirubin (0.2-1.0) mg/dl Direct Bilirubin (0-0.2) mg/dl AST (13-39) U/L ALT (7-52) U/L Alkaline Phosphatase (34-104) U/L C-Reactive Protein (0-0.5) mg/dl Total Protein (6.0-8.3) gm/dl Albumin (3.4-5.0) gm/dl Lipase (11-82) U/L Urine Color Urine Appearance (Clear) Urine pH (4.5-7.5) Ur Specific T[place] (1.000-1.030) Urine Protein (Negative) Urine Glucose (UA) (Negative) Urine Ketones (Negative) Urine Blood (Negative) Urine Nitrite (Negative) Urine Bilirubin (Negative) Urine Urobilinogen (Negative) Ur Leukocyte Esterase (Negative) Urine WBC (Auto) (0-5) /hpf Urine RBC (Auto) (0-2) /hpf U Hyaline Cast (Auto) (0-2) /lpf U Epithel Cells (Auto) (0-2) /hpf Urine Bacteria (Auto) (None Seen) Stl C. cayetanensis PCR Pending Stool Rotavirus A PCR Pending Stl Adenov F 40/41 PCR Pending Stool Astrovirus (PCR) Pending Stool Campylobacter PCR Pending Stool Cryptosporidium PCR Pending Stl E.coli Shiga Tox PCR Pending Stl Enterotoxigenic E PCR Pending Stool EAEC (PCR) Pending Stl E. histolytica PCR Pending Stool Giardia Lamblia PCR Pending Stool Salmonella PCR Pending Stool Sapovirus (PCR) Pending Stl P. shigelloides PCR Pending Stl Shigella/EIEC PCR Pending St Y.enterocolitica PCR Pending Stool Vibrio (PCR) Pending Stl Vibrio cholerae PCR Pending Stl Norovirus GI/GII PCR Pending Giardia Antigen Pending 02/29/24 02/28/24 02/28/24 Range/Units 05:54 22:32 15:50 WBC 6.86 (4.8-10.8) K/ul RBC 3.93 L (4.20-5.40) M/uL Hgb 11.4 L (12.0-16.0) g/dl Hct 33.3 L (37.0-47.0) % MCV 84.7 (80.0-100.0) fL MCH 29.0 (25.0-34.0) pg MCHC 34.2 (32.0-36.0) g/dL RDW Std Deviation 41.0 (36.4-46.3) fL RDW Coeff of Sherwin 13.2 (11.5-14.5) % Plt Count 172 (130-400) K/uL MPV 10.6 (9.4-12.4) fL Immature Gran % (Auto) 0.0 % Neut % (Auto) 42.4 % Lymph % (Auto) 39.5 % Edmonson % (Auto) 12.7 % Eos % (Auto) 4.5 % Baso % (Auto) 0.9 % Neut # (Auto) 2.91 (1.40-6.50) K/uL Lymph # (Auto) 2.71 (1.20-3.40) K/uL Edmonson # (Auto) 0.87 H (0.11-0.59) K/uL Eos # (Auto) 0.31 (0.00-0.50) K/uL Baso # (Auto) 0.06 (0.00-0.20) K/uL Immature Gran # (Auto) 0.00 L (0.01-0.20) K/uL ESR 6 (0-30) mm/hr Sodium 142 (136-145) mmol/L Potassium 3.6 (3.5-5.1) mmol/L Chloride 108 H (98-107) mmol/L Carbon Dioxide 27 (21-32) mmol/L Anion Gap 7 (3-11) BUN 37 H (6-23) mg/dl Creatinine 1.47 H D (0.6-1.2) mg/dl Est Cr Clr Drug Dosing 35.6 ml/min Est GFR ( Amer) 40.9 ml/min Est GFR (Non-Af Amer) 35.3 ml/min BUN/Creatinine Ratio 25.2 H (10-20) Glucose 124 H (70-99(Fasting)) mg/dl POC Glucose 104 H (70-99) mg/dl Estimat Average Glucose 146 mg/dl Hemoglobin A1c 6.7 H (4.5-5.6) % Calcium 9.2 (8.6-10.3) mg/dl Phosphorus 3.4 (2.5-4.9) mg/dl Magnesium 2.1 (1.7-2.4) mg/dl Iron 60 (35-150) mcg/dl TIBC 301 (250-450) mcg/dl Unsaturated IBC 241 (155-355) mcg/dl Transferrin % Sat 20 (15-50) % Ferritin 140.2 (8-388) ng/ml Total Bilirubin (0.2-1.0) mg/dl Direct Bilirubin (0-0.2) mg/dl AST (13-39) U/L ALT (7-52) U/L Alkaline Phosphatase (34-104) U/L C-Reactive Protein < 0.50 (0-0.5) mg/dl Total Protein (6.0-8.3) gm/dl Albumin 4.0 (3.4-5.0) gm/dl Lipase (11-82) U/L Urine Color Dark Yellow Urine Appearance Clear (Clear) Urine pH 5.5 (4.5-7.5) Ur Specific T[place] 1.026 (1.000-1.030) Urine Protein Trace H (Negative) Urine Glucose (UA) Negative (Negative) Urine Ketones Trace H (Negative) Urine Blood Negative (Negative) Urine Nitrite Negative (Negative) Urine Bilirubin Negative (Negative) Urine Urobilinogen Negative (Negative) Ur Leukocyte Esterase Trace H (Negative) Urine WBC (Auto) 0-5 (0-5) /hpf Urine RBC (Auto) 0-2 (0-2) /hpf U Hyaline Cast (Auto) 11-20 H (0-2) /lpf U Epithel Cells (Auto) 0-2 (0-2) /hpf Urine Bacteria (Auto) None Seen (None Seen) Stl C. cayetanensis PCR Stool Rotavirus A PCR Stl Adenov F PCR Stool Astrovirus (PCR) Stool Campylobacter PCR Stool Cryptosporidium PCR Stl E.coli Shiga Tox PCR Stl Enterotoxigenic E PCR Stool EAEC (PCR) Stl E. histolytica PCR Stool Giardia Lamblia PCR Stool Salmonella PCR Stool Sapovirus (PCR) Stl P. shigelloides PCR Stl Shigella/EIEC PCR St Y.enterocolitica PCR Stool Vibrio (PCR) Stl Vibrio cholerae PCR Stl Norovirus GI/GII PCR Giardia Antigen 02/28/24 Range/Units 15:47 WBC 7.25 (4.8-10.8) K/ul RBC 4.74 (4.20-5.40) M/uL Hgb 13.6 (12.0-16.0) g/dl Hct 40.4 (37.0-47.0) % MCV 85.2 (80.0-100.0) fL MCH 28.7 (25.0-34.0) pg MCHC 33.7 (32.0-36.0) g/dL RDW Std Deviation 41.9 (36.4-46.3) fL RDW Coeff of Sherwin 13.4 (11.5-14.5) % Plt Count 243 (130-400) K/uL MPV 11.2 (9.4-12.4) fL Immature Gran % (Auto) 0.0 % Neut % (Auto) 44.1 % Lymph % (Auto) 39.4 % Edmonson % (Auto) 12.1 % Eos % (Auto) 3.2 % Baso % (Auto) 1.2 % Neut # (Auto) 3.19 (1.40-6.50) K/uL Lymph # (Auto) 2.86 (1.20-3.40) K/uL Edmonson # (Auto) 0.88 H (0.11-0.59) K/uL Eos # (Auto) 0.23 (0.00-0.50) K/uL Baso # (Auto) 0.09 (0.00-0.20) K/uL Immature Gran # (Auto) 0.00 L (0.01-0.20) K/uL ESR (0-30) mm/hr Sodium 139 (136-145) mmol/L Potassium 3.3 L (3.5-5.1) mmol/L Chloride 101 (98-107) mmol/L Carbon Dioxide 28 (21-32) mmol/L Anion Gap 10 (3-11) BUN 49 H (6-23) mg/dl Creatinine 2.19 H (0.6-1.2) mg/dl Est Cr Clr Drug Dosing 23.5 ml/min Est GFR ( Amer) 25.3 ml/min Est GFR (Non-Af Amer) 21.8 ml/min BUN/Creatinine Ratio 22.4 H (10-20) Glucose 105 H (70-99(Fasting)) mg/dl POC Glucose (70-99) mg/dl Estimat Average Glucose mg/dl Hemoglobin A1c (4.5-5.6) % Calcium 10.3 (8.6-10.3) mg/dl Phosphorus (2.5-4.9) mg/dl Magnesium 2.5 H (1.7-2.4) mg/dl Iron (35-150) mcg/dl TIBC (250-450) mcg/dl Unsaturated IBC (155-355) mcg/dl Transferrin % Sat (15-50) % Ferritin (8-388) ng/ml Total Bilirubin 0.4 (0.2-1.0) mg/dl Direct Bilirubin 0.1 (0-0.2) mg/dl AST 21 (13-39) U/L ALT 18 (7-52) U/L Alkaline Phosphatase 112 H (34-104) U/L C-Reactive Protein (0-0.5) mg/dl Total Protein 8.0 (6.0-8.3) gm/dl Albumin 4.9 (3.4-5.0) gm/dl Lipase 138 H (11-82) U/L Urine Color Urine Appearance (Clear) Urine pH (4.5-7.5) Ur Specific [place] (1.000-1.030) Urine Protein (Negative) Urine Glucose (UA) (Negative) Urine Ketones (Negative) Urine Blood (Negative) Urine Nitrite (Negative) Urine Bilirubin (Negative) Urine Urobilinogen (Negative) Ur Leukocyte Esterase (Negative) Urine WBC (Auto) (0-5) /hpf Urine RBC (Auto) (0-2) /hpf U Hyaline Cast (Auto) (0-2) /lpf U Epithel Cells (Auto) (0-2) /hpf Urine Bacteria (Auto) (None Seen) Stl C. cayetanensis PCR Stool Rotavirus A PCR Stl Adenov F 40/41 PCR Stool Astrovirus (PCR) Stool Campylobacter PCR Stool Cryptosporidium PCR Stl E.coli Shiga Tox PCR Stl Enterotoxigenic E PCR Stool EAEC (PCR) Stl E. histolytica PCR Stool Giardia Lamblia PCR Stool Salmonella PCR Stool Sapovirus (PCR) Stl P. shigelloides PCR Stl Shigella/EIEC PCR St Y.enterocolitica PCR Stool Vibrio (PCR) Stl Vibrio cholerae PCR Stl Norovirus GI/GII PCR Giardia Antigen Diagnostic Findings Abdomen/Pelvis CT 02/28/24 16:30 CT abd pelvis wo con CLINICAL HISTORY: markos nvd TECHNIQUE: Helical axial images of the abdomen and pelvis were obtained. Automated dose lowering techniques and/or adjustment according to patient size were utilized for this exam. This exam was performed without intravenous contrast. CT DOSE: 1092.05 mGy.cm COMPARISON: Comparison is made to CT abdomen pelvis 04/21/2019 FINDINGS: Lower chest: No acute abnormality. Liver: Unremarkable. No focal lesions are seen. Gallbladder and biliary tree: No calcified gallstones. Normal caliber wall. No intra- or extrahepatic biliary ductal dilation. Pancreas: Unremarkable, no focal lesions. Spleen: Unremarkable. Adrenals: Unremarkable. Kidneys and ureters: Nonobstructive nephrolithiasis is seen. Bladder: Limited evaluation due to underdistention. Reproductive organs: Incidental note is made of calcified fibroid. Bowel: A hiatal hernia is seen. Diverticulosis is seen without diverticulitis. Lymph nodes Retroperitoneal: Unremarkable. Pelvic: Unremarkable. Mesenteric: Unremarkable. Peritoneum: Normal. Vessels: Atherosclerotic calcifications are seen. Abdominal wall: Unremarkable. Bones: Degenerative changes in the visualized spine. 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 IMPRESSION: No acute abnormalities and in particular no evidence of bowel obstruction. ACT 112: Negative or not required by law. Electronically signed by: Reji Vicente M.D. 02/28/2024 5:11 PM Foot X-Ray 02/28/24 20:00 XR foot RT min 3V routine CLINICAL HISTORY: pain and swelling distal dorsum base of toes TECHNIQUE: 3 views of the right foot were obtained. Comparison: None available at the time of this dictation. FINDINGS: Fracture at the base of the third digit proximal phalanx is seen, of indeterminate age. Surrounding calcific densities are seen. Degenerative changes are seen. Plantar and Achilles enthesophytes are seen. Soft tissue swelling is seen about the foot. IMPRESSION: There is age-indeterminate fracture at the base of the third digit proximal phalanx. Correlation with point tenderness is recommended. ACT 112: Negative or not required by law. Electronically signed by: Reji Vicente M.D. 02/29/2024 9:15 AM PG Care Time/CCT Total # of Minutes Spent Total Time Spent with Patient: Total time spent is greater than 50% in coordination of care (as documented) at patient's floor/unit and/or counseling patient: Coding Level of Care Code 25193 SUB INP/OBS CARE 3/50MIN Diagnoses MARKOS (acute kidney injury) N17.9 Diarrhea, unspecified type R19.7 Diarrhea type: unspecified type Essential hypertension I10 Hypertension type: essential hypertension Type 2 diabetes mellitus without complication, without long-term current use of insulin E11.9 Diabetes mellitus complication status: without complication Diabetes mellitus prison insulin use: without prison use Diabetes mellitus type: type 2 Hypokalemia E87.6 Fatigue, unspecified type R53.83 Fatigue type: unspecified Phalanx fracture, foot [id number] Anxiety F41.9 Depression, unspecified depression type F32.9 Depression Type: unspecified (2) Diarrhea Diarrhea type: unspecified type Qualified Code(s): R19.7 - Diarrhea, unspecified (3) Hypertension Hypertension type: essential hypertension Qualified Code(s): I10 - Essential (primary) hypertension (4) Diabetes mellitus Diabetes mellitus complication status: without complication Diabetes mellitus prison insulin use: without prison use Diabetes mellitus type: type 2 Qualified Code(s): E11.9 - Type 2 diabetes mellitus without complications (6) Fatigue Fatigue type: unspecified Qualified Code(s): R53.83 - Other fatigue (9) Depression Depression Type: unspecified Qualified Code(s): F32.9 - Major depressive disorder, single episode, unspecified
[2024-02-29 08:21] LABS: Iron 60 mcg/dl (35-150); Total Iron Binding Cap Calc 301 mcg/dl (250-450); Transferrin (FE) Percent Satur 20 % (15-50); Unsaturated Iron Binding Cap 241 mcg/dl (155-355)
[2024-02-29] MEDS: PANTOprazole 40 MG TAB PO SCH (08:21)
[2024-02-29] MEDS: VENLAFAXINE HCL XR 150 MG CAPXR PO SCH (08:21)
[2024-02-29] MEDS: ATORVASTATIN 40 MG TAB PO SCH (08:22)
[2024-02-29] MEDS: CHOLECALCIFEROL 25 MCG (1000 UNITS) TAB PO SCH (08:22)
[2024-02-29] MEDS: CETIRIZINE HCL 10 MG TABLET PO SCH (08:22)
[2024-02-29] MEDS: FOLIC ACID 1 MG TAB PO SCH (08:22)
[2024-02-29 08:41] LABS: Ferritin 140.2 ng/ml (8-388)
--- NOTE | 2024-02-29 09:16 | XRay Report ---
XR foot RT min 3V routine CLINICAL HISTORY: pain and swelling distal dorsum base of toes TECHNIQUE: 3 views of the right foot were obtained. Comparison: None available at the time of this dictation. FINDINGS: Fracture at the base of the third digit proximal phalanx is seen, of indeterminate age. Surrounding c alcific densities are seen. Degenerative changes are seen. Plantar and Achilles enthesophytes are see n. Soft tissue swelling is seen about the foot. IMPRESSION: There is age-indeterminate fracture at the base of the third digit proximal phalanx. Correlation with point tenderness is recommended. ACT 112: Negative or not required by law. Electronically signed by: Reji Vicente M.D. 02/29/2024 9:15 AM
--- NOTE | 2024-02-29 10:51 | Gastrointestinal Consultation ---
Date of Consultation February 29, 2024 Assessment & Plan (1) MARKOS (acute kidney injury): 73 year old female with history of crohn's ileitis on Humira admitted with 8 weeks of loose stools and MARKOS, fecal calprotectin negative, c.diff, Campylobacter/salmonella/shigella negative in January 2024. CTAP without any obvious inflammatory changes Check CRP/ESR Arrange full stool panel Trial of Questran 2 g once daily Continue humira as ordered Thank you for allowing us to participate in the care of this patient. Please call with any acute changes, questions or concerns. Please see addendum below with additional recommendation from my supervising physician. I spent a total of 60 minutes on the date of service in review of patient's record, and previously obtained information in person and appropriate medical visit, discussion and education of plan, with patient and/or caregiver, placing orders for tests/refer ral/procedures as medically necessary and documentation of pertinent clinical information in patient's medical records for their visit today. Supervising Physician Co-Signing Physician Notes I examined the patient and reviewed patient's chart , laboratory data and imaging studies. I agree with with assessment and plan of care as suggested by advanced practice provider. To start Questran for diarrhea. Exacerbation of Crohn's disease unlikely given recent normal calprotectin and negative CAT scan. If diarrhea continues to consider repeat colonoscopy with biopsies to rule out microscopic colitis. This can be done as an outpatient. Will follow as an outpatient in few weeks. History of Present Illness Reason for Consultation: diarrhea, hx crohn's Requesting Physician: Pau Attending Physician: Shree Mai MD History of Present Illness 73 year old female with history of Crohn's ileitis on humira every other week who is admitted w/ about a 2 month history of diarrhea - GI was asked to evaluate. Notes she has had about 3-5 large volume loose stools daily for the majority of the last 8 weeks. She had outpatient stool testing done which was negative. Consideration was given to medication induced diarrhea, metformin was D/C however diarrhea has largely remained unchanged. Ultimately admitted after outpatient labs showed MARKOS. She has not tried any anti-diarrheals. 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 Colonoscopy 2020: One 4 mm polyp in the ascending colon, removed with a cold snare. Resected and retrieved. - Non-bleeding internal hemorrhoids. - Several random biopsies were obtained in the entire colon Allergies Allergy/AdvReac Type Severity Reaction Status Date / Time cat dander Allergy Unknown HAY FEVER Verified 02/28/24 09:53 fluticasone Allergy Unknown INFLAMED Verified 02/28/24 09:53 AIRWAYS ragweed pollen Allergy Unknown HAY FEVER Verified 02/28/24 09:53 salmeterol Allergy Unknown INFLAMED Verified 02/28/24 09:53 AIRWAYS metformin AdvReac Mild Diarrhea Verified 02/28/24 09:53 baclofen AdvReac Unknown DIZZY, Verified 02/28/24 09:53 NAUSEA, SWEATS AND NIGHTMARES butalbital AdvReac Unknown SWEATS AND Verified 02/28/24 09:53 NIGHTMARES clarithromycin AdvReac Unknown Nausea, Verified 02/28/24 09:53 diarrhea Home Medications Medication Instructions Recorded Confirmed Type cholecalciferol (vitamin D3) 50 2,000 unit PO QAM 06/14/18 02/28/24 History mcg (2,000 unit) tablet (Vitamin D3) folic acid 1 mg tablet 1 mg PO QAM 06/14/18 02/28/24 History magnesium oxide 250 mg PO BID 06/14/18 02/28/24 History multivitamin 1 tab PO QPM 06/14/18 02/28/24 History potassium 99 mg tablet 99 mg PO QPM 04/19/19 02/28/24 History Bifidobacterium infantis 4 mg 12 mg PO QAM 05/04/19 02/28/24 History capsule (Align) albuterol sulfate 90 mcg/actuation 2 puffs inhalation Q4H PRN 11/27/19 02/28/24 Rx aerosol inhaler (Ventolin HFA) shortness of breath or wheezing #18 grams ascorbic acid (vitamin C) 500 mg 500 mg PO QAM 04/20/21 02/28/24 History tablet (Vitamin C) calcium lactate 84 mg (648 mg) 84 mg PO BID 04/20/21 02/28/24 History tablet cetirizine 10 mg tablet 10 mg PO QAM 04/20/21 02/28/24 History omeprazole 20 mg tablet,delayed 20 mg PO QAM 04/20/21 02/28/24 History release triamterene 37.5 1 cap PO QAM #90 caps 04/05/23 02/28/24 Rx mg-hydrochlorothiazide 25 mg capsule venlafaxine 150 mg 300 mg (2 x 150 mg) PO QAM #180 05/16/23 02/28/24 Rx capsule,extended release 24 hr caps adalimumab 40 mg/0.4 mL 40 mg (0.4 mL) subcut Q14D 90 days 09/29/23 02/28/24 Rx subcutaneous pen kit (Humira(CF) #6 ea Pen) atogepant 60 mg tablet (Qulipta) 60 mg PO DAILY #30 tabs 10/31/23 02/28/24 Rx buspirone 10 mg tablet 10 mg PO BID PRN anxiety #180 tabs 11/16/23 02/28/24 Rx atorvastatin 80 mg tablet 80 mg PO DAILY #90 tabs 01/20/24 02/28/24 Rx glipizide 5 mg tablet, extended 5 mg PO DAILY #30 tabs 02/10/24 02/28/24 Rx release 24 hr lisinopril 20 mg tablet 20 mg PO QPM #90 tabs 02/14/24 02/28/24 Rx Patient History Medical History History of colon polyps History of COVID-19 08/2020; sob, cough, fever, body aches, chills, loss of taste/smell; resolved Osteopenia Crohn's disease Depression Prediabetes HLD (hyperlipidemia) HTN (hypertension) Osteoarthritis GERD (gastroesophageal reflux disease) Migraine Asthma rare use of PRN inh Surgical History History of total right knee replacement History of total right knee replacement (TKR) History of colonoscopy History of esophagogastroduodenoscopy (EGD) History of appendectomy History of tooth extraction wisdom teeth History of tonsillectomy and adenoidectomy History of endoscopic sinus surgery nasal polyp removed Family History Father , age 92 Family history of diabetes mellitus COPD (chronic obstructive pulmonary disease) Grandmother Family hx of colon cancer maternal Colorectal cancer Aunt Breast cancer Mother , age 92 Ovarian cancer Lung cancer COPD (chronic obstructive pulmonary disease) Other No family history of adverse response to anesthesia Denies family history of Prostate cancer Myocardial infarction Social History Smoking Status: Never smoker Second Hand Exposure: No; Do You Dip or Chew Tobacco: No; Hx Alcohol Use: No Hx Substance Use: No Preferred Language: Icelandic Communication Ability: Effective Visual Impairment: Limited Hearing Ability: Use of Hearing Aid Back Wedger Required: No Beliefs That Will Affect Care: None marital status: Current Living Situation: Spouse current occupational status: retired 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 Physical Exam Constitutional: WD/WN, vitals as above Respiratory: normal respiratory effort, lungs clear to auscultation Cardiovascular: Rate/Rhythm: regular rate and regular rhythm Gastrointestinal (Abdomen): normal bowel sounds, soft, nontender, no hepatosplenomegaly Skin: no rashes, warm and dry Results & Data Vital Signs (Past 12 Hours) Vital Signs Temp Pulse Resp BP Pulse Ox O2 Del Method 02/29/24 08:03 36.5 C 86 18 147/78 H 96 Room Air 02/29/24 02:11 36.6 C 81 16 151/72 H 98 Room Air Laboratory Results 02/29/24 02/29/24 02/28/24 Range/Units 07:15 05:54 22:32 WBC 6.86 (4.8-10.8) K/ul RBC 3.93 L (4.20-5.40) M/uL Hgb 11.4 L (12.0-16.0) g/dl Hct 33.3 L (37.0-47.0) % MCV 84.7 (80.0-100.0) fL MCH 29.0 (25.0-34.0) pg MCHC 34.2 (32.0-36.0) g/dL RDW Std Deviation 41.0 (36.4-46.3) fL RDW Coeff of Sherwin 13.2 (11.5-14.5) % Plt Count 172 (130-400) K/uL MPV 10.6 (9.4-12.4) fL Immature Gran % (Auto) 0.0 % Neut % (Auto) 42.4 % Lymph % (Auto) 39.5 % Dillon % (Auto) 12.7 % Eos % (Auto) 4.5 % Baso % (Auto) 0.9 % Neut # (Auto) 2.91 (1.40-6.50) K/uL Lymph # (Auto) 2.71 (1.20-3.40) K/uL Dillon # (Auto) 0.87 H (0.11-0.59) K/uL Eos # (Auto) 0.31 (0.00-0.50) K/uL Baso # (Auto) 0.06 (0.00-0.20) K/uL Immature Gran # (Auto) 0.00 L (0.01-0.20) K/uL Sodium 142 (136-145) mmol/L Potassium 3.6 (3.5-5.1) mmol/L Chloride 108 H (98-107) mmol/L Carbon Dioxide 27 (21-32) mmol/L Anion Gap 7 (3-11) BUN 37 H (6-23) mg/dl Creatinine 1.47 H D (0.6-1.2) mg/dl Est Cr Clr Drug Dosing 35.6 ml/min Est GFR ( Amer) 40.9 ml/min Est GFR (Non-Af Amer) 35.3 ml/min BUN/Creatinine Ratio 25.2 H (10-20) Glucose 124 H (70-99(Fasting)) mg/dl POC Glucose 126 H 104 H (70-99) mg/dl Estimat Average Glucose 146 mg/dl Hemoglobin A1c 6.7 H (4.5-5.6) % Calcium 9.2 (8.6-10.3) mg/dl Phosphorus 3.4 (2.5-4.9) mg/dl Magnesium 2.1 (1.7-2.4) mg/dl Iron 60 (35-150) mcg/dl TIBC 301 (250-450) mcg/dl Unsaturated IBC 241 (155-355) mcg/dl Transferrin % Sat 20 (15-50) % Ferritin 140.2 (8-388) ng/ml Total Bilirubin (0.2-1.0) mg/dl Direct Bilirubin (0-0.2) mg/dl AST (13-39) U/L ALT (7-52) U/L Alkaline Phosphatase (34-104) U/L Total Protein (6.0-8.3) gm/dl Albumin 4.0 (3.4-5.0) gm/dl Lipase (11-82) U/L Urine Color Urine Appearance (Clear) Urine pH (4.5-7.5) Ur Specific [place] (1.000-1.030) Urine Protein (Negative) Urine Glucose (UA) (Negative) Urine Ketones (Negative) Urine Blood (Negative) Urine Nitrite (Negative) Urine Bilirubin (Negative) Urine Urobilinogen (Negative) Ur Leukocyte Esterase (Negative) Urine WBC (Auto) (0-5) /hpf Urine RBC (Auto) (0-2) /hpf U Hyaline Cast (Auto) (0-2) /lpf U Epithel Cells (Auto) (0-2) /hpf Urine Bacteria (Auto) (None Seen) 02/28/24 02/28/24 Range/Units 15:50 15:47 WBC 7.25 (4.8-10.8) K/ul RBC 4.74 (4.20-5.40) M/uL Hgb 13.6 (12.0-16.0) g/dl Hct 40.4 (37.0-47.0) % MCV 85.2 (80.0-100.0) fL MCH 28.7 (25.0-34.0) pg MCHC 33.7 (32.0-36.0) g/dL RDW Std Deviation 41.9 (36.4-46.3) fL RDW Coeff of Sherwin 13.4 (11.5-14.5) % Plt Count 243 (130-400) K/uL MPV 11.2 (9.4-12.4) fL Immature Gran % (Auto) 0.0 % Neut % (Auto) 44.1 % Lymph % (Auto) 39.4 % Dillon % (Auto) 12.1 % Eos % (Auto) 3.2 % Baso % (Auto) 1.2 % Neut # (Auto) 3.19 (1.40-6.50) K/uL Lymph # (Auto) 2.86 (1.20-3.40) K/uL Dillon # (Auto) 0.88 H (0.11-0.59) K/uL Eos # (Auto) 0.23 (0.00-0.50) K/uL Baso # (Auto) 0.09 (0.00-0.20) K/uL Immature Gran # (Auto) 0.00 L (0.01-0.20) K/uL Sodium 139 (136-145) mmol/L Potassium 3.3 L (3.5-5.1) mmol/L Chloride 101 (98-107) mmol/L Carbon Dioxide 28 (21-32) mmol/L Anion Gap 10 (3-11) BUN 49 H (6-23) mg/dl Creatinine 2.19 H (0.6-1.2) mg/dl Est Cr Clr Drug Dosing 23.5 ml/min Est GFR ( Amer) 25.3 ml/min Est GFR (Non-Af Amer) 21.8 ml/min BUN/Creatinine Ratio 22.4 H (10-20) Glucose 105 H (70-99(Fasting)) mg/dl POC Glucose (70-99) mg/dl Estimat Average Glucose mg/dl Hemoglobin A1c (4.5-5.6) % Calcium 10.3 (8.6-10.3) mg/dl Phosphorus (2.5-4.9) mg/dl Magnesium 2.5 H (1.7-2.4) mg/dl Iron (35-150) mcg/dl TIBC (250-450) mcg/dl Unsaturated IBC (155-355) mcg/dl Transferrin % Sat (15-50) % Ferritin (8-388) ng/ml Total Bilirubin 0.4 (0.2-1.0) mg/dl Direct Bilirubin 0.1 (0-0.2) mg/dl AST 21 (13-39) U/L ALT 18 (7-52) U/L Alkaline Phosphatase 112 H (34-104) U/L Total Protein 8.0 (6.0-8.3) gm/dl Albumin 4.9 (3.4-5.0) gm/dl Lipase 138 H (11-82) U/L Urine Color Dark Yellow Urine Appearance Clear (Clear) Urine pH 5.5 (4.5-7.5) Ur Specific [place] 1.026 (1.000-1.030) Urine Protein Trace H (Negative) Urine Glucose (UA) Negative (Negative) Urine Ketones Trace H (Negative) Urine Blood Negative (Negative) Urine Nitrite Negative (Negative) Urine Bilirubin Negative (Negative) Urine Urobilinogen Negative (Negative) Ur Leukocyte Esterase Trace H (Negative) Urine WBC (Auto) 0-5 (0-5) /hpf Urine RBC (Auto) 0-2 (0-2) /hpf U Hyaline Cast (Auto) 11-20 H (0-2) /lpf U Epithel Cells (Auto) 0-2 (0-2) /hpf Urine Bacteria (Auto) None Seen (None Seen) PG Care Time/CCT Total # of Minutes Spent Total Time Spent with Patient: Total time spent is greater than 50% in coordination of care (as documented) at patient's floor/unit and/or counseling patient: Coding Level of Care Code 69619 INT INP/OBS CARE MIN Diagnoses MARKOS (acute kidney injury) N17.9
[2024-02-29 11:50] LABS: C Reactive Protein < 0.50 mg/dl (0-0.5)
[2024-02-29] MEDS: MAGNESIUM CHLORIDE W/CALCIUM 64MG DELAYED REL TAB PO SCH (13:48)
[2024-02-29 14:34] LABS: Adenovirus F 40/41 PCR Not Detected (NotDetected); Astrovirus PCR Not Detected (NotDetected); Campylobacter PCR Not Detected (NotDetected); Cryptosporidium PCR Not Detected (NotDetected); Cyclospora cayetanensis PCR Not Detected (NotDetected); Entamoeba histolytica PCR Not Detected (NotDetected); Enteroaggregative E.coli(EAEC) Not Detected (NotDetected); Enteropathogenic E.coli (EPEC) Not Detected (NotDetected); Enterotoxigenic E.coli (ETEC) Not Detected (NotDetected); Norovirus GI/GII PCR Not Detected (NotDetected); Plesiomonas shigelloides PCR Not Detected (NotDetected); Rotavirus A PCR Not Detected (NotDetected); Salmonella PCR Not Detected (NotDetected); Sapovirus PCR Not Detected (NotDetected); Shiga-like Toxin E.coli (STEC) Not Detected (NotDetected); Shigella/Enteroinvasive E.coli Not Detected (NotDetected); Vibrio cholerae PCR Not Detected (NotDetected); Vibrio species PCR Not Detected (NotDetected); Yersinia enterocolitica PCR Not Detected (NotDetected)
[2024-02-29 17:28] LABS: Giardia lamblia PCR DETECTED (NotDetected)
[2024-02-29] MEDS: metroNIDAZOLE 250 MG TAB PO SCH (20:28)
[2024-03-01 07:49] LABS: Basophils # (auto) 0.05 K/uL (0.00-0.20); Basophils % (auto) 0.8 %; Eosinophils # (auto) 0.24 K/uL (0.00-0.50); Eosinophils % (auto) 3.8 %; Hematocrit (blood only) 32.8 % (37.0-47.0); Hemoglobin 10.9 g/dl (12.0-16.0); Immature Granulocytes # (auto) 0.01 K/uL (0.01-0.20); Immature Granulocytes % (auto) 0.2 %; Lymphocytes % (auto) 36.1 %; Mean Corpuscular Hemoglobin 28.4 pg (25.0-34.0); Mean Corpuscular Hgb Conc 33.2 g/dL (32.0-36.0); Mean Corpuscular Volume 85.4 fL (80.0-100.0); Mean Platelet Volume 10.5 fL (9.4-12.4); Monocytes # (auto) 0.79 K/uL (0.11-0.59); Monocytes % (auto) 12.4 %; Neutrophils # (auto) 2.99 K/uL (1.40-6.50); Neutrophils % (auto) 46.7 %; Platelet Count 151 K/uL (130-400); RDW Coefficient of Variation 13.4 % (11.5-14.5); RDW Standard Deviation 41.7 fL (36.4-46.3); Red Blood Count 3.84 M/uL (4.20-5.40); White Blood Count 6.38 K/ul (4.8-10.8)
--- NOTE | 2024-03-01 07:59 | Hospitalist Progress Note ---
Date of Service March 01, 2024 Assessment & Plan (1) MARKOS (acute kidney injury): Plan: Acute kidney injury/hypokalemia- also worsened diarrhea w/ increase in PO magnesium recently, multiple medications changes to DM meds as well Creatinine 2.19 on admission, with base around 1.3 Potassium 3.3, with magnesium pending Hold lisinopril and triamterene/HCTZ Status post 1 L normal saline in the ED Continue NSS at 125 MLS per hour Recheck laboratories in a.m. 02/28 On NSS @ 125cc/hr for now, can decrease to 75cc/hr and monitor diarrhea (2BM this morning) Cr improved, 2.19--> 1.47 . K stable 3.6, mag 2.1 Home lisinopril, triamterene/HCTZ remains on hold for now Monitor BMP/electrolyte replacement as needed 03/01 - Labs from AM pending. Likely able to resume lisinopril if renal function stable however monitor in f/u about resuming her HCTZ-triamterene See below regarding diarrhea (2) Diarrhea: Plan: Diarrhea/history of Crohn's ileitis- She reports that she has not had a flareup of Crohn's disease for several years She does follow with Dr. Price, and has a colonoscopy scheduled for end may, which got rescheduled from earlier this summer Patient did have some improvement with cessation of metformin on 01/22, and worsening with this addition of Jardiance on 02/07 She will continue with Adalimumab per GI in the outpatient setting CT scan of abdomen pelvis without acute findings STOPPING MAG OXIDE, can order once daily SLOW MAG. Did report increased diarrhea w/ increasing mag supplementation (tolerating 500gm dose but 1000 causing diarrhea) -->Discussed w/ patient if needing ongoing mag at ut should utilize SLOW MAG, further mag oxide DISCONTINUED (also takes for hx migraines) GI consulted for below Stool PCR ordered, Giardia ESR, CRP NOT elevated Questran added by GI- discontinued given POSITIVE PCR STOOL TESTING FOR GIARDIA 02/28, discussed w/ GI and started Flagyl PO and will continue at ut to complete. Outpt f/u (3) Giardiasis: (4) Hypertension: Plan: Lisinopril, HCTZ-triamterene on HOLD given MARKOS as above, improving on IVF Per patient, no hx CHF but takes for BP management- discussed likely not best to continue HCTZ/triameterne if needing for BP to prevent dehydration (5) Diabetes mellitus: Plan: Diabetes mellitus- Hold glipizide Placed on Accu-Cheks with NovoLog SSI Monitor (6) Hypokalemia: Plan: improved on repeat, continue to monitor w/ diarrheal losses. (7) Fatigue: Plan: improving w/ above. continue to monitor (8) Phalanx fracture, foot: Plan: denied any trauma but having some pain to RIGHT foot, 3rd toe. does do a lot of work outside Xray on admission noting "age-indeterminate fracture at the base of the third digit proximal phalanx. Correlation with point tenderness is recommended." Reports improvement since not putting weight on, WBAT/pain control/elevation. Can consider jose antonio taping if needed but appearing stable at this time (9) Anxiety: Plan: stable continue home venlafaxine, buspar (10) Depression: Plan: stable, continue home meds Plan continued inpatient stay Admission and Anticipated Discharge Date Admission Date: February 28, 2024 Results & Data Results & Data Vital Signs (Past 12 Hours) Vital Signs Temp Pulse Pulse Resp BP Pulse Ox O2 Del Method 03/01/24 07:40 87 03/01/24 07:19 36.9 C 76 18 147/79 H 99 Room Air 03/01/24 02:48 36.5 C 78 20 152/78 H 96 Room Air 02/29/24 23:02 68 02/29/24 22:08 36.5 C 78 18 162/76 H 97 Room Air PG Care Time/CCT Total # of Minutes Spent Total Time Spent with Patient: Total time spent is greater than 50% in coordination of care (as documented) at patient's floor/unit and/or counseling patient: Coding Diagnoses MARKOS (acute kidney injury) N17.9 Diarrhea, unspecified type R19.7 Diarrhea type: unspecified type Giardiasis A07.1 Essential hypertension I10 Hypertension type: essential hypertension Type 2 diabetes mellitus without complication, without long-term current use of insulin E11.9 Diabetes mellitus type: type 2 Diabetes mellitus manager long term care insulin use: without chcf use Diabetes mellitus complication status: without complication Hypokalemia E87.6 Fatigue, unspecified type R53.83 Fatigue type: unspecified Phalanx fracture, foot [id number] Anxiety F41.9 Depression, unspecified depression type F32.9 Depression Type: unspecified (2) Diarrhea Diarrhea type: unspecified type Qualified Code(s): R19.7 - Diarrhea, un specified (4) Hypertension Hypertension type: essential hypertension Qualified Code(s): I10 - Essential (primary) hypertension (5) Diabetes mellitus Diabetes mellitus type: type 2 Diabetes mellitus chcf insulin use: without manager long term care use Diabetes mellitus complication status: without compli cation Qualified Code(s): E11.9 - Type 2 diabetes mellitus without complications (7) Fatigue Fatigue type: unspecified Qualified Code(s): R53.83 - Other fatigue (10) Depression Depression Type: unspecified Qualified Code(s): F32.9 - Major depressive disorder, single episode, unspecified
[2024-03-01 08:03] LABS: Albumin Level 3.9 gm/dl (3.4-5.0); BUN Creatinine Ratio 20.2 (10-20); Calcium 9.3 mg/dl (8.6-10.3); Est GFR (African American) 52.8 ml/min; Est GFR (Non-African American) 45.6 ml/min; Magnesium 1.7 mg/dl (1.7-2.4); Phosphorus 2.9 mg/dl (2.5-4.9); Potassium 3.8 mmol/L (3.5-5.1)
[2024-03-01 08:29] LABS: Folate (Folic Acid),Ser orPlas > 22.30 ng/ml (>5.38)
[2024-03-01 08:30] LABS: Vitamin B12 619 pg/ml (180-914)
[2024-03-01] MEDS ORDERED: CHOLESTYRAMINE LIGHT 4 GM PKT PO SCH (09:00)
--- NOTE | 2024-03-01 09:16 | Discharge Summary ---
Date of Service March 01, 2024 Admission HPI Per Admitting Provider The patient is a 73-year-old female with a past medical history including bilateral carpal tunnel syndrome, chronic diarrhea, anxiety, depression, hyperlipidemia, hypertension, Crohn's ileitis, migraine, and diabetes mellitus. She has had on and off diarrhea over the past 3 months, and was seen on 01/22, at which time metformin was discontinued. She reports that her diarrhea did proved somewhat, but was still persistent. On 02/07 she was started on Jardiance, and notes that her diarrhea had worsened. She has been working in the yard recently, and thinks that she may have been dehydrated due to yard work in the [facility], developed significant fatigue, and presented to the outpatient office today for evaluation and laboratories. She was told that her outpatient laboratories showed significant dehydration, and she was told to come into the emergency department for assessment. Admission Exam Per Admitting Provider The patient is awake, alert and oriented 3, well developed and well nourished, normocephalic and atraumatic, lying in bed and in no acute distress. HEENT--PERRL, EOMI, mucous membranes and oropharynx mildly dry. Neck--supple. No JVD. No bruits. Thyroid normal, trachea midline, no adenopathy. Heart--normal S1 and S2. No murmurs, rubs or gallops. Lungs--clear bilaterally, no respiratory distress, no accessory muscle use. Abdomen--normal bowel sounds and soft. Nontender. Nondistended, no hernias or masses, no organomegaly. Extremities--No edema. Dermatologic--normal skin turgor, normal color, no abnormal lymph nodes, no rash. Neurologic--cranial nerves II through XII grossly intact. Rheumatologic--normal range of motion. Mild reproducible pain over dorsum of right foot around second, third and fourth MTPs Psychiatric--normal affect. Principal Diagnosis MARKOS on CKD, Giardiasis, Diarrhea Discharge Exam General: 73yo female sitting up in the bed, NAD Head atraumatic, normocephalic, mmm, trachea midline Resp: even/unlabored, no w/c/r, on room air CV: RRR, no significant m/r/g, no pitting edema/calf tenderness GI: +BS, soft/NT no rivera MSK/Neuro: nonfocal, answering questions appropriately slight tenderness/edema to dorsum RIGHT foot around 3rd digit at the base of phalanx, no significant ecchymosis/bruising, no lesions/openings/redness Psych: AOx3, cooperative with exam Discharge Data Allergies Allergy/AdvReac Type Severity Reaction Status Date / Time cat dander Allergy Unknown HAY FEVER Verified 02/28/24 09:53 fluticasone Allergy Unknown INFLAMED Verified 02/28/24 09:53 AIRWAYS ragweed pollen Allergy Unknown HAY FEVER Verified 02/28/24 09:53 salmeterol Allergy Unknown INFLAMED Verified 02/28/24 09:53 AIRWAYS metformin AdvReac Mild Diarrhea Verified 02/28/24 09:53 baclofen AdvReac Unknown DIZZY, Verified 02/28/24 09:53 NAUSEA, SWEATS AND NIGHTMARES butalbital AdvReac Unknown SWEATS AND Verified 02/28/24 09:53 NIGHTMARES clarithromycin AdvReac Unknown Nausea, Verified 02/28/24 09:53 diarrhea Consultations 02/28/24 18:01 ED Decision to Admit Stat 02/29/24 01:44 Consult Gastroenterology Routine Ordered Studies Abdomen/Pelvis CT 02/28/24 16:30 CT abd pelvis wo con CLINICAL HISTORY: markos nvd TECHNIQUE: Helical axial images of the abdomen and pelvis were obtained. Automated dose lowering techniques and/or adjustment according to patient size were utilized for this exam. This exam was performed without intravenous contrast. CT DOSE: 1092.05 mGy.cm COMPARISON: Comparison is made to CT abdomen pelvis 04/21/2019 FINDINGS: Lower chest: No acute abnormality. Liver: Unremarkable. No focal lesions are seen. Gallbladder and biliary tree: No calcified gallstones. Normal caliber wall. No intra- or extrahepatic biliary ductal dilation. Pancreas: Unremarkable, no focal lesions. Spleen: Unremarkable. Adrenals: Unremarkable. Kidneys and ureters: Nonobstructive nephrolithiasis is seen. Bladder: Limited evaluation due to underdistention. Reproductive organs: Incidental note is made of calcified fibroid. Bowel: A hiatal hernia is seen. Diverticulosis is seen without diverticulitis. Lymph nodes Retroperitoneal: Unremarkable. Pelvic: Unremarkable. Mesenteric: Unremarkable. Peritoneum: Normal. Vessels: Atherosclerotic calcifications are seen. Abdominal wall: Unremarkable. Bones: Degenerative changes in the visualized spine. 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 IMPRESSION: No acute abnormalities and in particular no evidence of bowel obstruction. ACT 112: Negative or not required by law. Electronically signed by: Reji Vicente M.D. 02/28/2024 5:11 PM Foot X-Ray 02/28/24 20:00 XR foot RT min 3V routine CLINICAL HISTORY: pain and swelling distal dorsum base of toes TECHNIQUE: 3 views of the right foot were obtained. Comparison: None available at the time of this dictation. FINDINGS: Fracture at the base of the third digit proximal phalanx is seen, of indeterm inate age. Surrounding calcific densities are seen. Degenerative changes are seen. Plantar and Achilles enthesophytes are seen. Soft tissue swelling is seen about the foot. IMPRESSION: There is age-indeterminate fracture at the base of the third digit proximal phalanx. Correlation with point tenderness is recommended. ACT 112: Negative or not required by law. Electronically signed by: Reji Vicente M.D. 02/29/2024 9:15 AM Hospital Course (1) MARKOS (acute kidney injury): Acute kidney injury/hypokalemia- also worsened diarrhea w/ increase in PO magnesium recently, multiple medications changes to DM meds as well Cr 2.19 on admission (baseline ~1.3) Held home lisinopril, triamterene/HCTZ, provided IVF hydration and checked stool studies as below given concerns for infectious etiology/ongoing dehydration from diarrhea losses. Also changed her mag oxide to SLOW magnesium to prevent diarrhea Cr improved to 1.47 on 02/28 and down to 1.19 prior to discharge and able to resume home lisinopril but discussed to follow up with primary care as reports taking HCTZ/triam for BP and not for fluid retention/edema to prveent worsening renal function/dehydration. Timing if/when to resume per PCP. Stool PCR testing resulted POSITIVE for Giardia, started Flagyl PO and discussed w/ GI to complete course at fl. Can continue Humira as regularly taking. CRP/ESR NOT elevated as checked given hx chrons. Outpt f/u (2) Diarrhea: history of Crohn's ileitis- As above, no recent flares (at least >10yrs per patient), ESR/CRP not elevated GI consulted, Stool testing POSITIVE GIARDIA as above, flagyl PO to complete course and diarrhea reportedly RESOLVED since starting. Also changed mag oxide to slow mag as takes for migraine hx as well and had increased diarrhea when increasing her home dose (3) Giardiasis: as above, Flagyl provided. Did put on contact precautions w/ positive testing while inpatient (4) Hypertension: Lisinopril, HCTZ-triamterene on HOLD given MARKOS as above, improving on IVF Per patient, no hx CHF but takes for BP management- discussed likely not best to continue HCTZ/triameterne if needing for BP to prevent dehydration but did resume lisinopril given normalization of Cr to 1.19 below prior baseline w/ hx DM (5) Diabetes mellitus: blood sugars acceptable and can continue home meds at dc as directed by PCP (6) Hypokalemia: replaced/resoled since resolution in diarrhea/holding diuretics (7) Fatigue: RESOLVED w/ tx of MARKOS and diarrhea (8) Phalanx fracture, foot: denied any trauma but having some pain to RIGHT foot, 3rd toe. does do a lot of work outside Xray on admission noting "age-indeterminate fracture at the base of the third digit proximal phalanx. Correlation with point tenderness is recommended." Reports improvement since not putting weight on, WBAT/pain control/elevation. Can consider jose antonio taping if needed but appearing stable at this time and WBAT/avoid strenuous activities (9) Anxiety: stable continued home venlafaxine, buspar (10) Depression: stable, continued home meds Plan discharged home Total Time Total Time Spent Total Time Spent (In Minutes): 45 Discharge Plan Discharge Items Patient Disposition: Home - Self-Care Reason For Visit: MARKOS Discharge Diagnosis: Acute kidney injury, dehydration, giardia Goals: You have been hospitalized for an acute medical problem. During your stay at [facility], we have made an effort to correct the problem that brought you to the hospital while keeping you as comfortable as possible. Medications were used to bring your condition under control and your discharge instructions will include directions for any medications you should take after leaving the hospital. Please make sure you see your Primary Care Provider as part of your follow up plan. Activity: As commented below Non-emergency contact: Primary Care Provider and [employer] Call non-emergency contact if: you have any medication questions, your symptoms worsen, your pain is not controlled and you have a fever Follow-up/Referrals: Leeann Azul CRNP [Primary Care Provider] - 03/13/24 10:30 am (Hospital follow up scheduled with Leeann Azul on March 13 at 10:30) William Price DO [Physician] - 03/09/24 10:00 am (Hospital follow up scheduled March 09 at 10:00 with Deb Barton) Diet: Carb Consistent or DM2 Addtl Attending Provider Instructions: You have been hospitalized with acute kidney injury likely secondary to dehydration and diarrhea as well as diuretics for blood pressure. You were given IV fluids and held your diuretics and GI was consulted and we obtained stool studies which showed positive for Giardia. We have placed you on flagyl which will be continued 250mg by mouth three times a day for 7 days. AVOID alcohol while on this medication. You have been switched from mag oxide to SLOW magnesium to keep your stores stable and prevent diarrhea. Please HOLD your HCTZ-triamterene for now and follow up with primary care about timing to resume these. Please monitor blood pressures at home. Please follow up with primary care in the next week to monitor your status. Please return to the ER with any worsening diarrhea, inability to keep up with oral intake, fevers, abdominal pain or any symptoms concerning you. Pending Studies at Discharge: Yes Studies:: Giardia antigen Stand-Alone Forms: My [facility] ScaleGrid, Smoking Cessation Medications and DC Order Prescriptions: New metronidazole 250 mg Tablet 250 mg PO TID 7 Days Qty: 21 0RF magnesium chloride [Mag 64] 64 mg Tablet,Delayed Release (Dr/Ec) 64 mg PO QAM Qty: 30 0RF Continued albuterol sulfate [Ventolin HFA] 90 mcg/actuation HFA aerosol inhaler 2 puffs INH Q4H PRN (Reason: shortness of breath or wheezing) Qty: 18 5RF venlafaxine 150 mg capsule,extended release 24hr 300 mg PO QAM Qty: 180 3RF Rx Instructions: TAKE 2 CAPSULES ONCE DAILY Humira(CF) Pen 40 mg/0.4 mL pen injector kit 40 mg subcut Q14D 90 Days Qty: 6 3RF Qulipta 60 mg tablet 60 mg PO DAILY Qty: 30 5RF buspirone 10 mg tablet 10 mg PO BID PRN (Reason: anxiety) Qty: 180 3RF atorvastatin 80 mg tablet 80 mg PO DAILY Qty: 90 3RF Rx Instructions: pt aware dose change glipizide 5 mg tablet extended release 24hr 5 mg PO DAILY Qty: 30 5RF Hold Instructions: diarrhea lisinopril 20 mg tablet 20 mg PO QPM Qty: 90 3RF Align 4 mg capsule 12 mg PO QAM Rx Instructions: otc unable to verify potassium 99 mg tablet 99 mg PO QPM multivitamin Tablet 1 tab PO QPM Rx Instructions: otc unable to verify folic acid 1 mg Tablet 1 mg PO QAM cholecalciferol (vitamin D3) [Vitamin D3] 2,000 unit Tablet 2,000 unit PO QAM Rx Instructions: otc unable to verify ascorbic acid (vitamin C) [Vitamin C] 500 mg Tablet 500 mg PO QAM Rx Instructions: otc unable to verify calcium lactate 84 mg (648 mg) Tablet 84 mg PO BID Rx Instructions: otc unable to verify cetirizine 10 mg tablet 10 mg PO QAM Rx Instructions: otc unable to verify omeprazole 20 mg tablet,delayed release (DR/EC) 20 mg PO QAM Held triamterene-hydrochlorothiazid 37.5-25 mg capsule 1 cap PO QAM Qty: 90 3RF Hold Instructions: Resume on 03/07/24. please hold until discussed with PCP about timing to resume Discontinued magnesium oxide 250 mg Tablet 250 mg PO BID Rx Instructions: otc unable to verify Discharge Orders: Discharge Order (Routine); Ordered 03/01/24 Ordered By: Tiki Smiley/Other Patient Handouts: High Blood Sugar (Hyperglycemia), Hypoglycemia (Low Blood Sugar), Type 2 Diabetes Admission Data Admit Date/Time: 02/28/24 20:06 Attending Provider: Shree Mai Admit Provider: Jayden Gordon Primary Care Provider: Leeann Azul Other Providers: William Price; Jayden Gordon; Choco Lowe Jr Other Interventions: Discharge Summary Assessment (RN) Last Done: 03/01/24 10:05 Supervising Physician Co-Signing Physician Notes The patient was not seen by me. The chart was reviewed. Case discussed with DENIZ Del Rosario. Agree with assessment and plan Coding Level of Care Code 88292 INP/OBS DISCH >30 MIN Diagnoses MARKOS (acute kidney injury) N17.9 Diarrhea, unspecified type R19.7 Diarrhea type: unspecified type Giardiasis A07.1 Essential hypertension I10 Hypertension type: essential hypertension Type 2 diabetes mellitus without complication, without long-term current use of insulin E11.9 Diabetes mellitus complication status: without complication Diabetes mellitus extermination supervisor insulin use: without extermination supervisor use Diabetes mellitus type: type 2 Hypokalemia E87.6 Fatigue, unspecified type R53.83 Fatigue type: unspecified Phalanx fracture, foot S92.919A Anxiety F41.9 Depression, unspecified depression type F32.9 Depression Type: unspecified
[2024-03-01] MEDS: ACETAMINOPHEN 1,000 MG/100 ML VIAL IV STA (09:30)
--- NOTE | 2024-03-01 09:42 | Gastroenterology Progress Note ---
Date of Service March 01, 2024 Assessment & Plan (1) MARKOS (acute kidney injury): Plan: 73 year old female with history of crohn's ileitis on Humira admitted with 8 weeks of loose stools and MARKOS, fecal calprotectin negative, c.diff, Campylobacter/salmonella/shigella negative in January 2024. CTAP without any obvious inflammatory changes Stool testing for Giardia was positive, complete course of Flagyl Follow up with established GI as an outpatient . Thank you for allowing us to participate in the care of this patient. Please call with any acute changes, questions or concerns. Please see addendum below with additional recommendation from my supervising physician. I spent a total of 40 minutes on the date of service in review of patient's record, and previously obtained information in person and appropriate medical visit, discussion and education of plan, with patient and/or caregiver, placing orders for tests/referral/procedures as medically necessary and documentation of pertinent clinical information in patient's medical records for their visit today. Admission and Anticipated Discharge Date Admission Date: February 28, 2024 Subjective Pt was seen and evaluated, chart reviewed. Feeling better. Stool less frequent. Still loose. Giardia was positive. Was started on Flagyl. Review of Systems Review of Systems: All other findings negative except as noted in HPI. Physical Exam Constitutional: WD/WN, vitals as above Respiratory: normal respiratory effort, lungs clear to auscultation Cardiovascular: Rate/Rhythm: regular rate and regular rhythm Gastrointestinal (Abdomen): normal bowel sounds, soft, nontender, no hepatosplenomegaly Skin: no rashes, warm and dry Results & Data Results & Data Vital Signs (Past 12 Hours) Vital Signs Temp Pulse Pulse Resp BP Pulse Ox O2 Del Method 03/01/24 07:40 87 03/01/24 07:19 36.9 C 76 18 147/79 H 99 Room Air 03/01/24 02:48 36.5 C 78 20 152/78 H 96 Room Air 02/29/24 23:02 68 02/29/24 22:08 36.5 C 78 18 162/76 H 97 Room Air Laboratory Results 03/01/24 03/01/24 02/29/24 Range/Units 07:18 07:12 20:25 WBC 6.38 (4.8-10.8) K/ul RBC 3.84 L (4.20-5.40) M/uL Hgb 10.9 L (12.0-16.0) g/dl Hct 32.8 L (37.0-47.0) % MCV 85.4 (80.0-100.0) fL MCH 28.4 (25.0-34.0) pg MCHC 33.2 (32.0-36.0) g/dL RDW Std Deviation 41.7 (36.4-46.3) fL RDW Coeff of Sherwin 13.4 (11.5-14.5) % Plt Count 151 (130-400) K/uL MPV 10.5 (9.4-12.4) fL Immature Gran % (Auto) 0.2 % Neut % (Auto) 46.7 % Lymph % (Auto) 36.1 % Churchill % (Auto) 12.4 % Eos % (Auto) 3.8 % Baso % (Auto) 0.8 % Neut # (Auto) 2.99 (1.40-6.50) K/uL Lymph # (Auto) 2.30 (1.20-3.40) K/uL Churchill # (Auto) 0.79 H (0.11-0.59) K/uL Eos # (Auto) 0.24 (0.00-0.50) K/uL Baso # (Auto) 0.05 (0.00-0.20) K/uL Immature Gran # (Auto) 0.01 (0.01-0.20) K/uL ESR (0-30) mm/hr Sodium 144 (136-145) mmol/L Potassium 3.8 (3.5-5.1) mmol/L Chloride 111 H (98-107) mmol/L Carbon Dioxide 29 (21-32) mmol/L Anion Gap 4 (3-11) BUN 24 H (6-23) mg/dl Creatinine 1.19 (0.6-1.2) mg/dl Est Cr Clr Drug Dosing 44.0 ml/min Est GFR ( Amer) 52.8 ml/min Est GFR (Non-Af Amer) 45.6 ml/min BUN/Creatinine Ratio 20.2 H (10-20) Glucose 114 H (70-99(Fasting)) mg/dl POC Glucose 102 H 102 H (70-99) mg/dl Calcium 9.3 (8.6-10.3) mg/dl Phosphorus 2.9 (2.5-4.9) mg/dl Magnesium 1.7 (1.7-2.4) mg/dl C-Reactive Protein (0-0.5) mg/dl Albumin 3.9 (3.4-5.0) gm/dl Vitamin B12 619 (180-914) pg/ml 25-OH Vitamin D Total 43.0 (30-100) ng/ml Folate > 22.30 (>5.38) ng/ml Stl C. cayetanensis PCR (NotDetected) Stool Rotavirus A PCR (NotDetected) Stl Adenov F 40/41 PCR (NotDetected) Stool Astrovirus (PCR) (NotDetected) Stool Campylobacter PCR (NotDetected) Stool Cryptosporidium PCR (NotDetected) Stl E.coli Shiga Tox PCR (NotDetected) Stl Enterotoxigenic E PCR (NotDetected) Stool EPEC (PCR) (NotDetected) Stool EAEC (PCR) (NotDetected) Stl E. histolytica PCR (NotDetected) Stool Giardia Lamblia PCR (NotDetected) Stool Salmonella PCR (NotDetected) Stool Sapovirus (PCR) (NotDetected) Stl P. shigelloides PCR (NotDetected) Stl Shigella/EIEC PCR (NotDetected) St Y.enterocolitica PCR (NotDetected) Stool Vibrio (PCR) (NotDetected) Stl Vibrio cholerae PCR (NotDetected) Stl Norovirus GI/GII PCR (NotDetected) Giardia Antigen 02/29/24 02/29/24 02/29/24 Range/Units 16:07 12:30 11:23 WBC (4.8-10.8) K/ul RBC (4.20-5.40) M/uL Hgb (12.0-16.0) g/dl Hct (37.0-47.0) % MCV (80.0-100.0) fL MCH (25.0-34.0) pg MCHC (32.0-36.0) g/dL RDW Std Deviation (36.4-46.3) fL RDW Coeff of Sherwin (11.5-14.5) % Plt Count (130-400) K/uL MPV (9.4-12.4) fL Immature Gran % (Auto) % Neut % (Auto) % Lymph % (Auto) % Churchill % (Auto) % Eos % (Auto) % Baso % (Auto) % Neut # (Auto) (1.40-6.50) K/uL Lymph # (Auto) (1.20-3.40) K/uL Churchill # (Auto) (0.11-0.59) K/uL Eos # (Auto) (0.00-0.50) K/uL Baso # (Auto) (0.00-0.20) K/uL Immature Gran # (Auto) (0.01-0.20) K/uL ESR (0-30) mm/hr Sodium (136-145) mmol/L Potassium (3.5-5.1) mmol/L Chloride (98-107) mmol/L Carbon Dioxide (21-32) mmol/L Anion Gap (3-11) BUN (6-23) mg/dl Creatinine (0.6-1.2) mg/dl Est Cr Clr Drug Dosing ml/min Est GFR ( Amer) ml/min Est GFR (Non-Af Amer) ml/min BUN/Creatinine Ratio (10-20) Glucose (70-99(Fasting)) mg/dl POC Glucose 114 H 119 H (70-99) mg/dl Calcium (8.6-10.3) mg/dl Phosphorus (2.5-4.9) mg/dl Magnesium (1.7-2.4) mg/dl C-Reactive Protein (0-0.5) mg/dl Albumin (3.4-5.0) gm/dl Vitamin B12 (180-914) pg/ml 25-OH Vitamin D Total (30-100) ng/ml Folate (>5.38) ng/ml Stl C. cayetanensis PCR Not Detected (NotDetected) Stool Rotavirus A PCR Not Detected (NotDetected) Stl Adenov F 40/41 PCR Not Detected (NotDetected) Stool Astrovirus (PCR) Not Detected (NotDetected) Stool Campylobacter PCR Not Detected (NotDetected) Stool Cryptosporidium PCR Not Detected (NotDetected) Stl E.coli Shiga Tox PCR Not Detected (NotDetected) Stl Enterotoxigenic E PCR Not Detected (NotDetected) Stool EPEC (PCR) Not Detected (NotDetected) Stool EAEC (PCR) Not Detected (NotDetected) Stl E. histolytica PCR Not Detected (NotDetected) Stool Giardia Lamblia PCR DETECTED A* (NotDetected) Stool Salmonella PCR Not Detected (NotDetected) Stool Sapovirus (PCR) Not Detected (NotDetected) Stl P. shigelloides PCR Not Detected (NotDetected) Stl Shigella/EIEC PCR Not Detected (NotDetected) St Y.enterocolitica PCR Not Detected (NotDetected) Stool Vibrio (PCR) Not Detected (NotDetected) Stl Vibrio cholerae PCR Not Detected (NotDetected) Stl Norovirus GI/GII PCR Not Detected (NotDetected) Giardia Antigen Pending 02/29/24 Range/Units 05:54 WBC (4.8-10.8) K/ul RBC (4.20-5.40) M/uL Hgb (12.0-16.0) g/dl Hct (37.0-47.0) % MCV (80.0-100.0) fL MCH (25.0-34.0) pg MCHC (32.0-36.0) g/dL RDW Std Deviation (36.4-46.3) fL RDW Coeff of Sherwin (11.5-14.5) % Plt Count (130-400) K/uL MPV (9.4-12.4) fL Immature Gran % (Auto) % Neut % (Auto) % Lymph % (Auto) % Churchill % (Auto) % Eos % (Auto) % Baso % (Auto) % Neut # (Auto) (1.40-6.50) K/uL Lymph # (Auto) (1.20-3.40) K/uL Churchill # (Auto) (0.11-0.59) K/uL Eos # (Auto) (0.00-0.50) K/uL Baso # (Auto) (0.00-0.20) K/uL Immature Gran # (Auto) (0.01-0.20) K/uL ESR 6 (0-30) mm/hr Sodium (136-145) mmol/L Potassium (3.5-5.1) mmol/L Chloride (98-107) mmol/L Carbon Dioxide (21-32) mmol/L Anion Gap (3-11) BUN (6-23) mg/dl Creatinine (0.6-1.2) mg/dl Est Cr Clr Drug Dosing ml/min Est GFR ( Amer) ml/min Est GFR (Non-Af Amer) ml/min BUN/Creatinine Ratio (10-20) Glucose (70-99(Fasting)) mg/dl POC Glucose (70-99) mg/dl Calcium (8.6-10.3) mg/dl Phosphorus (2.5-4.9) mg/dl Magnesium (1.7-2.4) mg/dl C-Reactive Protein < 0.50 (0-0.5) mg/dl Albumin (3.4-5.0) gm/dl Vitamin B12 (180-914) pg/ml 25-OH Vitamin D Total (30-100) ng/ml Folate (>5.38) ng/ml Stl C. cayetanensis PCR (NotDetected) Stool Rotavirus A PCR (NotDetected) Stl Adenov F 40/41 PCR (NotDetected) Stool Astrovirus (PCR) (NotDetected) Stool Campylobacter PCR (NotDetected) Stool Cryptosporidium PCR (NotDetected) Stl E.coli Shiga Tox PCR (NotDetected) Stl Enterotoxigenic E PCR (NotDetected) Stool EPEC (PCR) (NotDetected) Stool EAEC (PCR) (NotDetected) Stl E. histolytica PCR (NotDetected) Stool Giardia Lamblia PCR (NotDetected) Stool Salmonella PCR (NotDetected) Stool Sapovirus (PCR) (NotDetected) Stl P. shigelloides PCR (NotDetected) Stl Shigella/EIEC PCR (NotDetected) St Y.enterocolitica PCR (NotDetected) Stool Vibrio (PCR) (NotDetected) Stl Vibrio cholerae PCR (NotDetected) Stl Norovirus GI/GII PCR (NotDetected) Giardia Antigen PG Care Time/CCT Total # of Minutes Spent Total Time Spent with Patient: Total time spent is greater than 50% in coordination of care (as documented) at patient's floor/unit and/or counseling patient: Coding Level of Care Code 23078 SUB INP/OBS CARE 2/35MIN Diagnoses MARKOS (acute kidney injury) N17.9
[2024-03-01] MEDS: lisinopril 20 MG TAB PO SCH (09:49)
== END 2024-03-01 10:29 | disposition home or self-care (01) ==
LOC: 2S 15:16 → ED 15:16 → SUATTDRO 20:06 → 2S 21:53